=== PATIENT | male | born 1965 | race Two or more races ===

== ENCOUNTER 2018-02-01 17:25 | Inpatient (IN) | payer OTHER ==
[2018-02-01 17:43] VITALS: BMI 25.4
--- NOTE | 2018-02-01 21:31 | HP ---
CIWA Score - CIWA Score Nausea/Vomitin (voiting x 1) Muscle Tremors: 4-Moderate,w/Arms Extend Anxiety: 4-Mod. Anxious/Guarded Agitation: 1-Slight > Activity Paroxysmal Sweats: 1-Minimal Palms Moist Orientation: 1-Uncertain about Date Tacttile Disturbances: 0-None Auditory Disturbances: 0-None Visual Disturbances: 0-None Headache: 3-Moderate CIWA-Ar Total Score: 16 Admission ROS S - HPI Chief Complaint: Alcohol withdrawal symptoms Allergies/Adverse Reactions: Allergies Allergy/AdvReac Type Severity Reaction Status Date / Time fish derived [Fish derived] Allergy Intermediate Swelling Verified 02/01/18 18: 50 iodine [Iodine] Allergy Intermediate Verified 02/01/18 18:50 UNCODED ALLERGY SELECTION Allergy Intermediate SWELLING--D Verified 02/01/18 18: 48 YE History of Present Illness: 52 years old with a 15 years history of alcohol dependence is seeking admission to detox. Patient has been in previous detox and reports 18 months of sobriety. He reports medical history of depression. He reports suicide attempt in 1993 and denies suicidal and homicidal ideation at this time. Patient is on methadone 30mg with [facility]. LDM was today, 02/01/2018. Dose is yet to be confirmed by the nurse. Exam Limitations: No Limitations - Ebola screening Have you traveled outside of the country in the last 21 days: No Have you had contact with anyone from an Ebola affected area: No Have you been sick,other than usual withdrawal symptoms: No Do you have a fever: No - Review of Systems Constitutional: Chills, Loss of Appetite, Malaise, Night Sweats, Changes in sleep EENT: reports: Nose Congestion Respiratory: reports: No Symptoms reported Cardiac: reports: No Symptoms Reported GI: reports: Diarrhea, Nausea, Poor Appetite, Poor Fluid Intake, Vomiting, Abdominal cramping : reports: No Symptoms Reported Musculoskeletal: reports: No Symptoms Reported Integumentary: reports: Flushing Neuro: reports: Headache, Tingling, Tremors Endocrine: reports: Flushing Hematology: reports: No Symptoms Reported Psychiatric: reports: Agitated, Anxious Other Systems: Reviewed and Negative Patient History - Patient Medical History Hx Anemia: No Hx Asthma: No Hx Chronic Obstructive Pulmonary Disease (COPD): No Hx Cancer: No Hx Cardiac Disorders: No Hx Congestive Heart Failure: No Hx Hypertension: No Hx Hypercholesterolemia: No Hx Pacemaker: No HX Cerebrovascular Accident: No Hx Seizures: No Hx Dementia: No Hx Diabetes: No Hx Gastrointestinal Disorders: No Hx Liver Disease: No Hx Genitourinary Disorders: No Hx Sexually Transmitted Disorders: No Hx Renal Disease (ESRD): No Hx Thyroid Disease: No Hx Human Immunodeficiency Virus (HIV): No (NEGATIVE 2017) Hx Hepatitis C: No Hx Depression: Yes (ON MEDS) Hx Suicide Attempt: No (Suicide attempt in 1993. Denies suicidal ideation at this time) Hx Bipolar Disorder: Yes Hx Schizophrenia: No - Patient Surgical History Past Surgical History: No Hx Neurologic Surgery: No Hx Cataract Extraction: No Hx Cardiac Surgery: No Hx Lung Surgery: No Hx Abdominal Surgery: No Hx Appendectomy: No Hx Cholecystectomy: No Hx Genitourinary Surgery: No Hx Orthopedic Surgery: No Anesthesia Reaction: No - PPD History Previous Implant?: No Documented Results: Negative w/o proof Implanted On Prior [facility] Admission?: Yes Date: 05/12/12 Results: TBD PPD to be Administered?: Yes - Reproductive History Patient is a Female of Child Bearing Age (11 -55 yrs old): No (MALE) - Smoking Cessation Smoking history: Current every day smoker Have you smoked in the past 12 months: Yes Aproximately how many cigarettes per day: 5 Hx Chewing Tobacco Use: No Initiated information on smoking cessation: Yes 'Breaking Loose' booklet given: 02/01/18 - Substance & Tx. History Hx Alcohol Use: Yes Hx Substance Use: No Substance Use Type: Alcohol Hx Substance Use Treatment: Yes - Substances Abused Alcohol Route: Oral Frequency: Daily Amount used: VODKA - 2 pints Age of first use: 10 Date of Last Use: 02/01/18 Family Disease History - Family Disease History Family Disease History: Diabetes: Grandparent (GF-), CA: Father (COLON- ), Other: Mother (AIDS-) Admission Physical Exam BHS - Vital Signs Vital Signs: Vital Signs - 24 hr 02/01/18 17:40 Temperature 98.3 F Pulse Rate 114 H Respiratory 18 Rate Blood Pressure 129/79 - Physical General Appearance: Yes: Moderate Distress HEENTM: Yes: EOMI, Normal ENT Inspection, Normal Voice, SIERRA, Other (missing upper and lower teeth) Respiratory: Yes: Lungs Clear, Normal Breath Sounds, No Respiratory Distress Neck: Yes: Supple Breast: Yes: Breast Exam Deferred Cardiology: Yes: Regular Rhythm, Regular Rate, Tachycardia Abdominal: Yes: Normal Bowel Sounds Genitourinary: Yes: Within Normal Limits Back: Yes: Normal Inspection Musculoskeletal: Yes: Back pain Extremities: Yes: Normal Inspection Neurological: Yes: Alert, Normal Mood/Affect Integumentary: Yes: Dry Lymphatic: Yes: Within Normal Limits - Diagnostic (1) Depression Current Visit: Yes Status: Chronic Qualifiers: Major depression episode severity: unspecified (2) Nicotine dependence Current Visit: Yes Status: Chronic Qualifiers: Nicotine product type: cigarettes Substance use status: uncomplicated Qualified Code(s): F17.210 - Nicotine dependence, cigarettes, uncomplicated (3) Alcohol dependence with uncomplicated withdrawal Current Visit: Yes Status: Chronic (4) Methadone maintenance therapy patient Current Visit: Yes Status: Chronic BHS Breath Alcohol Content Breath Alcohol Content: 0.177 Urine Drug Screen - Results Drug Screen Negative: No Urine Drug Screen Results: MTD-Methadone
[2018-02-01] MEDS ORDERED: P-EPHED 60MG/TRIPROLIDI 2.5MG TABLET PO PRN (21:44)
[2018-02-01] MEDS ORDERED: ACETAMINOPHEN 325 MG TABLET (FP) PO PRN (21:44)
[2018-02-01] MEDS ORDERED: MENTHOL/PHENOL 1 EACH UD MM PRN (21:44)
[2018-02-01] MEDS ORDERED: IBUPROFEN 400 MG TABLET (FP) PO PRN (21:44)
[2018-02-01] MEDS ORDERED: MAG HYDROX/AL HYDROX/SIMETH 30 ML UNIT-DOSE CUP PO PRN (21:44)
[2018-02-01] MEDS ORDERED: MAGNESIUM CITRATE 300 ML BOTTLE PO PRN (21:44)
[2018-02-01] MEDS ORDERED: chlordiazePOXIDE HCL 25 MG CAPSULE PO PRN (21:44)
[2018-02-01] MEDS ORDERED: MAGNESIUM HYDROX 2400MG/30ML ORAL SUSPENSION 30 ML CUP PO PRN (21:44)
[2018-02-01] MEDS ORDERED: LOPERAMIDE HCL 2 MG CAPSULE PO PRN (21:44)
[2018-02-01] MEDS ORDERED: guaiFENesin/D-METHORPHAN HB 10 ML UNIT-DOSE CUPS PO PRN (21:44)
[2018-02-01] MEDS ORDERED: NICOTINE POLACRILEX 2 MG GUM BC PRN (21:44)
[2018-02-01] MEDS ORDERED: MELATONIN 5 MG TABLETS PO PRN (22:00)
[2018-02-01] MEDS: chlordiazePOXIDE HCL 25 MG CAPSULE PO SCH (23:08)
[2018-02-01] MEDS: THIAMINE HCL 100 MG TABLET (FP) PO SCH (23:08)
[2018-02-02 02:09] LABS: URINE APPEARANCE CLEAR; URINE BILIRUBIN NEGATIVE (<2.0 mg/dL); URINE BLOOD NEGATIVE (NEGATIVE); URINE COLOR AMBER; URINE GLUCOSE (UA) NEGATIVE (NEGATIVE); URINE KETONE NEGATIVE (NEGATIVE); URINE LEUK ESTERASE TRACE (NEGATIVE); URINE NITRITE NEGATIVE (NEGATIVE); URINE UROBILINOGEN 4.0 E.U/dl mg/dL (0.2-1.0)
[2018-02-02 02:12] LABS: URINE PROTEIN 2+ (NEGATIVE)
[2018-02-02 03:20] LABS: URINE MUCUS MODERATE
[2018-02-02] MEDS: chlordiazePOXIDE HCL 25 MG CAPSULE PO SCH ×4 (05:26→22:41)
[2018-02-02] MEDS ORDERED: METHADONE HCL 10 MG TABLET PO ONE (09:08)
[2018-02-02 09:59] LABS: HEMATOCRIT 38.9 % (35.4-49); HEMOGLOBIN 12.7 GM/dL (11.7-16.9); MCH 30.1 pg (25.7-33.7); MCHC 32.8 g/dl (32.0-35.9); MEAN CELL VOLUME 91.9 fl (80-96); MEAN PLT VOLUME 8.9 fl (7.5-11.1); PLATELET COUNT 263 K/MM3 (134-434); RBC 4.23 M/mm3 (4.00-5.60); RDW 15.7 % (11.9-15.9); WHITE BLOOD COUNT 4.2 K/mm3 (4.0-10.0)
[2018-02-02] MEDS: PRENATAL VITAMINS W/ FOLIC ACID TABLET (FP) PO SCH (10:12)
[2018-02-02] MEDS: NICOTINE 14 MG/24 HOURS TOPICAL PATCH TD SCH (10:13)
[2018-02-02 10:24] LABS: CHLORIDE 102 mmol/L (98-107); POTASSIUM 4.5 mmol/L (3.5-5.1); SODIUM 139 mmol/L (136-145)
[2018-02-02 10:43] LABS: ALBUMIN 3.8 g/dl (3.4-5.0); ALK PHOS 101 U/L (45-117); ANION GAP 6 (8-16); BILIRUBIN,TOTAL 0.4 mg/dL (0.2-1.0); BLOOD UREA NITROGEN 17 mg/dL (7-18); CALCIUM 9.4 mg/dL (8.5-10.1); CO2 31 mmol/L (21-32); CREATININE 0.7 mg/dL (0.7-1.3); GLUCOSE,RANDOM 72 mg/dL (74-106); SGOT/AST 100 U/L (15-37); SGPT/ALT 128 U/L (12-78); TOT PROT 7.3 g/dl (6.4-8.2)
--- NOTE | 2018-02-02 10:43 | PN ---
S CIWA - CIWA Score Nausea/Vomitin-No Nausea/No Vomiting Muscle Tremors: 3 Anxiety: 5 Agitation: 4-Moderately Restless Paroxysmal Sweats: 1-Minimal Palms Moist Orientation: 0-Oriented Tacttile Disturbances: 0-None Auditory Disturbances: 0-None Visual Disturbances: 0-None Headache: 0-None Present CIWA-Ar Total Score: 13 S Progress Note (SOAP) Subjective: ANXIETY,SWEATS,FATIGUE,INTERMITTENT SLEEP. Objective: 02/02/18 10:42 Vital Signs Temperature 97.5 F L 02/02/18 09:22 Pulse Rate 76 02/02/18 09:22 Respiratory Rate 18 02/02/18 09:22 Blood Pressure 101/63 02/02/18 09:22 O2 Sat by Pulse Oximetry (%) Laboratory Last Values WBC 4.2 K/mm3 (4.0-10.0) D 02/02/18 07:00 RBC 4.23 M/mm3 (4.00-5.60) 02/02/18 07:00 Hgb 12.7 GM/dL (11.7-16.9) 02/02/18 07:00 Hct 38.9 % (35.4-49) 02/02/18 07:00 MCV 91.9 fl (80-96) 02/02/18 07:00 MCH 30.1 pg (25.7-33.7) D 02/02/18 07:00 MCHC 32.8 g/dl (32.0-35.9) 02/02/18 07:00 RDW 15.7 % (11.9-15.9) 02/02/18 07:00 Plt Count 263 K/MM3 (134-434) 02/02/18 07:00 MPV 8.9 fl (7.5-11.1) 02/02/18 07:00 Urine Color [place] 02/01/18 22:00 Urine Appearance Clear 02/01/18 22:00 Urine pH 6.0 (5.0-8.0) 02/01/18 22:00 Ur Specific [place] 1.030 (1.001-1.035) 02/01/18 22:00 Urine Protein 2+ (NEGATIVE) H 02/01/18 22:00 Urine Glucose (UA) Negative (NEGATIVE) 02/01/18 22:00 Urine Ketones Negative (NEGATIVE) 02/01/18 22:00 Urine Blood Negative (NEGATIVE) 02/01/18 22:00 Urine Nitrite Negative (NEGATIVE) 02/01/18 22:00 Urine Bilirubin Negative (<2.0 mg/dL) 02/01/18 22:00 Urine Urobilinogen 4.0 e.u/dl mg/dL (0.2-1.0) 02/01/18 22:00 Ur Leukocyte Esterase Trace (NEGATIVE) 02/01/18 22:00 Urine WBC (Auto) 6-10 /hpf (3-5) 02/01/18 22:00 Urine RBC (Auto) None /hpf (0-3) 02/01/18 22:00 Urine Mucus Moderate 02/01/18 22:00 Assessment: 02/02/18 10:43 WITHDRAWAL SX Plan: CONTINUE DETOX INCREASE PO FLUIDS REPEAT UA;UC TODAY
--- NOTE | 2018-02-02 14:01 | CONSULT ---
[facility] Psychiatric Consult - Data Date of interview: 02/02/18 Admission source: [facility] Identifying data: Readmission to [facility] for this 52 y/o male seeking detox treatment on for alcohol dependence.Patient is ,a father of six,homeless,unemployed and supported on SSI benefits. Substance Abuse History: Discussed with the patient.Mr Conde endorses a 40+ year history of alcohol abuse (consumes 1-2 pints of vodka daily).More details in current [facility] report : Smoking history: Current every day smoker. Have you smoked in the past 12 months: Yes. Aproximately how many cigarettes per day: 5. Hx Chewing Tobacco Use: No. Initiated information on smoking cessation: Yes. 'Breaking Loose' booklet given: 02/01/18. - Substance & Tx. History. Hx Alcohol Use: Yes. Hx Substance Use: No. Substance Use Type: Alcohol. Hx Substance Use Treatment: Yes. - Substances Abused. Alcohol. Route: Oral. Frequency: Daily. Amount used: VODKA - 2 pints. Age of first use: 10. Date of Last Use: 02/01/18 Medical History: Patient reports good general health. Psychiatric History: Patient admits to a history of 3-5 psychiatric hospitalizations.Onset of mental illness : early 20's. Known to [facility],[place] and other facilities in [facility].Diagnosed with Schizophrenia.Mr Conde indicates maintenance on thorazine 100 mg po bid.Patient reports OPD care at [facility] mental health clinic.Currently on methadone maintenance (30 mg/day) at [facility] .Denies history of suicide attempts. Physical/Sexual Abuse/Trauma History: Patient denies. Additional Comment: Urine Drug Screen Results: MTD-Methadone.Noted. Mental Status Exam - Mental Status Exam Alert and Oriented to: Time, Place, Person Cognitive Function: Good Patient Appearance: Well Groomed Mood: Nervous, Withdrawn Affect: Mood Congruent Patient Behavior: Fatigued, Cooperative Speech Pattern: Clear, Appropriate Voice Loudness: Normal Thought Process: Intact, Goal Oriented Thought Disorder: Not Present Hallucinations: Denies Suicidal Ideation: Denies Homicidal Ideation: Denies Insight/Judgement: Poor Sleep: Poorly, Difficulty falling asleep Appetite: Good Muscle strength/Tone: Normal Gait/Station: Normal Psychiatric Findings - Problem List ([place] 1, 2,3) (1) Alcohol dependence with uncomplicated withdrawal Current Visit: Yes Status: Chronic (2) Opioid dependence on agonist therapy Current Visit: Yes Status: Acute (3) Nicotine dependence Current Visit: Yes Status: Chronic Qualifiers: Nicotine product type: cigarettes Substance use status: uncomplicated Qualified Code(s): F17.210 - Nicotine dependence, cigarettes, uncomplicated (4) Schizophrenia Current Visit: Yes Status: Chronic Qualifiers: Schizophrenia type: unspecified Qualified Code(s): F20.9 - Schizophrenia, unspecified Comment: As per self-report and existing records. (5) Insomnia Current Visit: Yes Status: Acute - Initial Treatment Plan Initial Treatment Plan: Psychoeducation.Sleep hygiene.Detoxification in progress.Medication : thorazine 50 mg po bid.Side effects/benefits discussed with patient.Mr Conde agrees with this plan of care.Observation.
--- NOTE | 2018-02-02 16:45 | EKG ---
Test Reason : Blood Pressure : / mmHG Vent. Rate : 072 BPM Atrial Rate : 072 BPM P-R Int : 132 ms QRS Dur : 090 ms QT Int : 382 ms P-R-T Axes : 049 040 008 degrees QTc Int : 418 ms NORMAL SINUS RHYTHM NORMAL ECG NO PREVIOUS ECGS AVAILABLE Confirmed by MD Mathew, Fred ([id number]) on 02/02/2018 4:45:09 PM Referred By: Confirmed By:Fred Carmona MD
[2018-02-02 19:11] LABS: URINE APPEARANCE CLEAR; URINE BILIRUBIN NEGATIVE (<2.0 mg/dL); URINE BLOOD NEGATIVE (NEGATIVE); URINE COLOR YELLOW; URINE GLUCOSE (UA) NEGATIVE (NEGATIVE); URINE KETONE NEGATIVE (NEGATIVE); URINE LEUK ESTERASE NEGATIVE (NEGATIVE); URINE NITRITE NEGATIVE (NEGATIVE); URINE PROTEIN NEGATIVE (NEGATIVE)
[2018-02-02] MEDS: THIAMINE HCL 100 MG TABLET (FP) PO SCH (22:41)
[2018-02-02] MEDS: chlorproMAZINE HCL 25 MG TABLET PO SCH (22:43)
[2018-02-03] MEDS: chlordiazePOXIDE HCL 25 MG CAPSULE PO SCH ×3 (05:39→16:58)
[2018-02-03] MEDS: METHADONE HCL 10 MG TABLET PO SCH (05:40)
[2018-02-03] MEDS: PRENATAL VITAMINS W/ FOLIC ACID TABLET (FP) PO SCH (10:13)
[2018-02-03] MEDS: chlorproMAZINE HCL 25 MG TABLET PO SCH ×2 (10:14→22:22)
[2018-02-03] MEDS: NICOTINE 14 MG/24 HOURS TOPICAL PATCH TD SCH (10:16)
--- NOTE | 2018-02-03 10:56 | PN ---
[facility] CIWA - CIWA Score Nausea/Vomitin-No Nausea/No Vomiting Muscle Tremors: 5 Anxiety: 4-Mod. Anxious/Guarded Agitation: 2 Paroxysmal Sweats: No Perspiration Orientation: 0-Oriented Tacttile Disturbances: 3-Moderate Itch/Numb/Burn Auditory Disturbances: 0-None Visual Disturbances: 0-None Headache: 0-None Present CIWA-Ar Total Score: 14 S Progress Note (SOAP) Subjective: ANXIETY,IRRITABILITY,TREMORS,RESTLESSNESS,INTERMITTENT SLEEP. Objective: 02/03/18 10:57 Vital Signs Temperature 96.8 F L 02/03/18 09:15 Pulse Rate 68 02/03/18 09:15 Respiratory Rate 18 02/03/18 09:15 Blood Pressure 117/82 02/03/18 09:15 O2 Sat by Pulse Oximetry (%) Laboratory Last Values WBC 4.2 K/mm3 (4.0-10.0) D 02/02/18 07:00 RBC 4.23 M/mm3 (4.00-5.60) 02/02/18 07:00 Hgb 12.7 GM/dL (11.7-16.9) 02/02/18 07:00 Hct 38.9 % (35.4-49) 02/02/18 07:00 MCV 91.9 fl (80-96) 02/02/18 07:00 MCH 30.1 pg (25.7-33.7) D 02/02/18 07:00 MCHC 32.8 g/dl (32.0-35.9) 02/02/18 07:00 RDW 15.7 % (11.9-15.9) 02/02/18 07:00 Plt Count 263 K/MM3 (134-434) 02/02/18 07:00 MPV 8.9 fl (7.5-11.1) 02/02/18 07:00 Sodium 139 mmol/L (136-145) 02/02/18 07:00 Potassium 4.5 mmol/L (3.5-5.1) 02/02/18 07:00 Chloride 102 mmol/L (98-107) 02/02/18 07:00 Carbon Dioxide 31 mmol/L (21-32) 02/02/18 07:00 Anion Gap 6 (8-16) L 02/02/18 07:00 BUN 17 mg/dL (7-18) 02/02/18 07:00 Creatinine 0.7 mg/dL (0.7-1.3) D 02/02/18 07:00 Creat Clearance w eGFR > 60 (>60) 02/02/18 07:00 Random Glucose 72 mg/dL (74-106) L D 02/02/18 07:00 Calcium 9.4 mg/dL (8.5-10.1) 02/02/18 07:00 Total Bilirubin 0.4 mg/dL (0.2-1.0) 02/02/18 07:00 AST 100 U/L (15-37) H D 02/02/18 07:00 ALT 128 U/L (12-78) H D 02/02/18 07:00 Alkaline Phosphatase 101 U/L (45-117) D 02/02/18 07:00 Total Protein 7.3 g/dl (6.4-8.2) 02/02/18 07:00 Albumin 3.8 g/dl (3.4-5.0) 02/02/18 07:00 Urine Color Yellow 02/02/18 14:00 Urine Appearance Clear 02/02/18 14:00 Urine pH 7.0 (5.0-8.0) 02/02/18 14:00 Ur Specific [place] 1.027 (1.001-1.035) 02/02/18 14:00 Urine Protein Negative (NEGATIVE) 02/02/18 14:00 Urine Glucose (UA) Negative (NEGATIVE) 02/02/18 14:00 Urine Ketones Negative (NEGATIVE) 02/02/18 14:00 Urine Blood Negative (NEGATIVE) 02/02/18 14:00 Urine Nitrite Negative (NEGATIVE) 02/02/18 14:00 Urine Bilirubin Negative (<2.0 mg/dL) 02/02/18 14:00 Urine Urobilinogen 2.0 mg/dL (0.2-1.0) 02/02/18 14:00 Ur Leukocyte Esterase Negative (NEGATIVE) 02/02/18 14:00 Urine WBC (Auto) 6-10 /hpf (3-5) 02/01/18 22:00 Urine RBC (Auto) None /hpf (0-3) 02/01/18 22:00 Urine Mucus Moderate 02/01/18 22:00 Assessment: 02/03/18 10:57 WITHDRAWAL SX Plan: CONTINUE DETOX INCREASE PO FLUIDS
[2018-02-03] MEDS: chlordiazePOXIDE 5 MG CAPSULE PO SCH (22:22)
[2018-02-03] MEDS: THIAMINE HCL 100 MG TABLET (FP) PO SCH (22:22)
[2018-02-04] MEDS: METHADONE HCL 10 MG TABLET PO SCH (05:32)
[2018-02-04] MEDS: chlordiazePOXIDE 5 MG CAPSULE PO SCH ×3 (05:32→17:41)
[2018-02-04] MEDS: NICOTINE 14 MG/24 HOURS TOPICAL PATCH TD SCH (10:00)
[2018-02-04] MEDS: PRENATAL VITAMINS W/ FOLIC ACID TABLET (FP) PO SCH (10:00)
[2018-02-04] MEDS: chlorproMAZINE HCL 25 MG TABLET PO SCH ×2 (10:01→23:08)
--- NOTE | 2018-02-04 10:48 | PN ---
BHS Progress Note (SOAP) Subjective: SLIGHT ANXIETY,SWEATS. OOB AMBULATING WITH STEADY GAIT. Objective: 02/04/18 10:46 Vital Signs Temperature 96.4 F L 02/04/18 09:26 Pulse Rate 86 02/04/18 09:26 Respiratory Rate 18 02/04/18 09:26 Blood Pressure 121/77 02/04/18 09:26 O2 Sat by Pulse Oximetry (%) Laboratory Last Values WBC 4.2 K/mm3 (4.0-10.0) D 02/02/18 07:00 RBC 4.23 M/mm3 (4.00-5.60) 02/02/18 07:00 Hgb 12.7 GM/dL (11.7-16.9) 02/02/18 07:00 Hct 38.9 % (35.4-49) 02/02/18 07:00 MCV 91.9 fl (80-96) 02/02/18 07:00 MCH 30.1 pg (25.7-33.7) D 02/02/18 07:00 MCHC 32.8 g/dl (32.0-35.9) 02/02/18 07:00 RDW 15.7 % (11.9-15.9) 02/02/18 07:00 Plt Count 263 K/MM3 (134-434) 02/02/18 07:00 MPV 8.9 fl (7.5-11.1) 02/02/18 07:00 Sodium 139 mmol/L (136-145) 02/02/18 07:00 Potassium 4.5 mmol/L (3.5-5.1) 02/02/18 07:00 Chloride 102 mmol/L (98-107) 02/02/18 07:00 Carbon Dioxide 31 mmol/L (21-32) 02/02/18 07:00 Anion Gap 6 (8-16) L 02/02/18 07:00 BUN 17 mg/dL (7-18) 02/02/18 07:00 Creatinine 0.7 mg/dL (0.7-1.3) D 02/02/18 07:00 Creat Clearance w eGFR > 60 (>60) 02/02/18 07:00 Random Glucose 72 mg/dL (74-106) L D 02/02/18 07:00 Calcium 9.4 mg/dL (8.5-10.1) 02/02/18 07:00 Total Bilirubin 0.4 mg/dL (0.2-1.0) 02/02/18 07:00 AST 100 U/L (15-37) H D 02/02/18 07:00 ALT 128 U/L (12-78) H D 02/02/18 07:00 Alkaline Phosphatase 101 U/L (45-117) D 02/02/18 07:00 Total Protein 7.3 g/dl (6.4-8.2) 02/02/18 07:00 Albumin 3.8 g/dl (3.4-5.0) 02/02/18 07:00 Urine Color Yellow 02/02/18 14:00 Urine Appearance Clear 02/02/18 14:00 Urine pH 7.0 (5.0-8.0) 02/02/18 14:00 Ur Specific [place] 1.027 (1.001-1.035) 02/02/18 14:00 Urine Protein Negative (NEGATIVE) 02/02/18 14:00 Urine Glucose (UA) Negative (NEGATIVE) 02/02/18 14:00 Urine Ketones Negative (NEGATIVE) 02/02/18 14:00 Urine Blood Negative (NEGATIVE) 02/02/18 14:00 Urine Nitrite Negative (NEGATIVE) 02/02/18 14:00 Urine Bilirubin Negative (<2.0 mg/dL) 02/02/18 14:00 Urine Urobilinogen 2.0 mg/dL (0.2-1.0) 02/02/18 14:00 Ur Leukocyte Esterase Negative (NEGATIVE) 02/02/18 14:00 Urine WBC (Auto) 6-10 /hpf (3-5) 02/01/18 22:00 Urine RBC (Auto) None /hpf (0-3) 02/01/18 22:00 Urine Mucus Moderate 02/01/18 22:00 RPR Titer Nonreactive (NONREACTIVE) 02/02/18 07:00 02/04/18 10:47 Laboratory Tests 02/01/18 02/02/18 02/02/18 22:00 07:00 07:00 WBC 4.2 D RBC 4.23 Hgb 12.7 Hct 38.9 MCV 91.9 MCH 30.1 D MCHC 32.8 RDW 15.7 Plt Count 263 MPV 8.9 Sodium 139 Potassium 4.5 Chloride 102 Carbon Dioxide 31 Anion Gap 6 L BUN 17 Creatinine 0.7 D Creat Clearance w eGFR > 60 Random Glucose 72 L D Calcium 9.4 Total Bilirubin 0.4 AST 100 H D ALT 128 H D Alkaline Phosphatase 101 D Total Protein 7.3 Albumin 3.8 Urine Color Emili Urine Appearance Clear Urine pH 6.0 Ur Specific [place] 1.030 Urine Protein 2+ H Urine Glucose (UA) Negative Urine Ketones Negative Urine Blood Negative Urine Nitrite Negative Urine Bilirubin Negative Urine Urobilinogen 4.0 e.u/dl Ur Leukocyte Esterase Trace Urine WBC (Auto) 6-10 Urine RBC (Auto) None Urine Mucus Moderate RPR Titer 02/02/18 02/02/18 07:00 14:00 WBC RBC Hgb Hct MCV MCH MCHC RDW Plt Count MPV Sodium Potassium Chloride Carbon Dioxide Anion Gap BUN Creatinine Creat Clearance w eGFR Random Glucose Calcium Total Bilirubin AST ALT Alkaline Phosphatase Total Protein Albumin Urine Color Yellow Urine Appearance Clear Urine pH 7.0 Ur Specific [place] 1.027 Urine Protein Negative Urine Glucose (UA) Negative Urine Ketones Negative Urine Blood Negative Urine Nitrite Negative Urine Bilirubin Negative Urine Urobilinogen 2.0 Ur Leukocyte Esterase Negative Urine WBC (Auto) Urine RBC (Auto) Urine Mucus RPR Titer Nonreactive REPEAT UA WNL UC RESULT PENDING Assessment: 02/04/18 10:47 WITHDRAWAL SX Plan: CONTINUE DETOX/INCREASED PO FLUIDS
[2018-02-04] MEDS: chlordiazePOXIDE HCL 10 MG CAPSULE PO SCH (23:08)
[2018-02-04] MEDS: THIAMINE HCL 100 MG TABLET (FP) PO SCH (23:08)
[2018-02-05] MEDS: METHADONE HCL 10 MG TABLET PO SCH (05:45)
[2018-02-05 06:24] VITALS: BP 91/67; PULSE 72; TEMP 96.9
[2018-02-05] MEDS: chlordiazePOXIDE HCL 10 MG CAPSULE PO SCH (06:30)
--- NOTE | 2018-02-05 09:02 | DS ---
[facility] Detox Discharge Summary Admission Date: 02/01/18 Discharge Date: 02/05/18 - History Present History: Alcohol Dependence, MMTP Additional Comments: DETOX COMPLETED. Pertinent Past History: PLEASE SEE DX BELOW - Physical Exam Results Vital Signs: Vital Signs Temperature 96.9 F L 02/05/18 06:24 Pulse Rate 72 02/05/18 06:24 Respiratory Rate 18 02/05/18 06:24 Blood Pressure 91/67 02/05/18 06:24 O2 Sat by Pulse Oximetry (%) Pertinent Admission Physical Exam Findings: WITHDRAWAL SX Laboratory Last Values WBC 4.2 K/mm3 (4.0-10.0) D 02/02/18 07:00 RBC 4.23 M/mm3 (4.00-5.60) 02/02/18 07:00 Hgb 12.7 GM/dL (11.7-16.9) 02/02/18 07:00 Hct 38.9 % (35.4-49) 02/02/18 07:00 MCV 91.9 fl (80-96) 02/02/18 07:00 MCH 30.1 pg (25.7-33.7) D 02/02/18 07:00 MCHC 32.8 g/dl (32.0-35.9) 02/02/18 07:00 RDW 15.7 % (11.9-15.9) 02/02/18 07:00 Plt Count 263 K/MM3 (134-434) 02/02/18 07:00 MPV 8.9 fl (7.5-11.1) 02/02/18 07:00 Sodium 139 mmol/L (136-145) 02/02/18 07:00 Potassium 4.5 mmol/L (3.5-5.1) 02/02/18 07:00 Chloride 102 mmol/L (98-107) 02/02/18 07:00 Carbon Dioxide 31 mmol/L (21-32) 02/02/18 07:00 Anion Gap 6 (8-16) L 02/02/18 07:00 BUN 17 mg/dL (7-18) 02/02/18 07:00 Creatinine 0.7 mg/dL (0.7-1.3) D 02/02/18 07:00 Creat Clearance w eGFR > 60 (>60) 02/02/18 07:00 Random Glucose 72 mg/dL (74-106) L D 02/02/18 07:00 Calcium 9.4 mg/dL (8.5-10.1) 02/02/18 07:00 Total Bilirubin 0.4 mg/dL (0.2-1.0) 02/02/18 07:00 AST 100 U/L (15-37) H D 02/02/18 07:00 ALT 128 U/L (12-78) H D 02/02/18 07:00 Alkaline Phosphatase 101 U/L (45-117) D 02/02/18 07:00 Total Protein 7.3 g/dl (6.4-8.2) 02/02/18 07:00 Albumin 3.8 g/dl (3.4-5.0) 02/02/18 07:00 Urine Color Yellow 02/02/18 14:00 Urine Appearance Clear 02/02/18 14:00 Urine pH 7.0 (5.0-8.0) 02/02/18 14:00 Ur Specific [place] 1.027 (1.001-1.035) 02/02/18 14:00 Urine Protein Negative (NEGATIVE) 02/02/18 14:00 Urine Glucose (UA) Negative (NEGATIVE) 02/02/18 14:00 Urine Ketones Negative (NEGATIVE) 02/02/18 14:00 Urine Blood Negative (NEGATIVE) 02/02/18 14:00 Urine Nitrite Negative (NEGATIVE) 02/02/18 14:00 Urine Bilirubin Negative (<2.0 mg/dL) 02/02/18 14:00 Urine Urobilinogen 2.0 mg/dL (0.2-1.0) 02/02/18 14:00 Ur Leukocyte Esterase Negative (NEGATIVE) 02/02/18 14:00 Urine WBC (Auto) 6-10 /hpf (3-5) 02/01/18 22:00 Urine RBC (Auto) None /hpf (0-3) 02/01/18 22:00 Urine Mucus Moderate 02/01/18 22:00 RPR Titer Nonreactive (NONREACTIVE) 02/02/18 07:00 Laboratory Tests 02/01/18 02/02/18 02/02/18 22:00 07:00 07:00 WBC 4.2 D RBC 4.23 Hgb 12.7 Hct 38.9 MCV 91.9 MCH 30.1 D MCHC 32.8 RDW 15.7 Plt Count 263 MPV 8.9 Sodium 139 Potassium 4.5 Chloride 102 Carbon Dioxide 31 Anion Gap 6 L BUN 17 Creatinine 0.7 D Creat Clearance w eGFR > 60 Random Glucose 72 L D Calcium 9.4 Total Bilirubin 0.4 AST 100 H D ALT 128 H D Alkaline Phosphatase 101 D Total Protein 7.3 Albumin 3.8 Urine Color Emili Urine Appearance Clear Urine pH 6.0 Ur Specific [place] 1.030 Urine Protein 2+ H Urine Glucose (UA) Negative Urine Ketones Negative Urine Blood Negative Urine Nitrite Negative Urine Bilirubin Negative Urine Urobilinogen 4.0 e.u/dl Ur Leukocyte Esterase Trace Urine WBC (Auto) 6-10 Urine RBC (Auto) None Urine Mucus Moderate RPR Titer 02/02/18 02/02/18 07:00 14:00 WBC RBC Hgb Hct MCV MCH MCHC RDW Plt Count MPV Sodium Potassium Chloride Carbon Dioxide Anion Gap BUN Creatinine Creat Clearance w eGFR Random Glucose Calcium Total Bilirubin AST ALT Alkaline Phosphatase Total Protein Albumin Urine Color Yellow Urine Appearance Clear Urine pH 7.0 Ur Specific [place] 1.027 Urine Protein Negative Urine Glucose (UA) Negative Urine Ketones Negative Urine Blood Negative Urine Nitrite Negative Urine Bilirubin Negative Urine Urobilinogen 2.0 Ur Leukocyte Esterase Negative Urine WBC (Auto) Urine RBC (Auto) Urine Mucus RPR Titer Nonreactive - Treatment Hospital Course: Detox Protocol Followed, Detoxed Safely, Responded well, Discharged Condition Good - Medication Discharge Medications: Ambulatory Orders Chlorpromazine [Thorazine -] 100 mg PO BID #30 tablet 06/30/16 Chlorpromazine [Thorazine -] 50 mg PO BID #60 tablet 02/05/18 - Diagnosis (1) Alcohol dependence with uncomplicated withdrawal Status: Acute (2) Methadone maintenance therapy patient Status: Chronic (3) Nicotine dependence Status: Acute Qualifiers: Nicotine product type: cigarettes Substance use status: in withdrawal Qualified Code(s): F17.213 - Nicotine dependence, cigarettes, with withdrawal (4) Insomnia Status: Acute (5) Schizophrenia Status: Chronic Qualifiers: Schizophrenia type: unspecified Qualified Code(s): F20.9 - Schizophrenia, unspecified - AMA Did Patient Leave Against Medical Advice: No
== END 2018-02-05 07:16 | disposition home or self-care (01) | DRG 773 ==
LOC: YASAS 17:25 → Y3N 18:56
PROVIDERS: ADMIT Internal Medicine; ATTEND Internal Medicine
PROC: HZ2ZZZZ Detoxification Services for Substance Abuse Treatment (ICD-10-PCS; principal; 2018-02-01)
DX: F11.20 Opioid dependence, uncomplicated (principal); F10.230 Alcohol dependence with withdrawal, uncomplicated; F17.210 Nicotine dependence, cigarettes, uncomplicated; F20.9 Schizophrenia, unspecified; F31.9 Bipolar disorder, unspecified; G47.00 Insomnia, unspecified
CPT/HCPCS: 36415; 80053; 81003; 81015; 85027; 86593; 87086; 93005; 93010

== ENCOUNTER 2018-08-24 17:12 | Inpatient (IN) | payer OTHER ==
[2018-08-24 19:39] VITALS: BMI 25.8
--- NOTE | 2018-08-24 20:34 | HP ---
CIWA Score - CIWA Score Nausea/Vomitin Muscle Tremors: 2 Anxiety: 2 Agitation: 2 Paroxysmal Sweats: 2 Orientation: 1-Uncertain about Date Tacttile Disturbances: 0-None Auditory Disturbances: 0-None Visual Disturbances: 0-None Headache: 0-None Present CIWA-Ar Total Score: 12 Admission ROS BHS - HPI Chief Complaint: alcohol withdrawal symptoms Allergies/Adverse Reactions: Allergies Allergy/AdvReac Type Severity Reaction Status Date / Time fish derived [Fish derived] Allergy Intermediate Swelling Verified 06/28/18 18: 41 iodine [Iodine] Allergy Intermediate Verified 06/28/18 18:41 UNCODED ALLERGY SELECTION Allergy Intermediate SWELLING--D Verified 06/28/18 18: 41 YE History of Present Illness: 53 yo male with hx nicotine, alcohol, opioid and alcohol dependence is here seeking alcohol detox. Last detox [facility] 06/28/18 - 07/01/18. MMTP: [facility] on methadone maintenance 30 mg, last medicated today. Dose pending verification. PMHX: Hep C, depression. Denies suicidal / homicidal ideation. Denies hx seizures. Reports hx blackouts with last episode yesterday. Denies any significant period of sobriety. Exam Limitations: No Limitations - Ebola screening Have you traveled outside of the country in the last 21 days: No (N) Have you had contact with anyone from an Ebola affected area: No Have you been sick,other than usual withdrawal symptoms: No Do you have a fever: No - Review of Systems Constitutional: Loss of Appetite, Changes in sleep EENT: reports: No Symptoms Reported Respiratory: reports: No Symptoms reported Cardiac: reports: No Symptoms Reported GI: reports: Nausea, Poor Fluid Intake, Vomiting : reports: No Symptoms Reported Musculoskeletal: reports: No Symptoms Reported Integumentary: reports: No Symptoms Reported Neuro: reports: See HPI Endocrine: reports: Increased Thirst Hematology: reports: No Symptoms Reported Psychiatric: reports: Orientated x3, Depressed Other Systems: Reviewed and Negative Patient History - Patient Medical History Hx Anemia: No Hx Asthma: No Hx Chronic Obstructive Pulmonary Disease (COPD): No Hx Cancer: No Hx Cardiac Disorders: No Hx Congestive Heart Failure: No Hx Hypertension: No Hx Hypercholesterolemia: No Hx Pacemaker: No HX Cerebrovascular Accident: No Hx Seizures: No Hx Dementia: No Hx Diabetes: No Hx Gastrointestinal Disorders: No Hx Liver Disease: No Hx Genitourinary Disorders: No Hx Sexually Transmitted Disorders: No Hx Renal Disease (ESRD): No Hx Thyroid Disease: No Hx Human Immunodeficiency Virus (HIV): No Hx Hepatitis C: Yes (TXMENT IN PROGRESS) Hx Depression: Yes (ON MEDS) Hx Suicide Attempt: Yes (Suicide attempt in 1993. Denies suicidal ideation at this time) Hx Bipolar Disorder: Yes Hx Schizophrenia: No - Patient Surgical History Past Surgical History: No Hx Neurologic Surgery: No Hx Cataract Extraction: No Hx Cardiac Surgery: No Hx Lung Surgery: No Hx Breast Surgery: No Hx Breast Biopsy: No Hx Abdominal Surgery: No Hx Appendectomy: No Hx Cholecystectomy: No Hx Genitourinary Surgery: No Hx Section: No Hx Orthopedic Surgery: No Anesthesia Reaction: No - PPD History Previous Implant?: Yes Documented Results: Negative w/proof Date: 02/03/18 Results: 0MM PPD to be Administered?: No - Smoking Cessation Smoking history: Current every day smoker Have you smoked in the past 12 months: Yes Aproximately how many cigarettes per day: 5 Hx Chewing Tobacco Use: No Initiated information on smoking cessation: Yes 'Breaking Loose' booklet given: 08/24/18 - Substance & Tx. History Hx Alcohol Use: Yes Substance Use Type: Alcohol Hx Substance Use Treatment: Yes (Last detox [facility] 06/28/18 - 07/01/18) - Substances Abused Alcohol Route: Oral Frequency: Daily Amount used: 2 pints Age of first use: 7 Date of Last Use: 08/24/18 Family Disease History - Family Disease History Family Disease History: Diabetes: Grandparent (GF-), CA: Father (COLON- ), Other: Mother (AIDS-) Admission Physical Exam [facility] - Vital Signs Vital Signs: Vital Signs - 24 hr 08/24/18 19:37 Temperature 97.9 F Pulse Rate 82 Respiratory 18 Rate Blood Pressure 112/70 - Physical General Appearance: Yes: Disheveled, Mild Distress, Alcohol on Breath, Sweating , Anxious HEENTM: Yes: EOMI, Hearing grossly Normal, Normal ENT Inspection, Normocephalic , Normal Voice, SIERRA, Pharynx Normal, Tm's normal Respiratory: Yes: Chest Non-Tender, Lungs Clear, Normal Breath Sounds, No Respiratory Distress, No Accessory Muscle Use Neck: Yes: Within Normal Limits Breast: Yes: Breast Exam Deferred Cardiology: Yes: Regular Rhythm, Regular Rate Abdominal: Yes: Normal Bowel Sounds, Non Tender, Flat, Soft Genitourinary: Yes: Within Normal Limits Back: Yes: Normal Inspection Musculoskeletal: Yes: full range of Motion, Gait Steady, Pelvis Stable Extremities: Yes: Normal Capillary Refill, Normal Inspection, Normal Range of Motion, Non-Tender Neurological: Yes: gun fitter II-XII NML intact, Fully Oriented, Alert, Motor Strength 5/5, Depressed Affect Integumentary: Yes: Normal Color, Dry, Warm Lymphatic: Yes: Within Normal Limits - Diagnostic (1) Alcohol dependence with uncomplicated withdrawal Current Visit: Yes Status: Acute (2) Cannabis dependence Current Visit: Yes Status: Acute (3) Opioid dependence on agonist therapy Current Visit: Yes Status: Chronic Comment: MMTP: [facility] on methadone maintenance 30 mg, last medicated today. Dose pending verification. (4) Depression Current Visit: Yes Status: Suspected Qualifiers: Depression Type: unspecified Qualified Code(s): F32.9 - Major depressive disorder, single episode, unspecified (5) Nicotine dependence Current Visit: Yes Status: Chronic Qualifiers: Nicotine product type: cigarettes Substance use status: in withdrawal Qualified Code(s): F17.213 - Nicotine dependence, cigarettes, with withdrawal Cleared for Admission [facility] - Detox or Rehab [facility] Level of Care: Medically Managed Detox Regimen/Protocol: Librium [facility] Breath Alcohol Content Breath Alcohol Content: 0.169 Urine Drug Screen - Results Drug Screen Negative: No Urine Drug Screen Results: THC-Marijuana, OPI-Opiates, BZO-Benzodiazepines, MTD- Methadone, FEN-Fentanyl
[2018-08-24] MEDS ORDERED: MENTHOL/PHENOL 1 EACH UD MM PRN (20:43)
[2018-08-24] MEDS ORDERED: LOPERAMIDE HCL 2 MG CAPSULE PO PRN (20:43)
[2018-08-24] MEDS ORDERED: IBUPROFEN 400 MG TABLET (FP) PO PRN (20:43)
[2018-08-24] MEDS ORDERED: chlordiazePOXIDE HCL 25 MG CAPSULE PO PRN (20:43)
[2018-08-24] MEDS ORDERED: ACETAMINOPHEN 325 MG TABLET (FP) PO PRN (20:43)
[2018-08-24] MEDS ORDERED: MAG HYDROX/AL HYDROX/SIMETH 30 ML UNIT-DOSE CUP PO PRN (20:43)
[2018-08-24] MEDS ORDERED: P-EPHED 60MG/TRIPROLIDI 2.5MG TABLET PO PRN (20:43)
[2018-08-24] MEDS ORDERED: MAGNESIUM CITRATE 300 ML BOTTLE PO PRN (20:43)
[2018-08-24] MEDS ORDERED: MAGNESIUM HYDROX 2400MG/30ML ORAL SUSPENSION 30 ML CUP PO PRN (20:43)
[2018-08-24] MEDS ORDERED: guaiFENesin/D-METHORPHAN HB 10 ML UNIT-DOSE CUPS PO PRN (20:43)
[2018-08-24] MEDS ORDERED: NICOTINE POLACRILEX 2 MG GUM BUC PRN (20:43)
[2018-08-24] MEDS ORDERED: hydrOXYzine PAMOATE 50 MG CAPSULE (FP) PO PRN (20:43)
[2018-08-24] MEDS ORDERED: MELATONIN 5 MG TABLETS PO PRN (22:00)
[2018-08-24] MEDS: THIAMINE HCL 100 MG TABLET (FP) PO SCH (23:58)
[2018-08-24] MEDS: chlordiazePOXIDE HCL 25 MG CAPSULE PO SCH (23:59)
[2018-08-25] MEDS: chlordiazePOXIDE HCL 25 MG CAPSULE PO SCH ×4 (06:14→22:10)
[2018-08-25] MEDS: METHADONE HCL 10 MG TABLET PO SCH (09:56)
[2018-08-25] MEDS: PRENATAL VITAMINS W/ FOLIC ACID TABLET (FP) PO SCH (09:57)
[2018-08-25] MEDS ORDERED: PATIENT'S OWN MEDICATION (NON-FORMULARY) (Glecaprevir/Pibrentasvir [Mavyret 100-40 Mg Tabl PO SCH ×2 (10:00→17:00)
[2018-08-25 10:35] LABS: HEMATOCRIT 39.8 % (35.4-49); HEMOGLOBIN 12.6 GM/dL (11.7-16.9); MCH 29.4 pg (25.7-33.7); MCHC 31.6 g/dl (32.0-35.9); MEAN PLT VOLUME 9.3 fl (7.5-11.1); PLATELET COUNT 161 K/MM3 (134-434); RBC 4.29 M/mm3 (4.00-5.60); RDW 14.9 % (11.9-15.9); WHITE BLOOD COUNT 4.4 K/mm3 (4.0-10.0)
--- NOTE | 2018-08-25 10:39 | PN ---
S CIWA - CIWA Score Nausea/Vomitin Muscle Tremors: 2 Anxiety: 3 Agitation: 3 Paroxysmal Sweats: 1-Minimal Palms Moist Orientation: 0-Oriented Tacttile Disturbances: 0-None Auditory Disturbances: 0-None Visual Disturbances: 0-None Headache: 0-None Present CIWA-Ar Total Score: 11 BHS Progress Note (SOAP) Subjective: PATIENT C/O ANXIOUS/RESTLESS, NAUSEA/DIARRHEA AND SHAKES. Objective: 08/25/18 10:37 Vital Signs Temperature 96.7 F L 08/25/18 09:05 Pulse Rate 72 08/25/18 09:05 Respiratory Rate 18 08/25/18 09:05 Blood Pressure 129/89 08/25/18 09:05 O2 Sat by Pulse Oximetry (%) Laboratory Tests 08/25/18 07:00 WBC 4.4 RBC 4.29 Hgb 12.6 Hct 39.8 MCV 93.0 MCH 29.4 MCHC 31.6 L RDW 14.9 Plt Count 161 D MPV 9.3 PE: SKIN : +FLUSHING, WARM AND DRY CAR S1S2 RESP CTA BL EXT +TREMORS ALERT AND ORIENTED +ANXIOUS/RESTLESS Assessment: 08/25/18 10:39 WITHDRAWAL SYNDROME Plan: CONTINUE DETOX ENCOURAGE ORAL FLUIDS CONTINUE TO MONITOR CLINICALLY
--- NOTE | 2018-08-25 10:48 | EKG ---
Test Reason : Blood Pressure : / mmHG Vent. Rate : 075 BPM Atrial Rate : 075 BPM P-R Int : 146 ms QRS Dur : 088 ms QT Int : 376 ms P-R-T Axes : 057 036 023 degrees QTc Int : 419 ms NORMAL SINUS RHYTHM NORMAL ECG WHEN COMPARED WITH ECG OF 28-JUN-2018 22:34, NO SIGNIFICANT CHANGE WAS FOUND Confirmed by ANA CHACON MD ([id number]) on 08/25/2018 10:48:03 AM Referred By: Confirmed By:ANA CHACON MD
[2018-08-25 11:01] LABS: ALBUMIN 3.4 g/dl (3.4-5.0); ALK PHOS 99 U/L (45-117); ANION GAP 6 MMOL/L (8-16); BILIRUBIN,TOTAL 0.6 mg/dL (0.2-1); BLOOD UREA NITROGEN 14 mg/dL (7-18); CHLORIDE 103 mmol/L (98-107); CO2 31 mmol/L (21-32); CREATININE 0.6 mg/dL (0.55-1.3); GLUCOSE,RANDOM 87 mg/dL (74-106); POTASSIUM 4.2 mmol/L (3.5-5.1); SGOT/AST 86 U/L (15-37); SGPT/ALT 113 U/L (13-61); SODIUM 140 mmol/L (136-145); TOT PROT 6.8 g/dl (6.4-8.2)
[2018-08-25] MEDS: NICOTINE 14 MG/24 HOURS TOPICAL PATCH TD SCH (11:20)
--- NOTE | 2018-08-25 15:56 | PN ---
[facility] Progress Note Note: PATIENT CALLED HEPATITIS C PROVIDER DR. ADRIANA FRASER AT [facility] [phone]. HEPATITIS C RECORDS REQUESTED BY PATIENT TO BE FAXED TO [facility] REGARDING TREATMENT. PATIENT HAS OWN MEDICATION AND SENT TO PHARMACY FOR CONFIRMATION. MEDICATION TIMING CHANGED TO 5PM AND TO BE GIVEN 1 PACKAGE (3 TABLETS) DAILY AND ORDERED.
[2018-08-25] MEDS: PATIENT'S OWN MEDICATION (NON-FORMULARY) (Glecaprevir/Pibrentasvir [Mavyret 100-40 Mg Tabl PO SCH (17:04)
--- NOTE | 2018-08-25 19:08 | CONSULT ---
[facility] Psychiatric Consult - Data Date of interview: 08/25/18 Admission source: [facility] Identifying data: Re-admission to [facility] for this 53 y/o male seeking detoxification treatment on for opioid,cannabis and alcohol dependence.Patient is ,a father of three (claimed six dependents at a previous interview),homeless,unemployed and supported on SSI benefits. Substance Abuse History: Confirmed by the patient in this interview : Smoking history: Current every day smoker. Have you smoked in the past 12 months: Yes. Aproximately how many cigarettes per day: 5. Hx Chewing Tobacco Use: No. Initiated information on smoking cessation: Yes. 'Breaking Loose' booklet given : 08/24/18. - Substance & Tx. History. Hx Alcohol Use: Yes. Substance Use Type: Alcohol. Hx Substance Use Treatment: Yes (Last detox [facility] 06/28/18 - ). - Substances Abused. Alcohol. Route: Oral. Frequency: Daily. Amount used: 2 pints. Age of first use: 7. Date of Last Use: 08/24/18 Medical History: Hepatitis C. Psychiatric History: History of multiple psychiatric hospitalizations.Onset of mental illness : early s. Known history of past admissions to [facility], [facility] and other facilities in [facility].Patient is diagnosed with Paranoid Schizophrenia.Mr Conde states that he received trials of various antipsychotic medications. Responds only to thorazine. Prescribed thorazine 100 mg po bid by his OPD psychiatrist whom he sees at the [facility] mental health clinic. He is also on methadone maintenance (30 mg/day) at [facility] in [facility] ([facility] In this interview, the patient reveals a history of one suicide attempt, eight years ago, via overdose with pills. Physical/Sexual Abuse/Trauma History: Patient denies. Additional Comment: Urine Drug Screen Results: THC-Marijuana, OPI-Opiates, BZO- Benzodiazepines, MTD-Methadone, FEN-Fentanyl.Noted. Mental Status Exam - Mental Status Exam Alert and Oriented to: Time, Place, Person Cognitive Function: Good Patient Appearance: Well Groomed Mood: Nervous, Withdrawn Affect: Mood Congruent Patient Behavior: Fatigued, Cooperative Speech Pattern: Clear, Appropriate Voice Loudness: Normal Thought Process: Goal Oriented Thought Disorder: Not Present Hallucinations: Denies Suicidal Ideation: Denies Homicidal Ideation: Denies Insight/Judgement: Poor Sleep: Poorly, Difficulty falling asleep Appetite: Good Muscle strength/Tone: Normal Gait/Station: Normal Psychiatric Findings - Problem List ([place] 1, 2,3) (1) Opioid dependence on agonist therapy Current Visit: Yes Status: Acute Comment: MMTP: HELP on methadone maintenance 30 mg, last medicated today. Dose pending verification. (2) Alcohol dependence with uncomplicated withdrawal Current Visit: Yes Status: Acute (3) Cannabis dependence Current Visit: Yes Status: Acute (4) Nicotine dependence Current Visit: Yes Status: Acute Qualifiers: Nicotine product type: cigarettes Substance use status: in withdrawal Qualified Code(s): F17.213 - Nicotine dependence, cigarettes, with withdrawal (5) Schizophrenia Current Visit: No Status: Chronic Qualifiers: Schizophrenia type: unspecified Qualified Code(s): F20.9 - Schizophrenia, unspecified Comment: As per self-report and existing records. (6) Substance induced mood disorder Current Visit: Yes Status: Acute (7) Insomnia Current Visit: Yes Status: Acute Qualifiers: Insomnia type: drug-induced Qualified Code(s): F19.982 - Other psychoactive substance use, unspecified with psychoactive substance-induced sleep disorder - Initial Treatment Plan Initial Treatment Plan: Psychoeducation. Sleep hygiene. Detoxification in progress. Thorazine is held in view of bradycardia. Will follow.
[2018-08-25 20:43] LABS: URINE APPEARANCE CLEAR; URINE BILIRUBIN NEGATIVE (<2.0 mg/dL); URINE COLOR DKYELLOW; URINE GLUCOSE (UA) NEGATIVE (NEGATIVE); URINE KETONE NEGATIVE (NEGATIVE); URINE LEUK ESTERASE TRACE (NEGATIVE); URINE NITRITE NEGATIVE (NEGATIVE); URINE PROTEIN 1+ (NEGATIVE); URINE UROBILINOGEN 4.0 E.U/dl mg/dL (0.2-1.0)
[2018-08-25 20:49] LABS: CALCIUM OXALATE CRYSTALS FEW /hpf (NONE SEEN); EPI CELLS RARE /HPF (FEW); URINE HYALINE CAST 4 /lpf; URINE MUCUS RARE
[2018-08-25] MEDS ORDERED: cloNIDine HCL 0.1 MG TABLET PO ONE (21:24)
--- NOTE | 2018-08-25 21:24 | PN ---
S Progress Note Note: reports BP by Amelia BRISCOE 145/95 and 159/101 asymptomatic one time dose clonidine 0.1 mg increase PO fluids continue detox continue to monitor
[2018-08-25] MEDS: THIAMINE HCL 100 MG TABLET (FP) PO SCH (22:10)
[2018-08-26] MEDS: METHADONE HCL 10 MG TABLET PO SCH (05:16)
[2018-08-26] MEDS: chlordiazePOXIDE HCL 25 MG CAPSULE PO SCH ×3 (05:16→16:53)
[2018-08-26] MEDS: PRENATAL VITAMINS W/ FOLIC ACID TABLET (FP) PO SCH (10:10)
[2018-08-26] MEDS: NICOTINE 14 MG/24 HOURS TOPICAL PATCH TD SCH (10:10)
--- NOTE | 2018-08-26 11:05 | PN ---
[facility] CIWA - CIWA Score Nausea/Vomitin-No Nausea/No Vomiting Muscle Tremors: 1-None Visible, but [place] Anxiety: 2 Agitation: 2 Paroxysmal Sweats: No Perspiration Orientation: 0-Oriented Tacttile Disturbances: 0-None Auditory Disturbances: 0-None Visual Disturbances: 0-None Headache: 0-None Present CIWA-Ar Total Score: 5 BHS Progress Note (SOAP) Subjective: PATIENT C/O FEELING ANXIOUS, RESTLESS AT TIMES. Objective: 08/26/18 11:03 Laboratory Tests 08/24/18 08/25/18 08/25/18 15:15 07:00 07:00 WBC 4.4 RBC 4.29 Hgb 12.6 Hct 39.8 MCV 93.0 MCH 29.4 MCHC 31.6 L RDW 14.9 Plt Count 161 D MPV 9.3 Sodium 140 Potassium 4.2 Chloride 103 Carbon Dioxide 31 Anion Gap 6 L BUN 14 Creatinine 0.6 Creat Clearance w eGFR > 60 Random Glucose 87 Calcium 9.0 Total Bilirubin 0.6 AST 86 H ALT 113 H Alkaline Phosphatase 99 Total Protein 6.8 Albumin 3.4 Urine Color Dkyellow Urine Appearance Clear Urine pH 6.0 Ur Specific [place] 1.014 Urine Protein 1+ H Urine Glucose (UA) Negative Urine Ketones Negative Urine Blood Negative Urine Nitrite Negative Urine Bilirubin Negative Urine Urobilinogen 4.0 e.u/dl Ur Leukocyte Esterase Trace Urine WBC (Auto) 1 Urine RBC (Auto) 1 Ur Epithelial Cells Rare Calcium Oxalate Crystal Few Hyaline Casts 4 Urine Mucus Rare RPR Titer 08/25/18 07:00 WBC RBC Hgb Hct MCV MCH MCHC RDW Plt Count MPV Sodium Potassium Chloride Carbon Dioxide Anion Gap BUN Creatinine Creat Clearance w eGFR Random Glucose Calcium Total Bilirubin AST ALT Alkaline Phosphatase Total Protein Albumin Urine Color Urine Appearance Urine pH Ur Specific [place] Urine Protein Urine Glucose (UA) Urine Ketones Urine Blood Urine Nitrite Urine Bilirubin Urine Urobilinogen Ur Leukocyte Esterase Urine WBC (Auto) Urine RBC (Auto) Ur Epithelial Cells Calcium Oxalate Crystal Hyaline Casts Urine Mucus RPR Titer Nonreactive Vital Signs Temperature 98.5 F 08/26/18 09:30 Pulse Rate 83 08/26/18 09:30 Respiratory Rate 16 08/26/18 09:30 Blood Pressure 127/87 08/26/18 09:30 O2 Sat by Pulse Oximetry (%) ALERT AND ORIENTED X 3 SKIN WARM AND DRY AMB AD REJI PACING IN [place] EXT FULL ROM Assessment: 08/26/18 11:04 WITHDRAWAL SYNDROME Plan: CONTINUE DETOX ORDERED ENCOURAGE ORAL FLUIDS CONTINUE TO MONITOR CLINICALLY
[2018-08-26] MEDS: PATIENT'S OWN MEDICATION (NON-FORMULARY) (Glecaprevir/Pibrentasvir [Mavyret 100-40 Mg Tabl PO SCH (16:53)
[2018-08-26] MEDS: THIAMINE HCL 100 MG TABLET (FP) PO SCH (22:46)
[2018-08-26] MEDS: chlordiazePOXIDE 5 MG CAPSULE PO SCH (22:46)
[2018-08-27] MEDS: chlordiazePOXIDE 5 MG CAPSULE PO SCH ×3 (06:39→17:25)
[2018-08-27] MEDS: METHADONE HCL 10 MG TABLET PO SCH (06:56)
[2018-08-27] MEDS: PRENATAL VITAMINS W/ FOLIC ACID TABLET (FP) PO SCH (10:22)
[2018-08-27] MEDS: NICOTINE 14 MG/24 HOURS TOPICAL PATCH TD SCH (10:23)
--- NOTE | 2018-08-27 11:29 | PN ---
[facility] Progress Note Note: PATIENT CONTINUES WITH DETOX REGIMEN. STATES HE FEELS WELL. C/O MILD ANXIETY. Laboratory Tests 08/24/18 08/25/18 08/25/18 15:15 07:00 07:00 WBC 4.4 RBC 4.29 Hgb 12.6 Hct 39.8 MCV 93.0 MCH 29.4 MCHC 31.6 L RDW 14.9 Plt Count 161 D MPV 9.3 Sodium 140 Potassium 4.2 Chloride 103 Carbon Dioxide 31 Anion Gap 6 L BUN 14 Creatinine 0.6 Creat Clearance w eGFR > 60 Random Glucose 87 Calcium 9.0 Total Bilirubin 0.6 AST 86 H ALT 113 H Alkaline Phosphatase 99 Total Protein 6.8 Albumin 3.4 Urine Color Dkyellow Urine Appearance Clear Urine pH 6.0 Ur Specific [place] 1.014 Urine Protein 1+ H Urine Glucose (UA) Negative Urine Ketones Negative Urine Blood Negative Urine Nitrite Negative Urine Bilirubin Negative Urine Urobilinogen 4.0 e.u/dl Ur Leukocyte Esterase Trace Urine WBC (Auto) 1 Urine RBC (Auto) 1 Ur Epithelial Cells Rare Calcium Oxalate Crystal Few Hyaline Casts 4 Urine Mucus Rare RPR Titer 08/25/18 07:00 WBC RBC Hgb Hct MCV MCH MCHC RDW Plt Count MPV Sodium Potassium Chloride Carbon Dioxide Anion Gap BUN Creatinine Creat Clearance w eGFR Random Glucose Calcium Total Bilirubin AST ALT Alkaline Phosphatase Total Protein Albumin Urine Color Urine Appearance Urine pH Ur Specific [place] Urine Protein Urine Glucose (UA) Urine Ketones Urine Blood Urine Nitrite Urine Bilirubin Urine Urobilinogen Ur Leukocyte Esterase Urine WBC (Auto) Urine RBC (Auto) Ur Epithelial Cells Calcium Oxalate Crystal Hyaline Casts Urine Mucus RPR Titer Nonreactive PE SKIN WARM AND DRY ALERT AND ORIENTED X 3 AMB AD REJI EXT FULL ROM A/P WITHDRAWAL SYNDROME CONTINUE DETOX ORDERED FOR D/C IN AM TO FOLLOW UP WITH [facility] AFTER DISCHARGE PATIENT ENCOURAGE TO FOLLOW UP WITH PCP AND HEP C CLINIC WITHIN ONE WEEK POST D/ C FOR ONGOING TREATMENT AND FOLLOW UP CONTINUE TO MONITOR
[2018-08-27] MEDS: PATIENT'S OWN MEDICATION (NON-FORMULARY) (Glecaprevir/Pibrentasvir [Mavyret 100-40 Mg Tabl PO SCH (17:26)
[2018-08-27] MEDS: chlordiazePOXIDE HCL 10 MG CAPSULE PO SCH (22:27)
[2018-08-27] MEDS: THIAMINE HCL 100 MG TABLET (FP) PO SCH (22:27)
[2018-08-28] MEDS: chlordiazePOXIDE HCL 10 MG CAPSULE PO SCH (05:46)
[2018-08-28] MEDS: METHADONE HCL 10 MG TABLET PO SCH (05:46)
[2018-08-28 06:27] VITALS: BP 130/88; PULSE 64; TEMP 97.1
--- NOTE | 2018-08-28 11:17 | DS ---
[facility] Detox Discharge Summary Admission Date: 08/24/18 Discharge Date: 08/28/18 - History Present History: Alcohol Dependence - Physical Exam Results Vital Signs: Vital Signs Temperature 97.1 F L 08/28/18 06:26 Pulse Rate 64 08/28/18 06:26 Respiratory Rate 18 08/28/18 06:26 Blood Pressure 130/88 08/28/18 06:26 O2 Sat by Pulse Oximetry (%) Pertinent Admission Physical Exam Findings: PATIENT TOLERATED DETOX WITHOUT ADVERSE EVENT. PATIENT MEDICALLY STABLE AND DENIES SI/HI. PATIENT TO FOLLOW UP WITH METH[facility]ONE [facility] TODAY. ENCOURAGED TO FOLLOW UP WITH [facility] WITHIN3 DAYS OF DISCHARGE AND TO ATTEND GROUP MEETINGS TO PREVENT RELAPSE. PATIENT EDUCATED TO SEEK MEDICAL ATTENTION IF WITHDRAWAL SYMPTOMS OCCUR. - Treatment Hospital Course: Detox Protocol Followed, Detoxed Safely, Responded well, Discharged Condition Good, Rehab Referral Accepted Patient has Accepted a Rehab Referral to: [facility] - Medication Discharge Medications: Ambulatory Orders Glecaprevir/Pibrentasvir [Mavyret 100-40 mg Tablet] 1 each PO DAILY 08/24/18 - Diagnosis (1) Alcohol dependence with uncomplicated withdrawal Status: Resolved - AMA Did Patient Leave Against Medical Advice: No
== END 2018-08-28 06:50 | disposition home or self-care (01) | DRG 773 ==
LOC: YASAS 17:12 → Y3N 21:21
PROC: HZ2ZZZZ Detoxification Services for Substance Abuse Treatment (ICD-10-PCS; principal; 2018-08-24)
DX: F10.230 Alcohol dependence with withdrawal, uncomplicated (principal); F12.20 Cannabis dependence, uncomplicated; F11.20 Opioid dependence, uncomplicated; F17.210 Nicotine dependence, cigarettes, uncomplicated; F20.9 Schizophrenia, unspecified; F19.24 Other psychoactive substance dependence with psychoactive substance-induced mood disorder; F19.282 Other psychoactive substance dependence with psychoactive substance-induced sleep disorder; F32.9 Major depressive disorder, single episode, unspecified; B18.2 Chronic viral hepatitis C; Z91.5 Personal history of self-harm
CPT/HCPCS: 36415; 80053; 81003; 81015; 85027; 86593; 93005; 93010

== ENCOUNTER 2019-06-15 11:15 | Inpatient (IN) | payer OTHER ==
[2019-06-15 13:19] VITALS: BMI 25.2
--- NOTE | 2019-06-15 14:47 | HP ---
CIWA Score Nausea/Vomitin Muscle Tremors: 3 Anxiety: 3 Agitation: 3 Paroxysmal Sweats: 1-Minimal Palms Moist Orientation: 0-Oriented Tacttile Disturbances: 1-Very Mild Itch/Numbness Auditory Disturbances: 0-None Visual Disturbances: 0-None Headache: 2-Mild CIWA-Ar Total Score: 15 - Admission Criteria OASAS Guidelines: Admission for Medically Managed Detox: Requires at least one of the followin. CIWA greater than 12 2. Seizures within the past 24 hours 3. Delirium tremens within the past 24 hours 4. Hallucinations within the past 24 hours 5. Acute intervention needed for co occurring medical disorder 6. Acute intervention needed for co occurring psychiatric disorder 7. Severe withdrawal that cannot be handled at a lower level of care (continued vomiting, continued diarrhea, abnormal vital signs) requiring intravenous medication and/or fluids 8. Admission ROS S - HPI Chief Complaint: i need help to stop drinking alcohol Allergies/Adverse Reactions: Allergies Allergy/AdvReac Type Severity Reaction Status Date / Time fish derived [Fish derived] Allergy Intermediate Swelling Verified 06/15/19 13: 13 iodine [Iodine] Allergy Intermediate Verified 06/15/19 13:13 UNCODED ALLERGY SELECTION Allergy Intermediate SWELLING--D Verified 06/15/19 13: 13 YE History of Present Illness: this 54 years old male with alcohol dependence,seeking detox,withdrawal symptom, last detox 08/24/18 to 08/28/18 multiple admissions but keep relapsing syncope denied seizure hepatitis c treated nicotine dependence 5 cigarettes,does not want nicotine replacement longest sobriety 7 years anxiety,depression,insomnia heroin abused Exam Limitations: No Limitations - Ebola screening Have you traveled outside of the country in the last 21 days: No Have you had contact with anyone from an Ebola affected area: No Do you have a fever: No - Review of Systems Constitutional: Loss of Appetite, Malaise, Night Sweats, Changes in sleep, Weakness, Unintentional Wgt. Loss EENT: reports: Tearing, Nose Congestion Respiratory: reports: No Symptoms reported Cardiac: reports: No Symptoms Reported GI: reports: Nausea, Poor Appetite, Vomiting, Abdominal cramping : reports: No Symptoms Reported Musculoskeletal: reports: Back Pain, Joint Pain, Muscle Pain Integumentary: reports: Dryness Neuro: reports: Headache, Tremors Endocrine: reports: No Symptoms Reported Hematology: reports: No Symptoms Reported Psychiatric: reports: No Sypmtoms Reported, Judgement Intact, Mood/Affect Appropiate, Orientated x3, Anxious, Depressed, other (insomnia) Other Systems: Reviewed and Negative Patient History - Patient Medical History Hx Anemia: No Hx Asthma: No Hx Chronic Obstructive Pulmonary Disease (COPD): No Hx Cancer: No Hx Cardiac Disorders: No Hx Congestive Heart Failure: No Hx Hypertension: No Hx Hypercholesterolemia: No Hx Pacemaker: No HX Cerebrovascular Accident: No Hx Seizures: No Hx Dementia: No Hx Diabetes: No Hx Gastrointestinal Disorders: No Hx Liver Disease: No Hx Genitourinary Disorders: No Hx Sexually Transmitted Disorders: No Hx Renal Disease (ESRD): No Hx Thyroid Disease: No Hx Human Immunodeficiency Virus (HIV): No (last 05/27 negative) Hx Hepatitis C: Yes (treatment) Hx Depression: Yes (ON MEDS) Hx Suicide Attempt: Yes (Suicide attempt in 1993. Denies suicidal ideation at this time) Hx Bipolar Disorder: Yes Hx Schizophrenia: No Other Medical History: no suicidal,no homicidal - Patient Surgical History Past Surgical History: No Hx Neurologic Surgery: No Hx Cataract Extraction: No Hx Cardiac Surgery: No Hx Lung Surgery: No Hx Breast Surgery: No Hx Breast Biopsy: No Hx Abdominal Surgery: No Hx Appendectomy: No Hx Cholecystectomy: No Hx Genitourinary Surgery: No Hx Section: No Hx Orthopedic Surgery: No Anesthesia Reaction: No - PPD History Previous Implant?: Yes Documented Results: Negative w/proof Implanted On Prior [facility] Admission?: Yes Date: 02/03/18 Results: 0MM PPD to be Administered?: No - Smoking Cessation Smoking history: Current every day smoker Have you smoked in the past 12 months: Yes Aproximately how many cigarettes per day: 5 Hx Chewing Tobacco Use: No Initiated information on smoking cessation: Yes 'Breaking Loose' booklet given: 06/15/19 - Substance & Tx. History Hx Alcohol Use: Yes Hx Substance Use: No Substance Use Type: Alcohol Hx Substance Use Treatment: Yes ([facility] to 08/28/18) - Substances abused Alcohol Substance route: Oral Frequency: Daily Amount used: 2pints of vodka/day Age of first use: 10 Date of last use: 06/15/19 Heroin Substance route: Inhalation Frequency: 1-3 times last 30 days Amount used: 1 bag Age of first use: 16 Date of last use: 06/13/19 Marijuana/Hashish Substance route: Smoking Frequency: 1-3 times last 30 days Amount used: 10$ Age of first use: 13 Date of last use: 06/09/19 Family Disease History - Family Disease History Family Disease History: Diabetes: Grandparent (GF-), [place]: Father (COLON- ), Other: Mother (AIDS-) Admission Physical Exam [facility] - Vital Signs Vital Signs: Vital Signs - 24 hr 06/15/19 12:58 Temperature 97.5 F L Pulse Rate 69 Respiratory 18 Rate Blood Pressure 131/90 - Physical General Appearance: Yes: Moderate Distress, Tremorous, Irritable, Sweating, Anxious HEENTM: Yes: Normal ENT Inspection, [place], Pharynx Normal Respiratory: Yes: Lungs Clear, Normal Breath Sounds, No Respiratory Distress Neck: Yes: Within Normal Limits, Supple, Trachea in good position Breast: Yes: Within Normal Limits Cardiology: Yes: Within Normal Limits, Regular Rhythm, Regular Rate, S1, S2 Abdominal: Yes: Within Normal Limits, Normal Bowel Sounds, Non Tender, Flat, Soft Genitourinary: Yes: Within Normal Limits Back: Yes: Muscle Spasm Musculoskeletal: Yes: Back pain, Muscle Pain Extremities: Yes: Tremors Neurological: Yes: Within Normal Limits, Alert, Motor Strength 5/5 Integumentary: Yes: Dry Lymphatic: Yes: Within Normal Limits - Diagnostic (1) Alcohol dependence with uncomplicated withdrawal Current Visit: No Status: Resolved (2) Nicotine dependence Current Visit: No Status: Acute Qualifiers: Nicotine product type: cigarettes Substance use status: in withdrawal Qualified Code(s): F17.213 - Nicotine dependence, cigarettes, with withdrawal (3) Methadone maintenance therapy patient Current Visit: No Status: Chronic Comment: HELP (4) Bipolar disorder Current Visit: Yes Status: Acute Cleared for Admission [facility] - Detox or Rehab [facility] Level of Care: Medically Managed Detox Regimen/Protocol: Librium Breathalyzer - Breathalyzer Breathalyzer: 0.085 Urine Drug Screen - Test Device Lot number: [id number] Expiration date: 03/08/21 - Control Is test valid?: Yes - Results Drug screen NEGATIVE: No Urine drug screen results: THC-Marijuana, FEN-Fentanyl, MOP-Opiates, MTD- Methadone Inpatient Rehab Admission - Rehab Decision to Admit Inpatient rehab admission?: No
[2019-06-15] MEDS ORDERED: BISMUTH SUBSALICYLATE 262 MG/15 ML BTL PO PRN (14:57)
[2019-06-15] MEDS ORDERED: MAGNESIUM CITRATE 300 ML BOTTLE PO PRN (14:57)
[2019-06-15] MEDS ORDERED: METHOCARBAMOL 500 MG TABLET PO PRN (14:57)
[2019-06-15] MEDS ORDERED: IBUPROFEN 400 MG TABLET (FP) PO PRN (14:57)
[2019-06-15] MEDS ORDERED: MENTHOL/PHENOL 1 EACH UD MM PRN (14:57)
[2019-06-15] MEDS ORDERED: MAG HYDROX/AL HYDROX/SIMETH 30 ML UNIT-DOSE CUP PO PRN (14:57)
[2019-06-15] MEDS ORDERED: MAGNESIUM HYDROX 2400MG/30ML ORAL SUSPENSION 30 ML CUP PO PRN (14:57)
[2019-06-15] MEDS ORDERED: ACETAMINOPHEN 325 MG TABLET (FP) PO PRN ×2 (14:57)
[2019-06-15] MEDS ORDERED: hydrOXYzine HCL 25 MG TABLET (FP) PO PRN (14:57)
[2019-06-15] MEDS ORDERED: chlordiazePOXIDE HCL 25 MG CAPSULE PO PRN (14:57)
[2019-06-15 16:41] LABS: HEMATOCRIT 39.2 % (35.4-49); HEMOGLOBIN 12.9 GM/dL (11.7-16.9); MCH 30.7 pg (25.7-33.7); MCHC 32.8 g/dl (32.0-35.9); MEAN CELL VOLUME 93.6 fl (80-96); MEAN PLT VOLUME 9.1 fl (7.5-11.1); PLATELET COUNT 181 K/MM3 (134-434); RBC 4.19 M/mm3 (4.00-5.60); RDW 14.4 % (11.9-15.9); WHITE BLOOD COUNT 5.8 K/mm3 (4.0-10.0)
[2019-06-15 16:54] LABS: BILIRUBIN,TOTAL 0.5 mg/dL (0.2-1); BLOOD UREA NITROGEN 10.1 mg/dL (7-18); CALCIUM 9.2 mg/dL (8.5-10.1); CREATININE 0.7 mg/dL (0.55-1.3); POTASSIUM 4.1 mmol/L (3.5-5.1); TOT PROT 7.7 g/dl (6.4-8.2)
[2019-06-15] MEDS: chlordiazePOXIDE HCL 25 MG CAPSULE PO SCH ×2 (17:09→22:22)
[2019-06-15] MEDS: THIAMINE HCL 100 MG TABLET (FP) PO SCH (22:22)
[2019-06-15] MEDS: MELATONIN 5 MG TABLETS PO PRN (22:22)
[2019-06-16] MEDS: chlordiazePOXIDE HCL 25 MG CAPSULE PO SCH ×4 (06:07→22:42)
--- NOTE | 2019-06-16 08:59 | CONSULT ---
[facility] Psychiatric Consult - Data Date of interview: 06/16/19 Admission source: [facility] Identifying data: Patient is a 54 year old single male, father of two, unemployed, homeless, and is supported by SSI Benefits. This is one of multiple admissions for patient. Patient admitted to for alcohol dependence. Substance Abuse History: Smoking Cessation. Smoking history: Current every day smoker. Have you smoked in the past 12 months: Yes. Aproximately how many cigarettes per day: 5. Hx Chewing Tobacco Use: No. Initiated information on smoking cessation: Yes. 'Breaking Loose' booklet given: 06/15/19. - Substance & Tx. History. Hx Alcohol Use: Yes. Hx Substance Use: No. Substance Use Type : Alcohol. Hx Substance Use Treatment: Yes ([facility] to 08/28/18). - Substances abused. Alcohol. Substance route: Oral. Frequency: Daily. Amount used: 2pints of vodka/day. Age of first use: 10. Date of last use: 05/27. Heroin. Substance route: Inhalation. Frequency: 1-3 times last 30 days. Amount used: 1 bag. Age of first use: 16. Date of last use: 06/13/19. Marijuana/Hashish. Substance route: Smoking. Frequency: 1-3 times last 30 days. Amount used: 10$. Age of first use: 13. Date of last use: 06/09/19 Medical History: Hep C (treated) Psychiatric History: Patient's first psychiatric contact was approximately twenty years ago at an inpatient psychiatric unit in [place] after a suicide attempt. Patient reports h/o multiple psychiatric hospitalizations, most recently three months ago [facility], [place], operated by [facility] after attempting to jump off a bridge. Diagnosis of schizophrenia and bipolar disorder. He is also known to [facility] in [place] and [place]. Mr. Conde is currently provided with outpatient psychiatric care at [facility] and is prescribed thorazine 100mg BID + Klonopin 1mg PRN +Ambien 10mg. Reports history of auditory /visual hallucinations (last heard voices 4 months ago.) Patient denies thoughts or urges to hurt self others. Physical/Sexual Abuse/Trauma History: denies. Mental Status Exam - Mental Status Exam Alert and Oriented to: Time, Place, Person Cognitive Function: Good Patient Appearance: Well Groomed Mood: Euthymic Affect: Mood Congruent Patient Behavior: Cooperative Speech Pattern: Appropriate Voice Loudness: Normal Thought Process: Goal Oriented Thought Disorder: Not Present Hallucinations: Denies Suicidal Ideation: Denies Homicidal Ideation: Denies Insight/Judgement: Poor Sleep: Fair Appetite: Fair Muscle strength/Tone: Normal Gait/Station: Normal Psychiatric Findings - Problem List ([place] 1, 2,3) (1) Methadone maintenance therapy patient Current Visit: Yes Status: Chronic Comment: HELP (2) Alcohol dependence with uncomplicated withdrawal Current Visit: Yes Status: Acute (3) Schizophrenia Current Visit: Yes Status: Chronic Qualifiers: Schizophrenia type: unspecified Qualified Code(s): F20.9 - Schizophrenia, unspecified Comment: As per self-report and existing records. (4) Nicotine dependence Current Visit: Yes Status: Chronic Qualifiers: Nicotine product type: cigarettes Substance use status: in withdrawal Qualified Code(s): F17.213 - Nicotine dependence, cigarettes, with withdrawal - Initial Treatment Plan Initial Treatment Plan: Psychoeducation provided. Detoxification in progress. Will order Thorazine 50mg BID. Benefits and side effects discussed. Verbal consent given.
[2019-06-16] MEDS ORDERED: METHADONE HCL 40 MG DISPERSABLE TABLET PO ONE (09:15)
[2019-06-16] MEDS: PRENATAL VITAMINS W/ FOLIC ACID TABLET (FP) PO SCH (10:26)
[2019-06-16] MEDS: chlorproMAZINE HCL 25 MG TABLET PO SCH ×2 (11:00→22:43)
--- NOTE | 2019-06-16 16:06 | PN ---
[facility] CIWA - CIWA Score Nausea/Vomitin-No Nausea/No Vomiting Muscle Tremors: 3 Anxiety: 3 Agitation: 2 Paroxysmal Sweats: No Perspiration Orientation: 2-Disoriented Date<2 days Tacttile Disturbances: 1-Very Mild Itch/Numbness Auditory Disturbances: 0-None Visual Disturbances: 2-Mild Sensitivity Headache: 0-None Present CIWA-Ar Total Score: 13 S Progress Note (SOAP) Subjective: Anxious, Tremors, Fatigue. Objective: PATIENT A & O X 2 (UNCERTAIN ABOUT CURRENT DAY / DATE). IN NO ACUTE DISTRESS. PATIENT DENIES KNOWN HISTORY OF HTN. 06/16/19 16:06 Vital Signs Temperature 97.3 F L 06/16/19 13:32 Pulse Rate 73 06/16/19 13:32 Respiratory Rate 18 06/16/19 13:32 Blood Pressure 146/91 06/16/19 13:32 O2 Sat by Pulse Oximetry (%) Laboratory Tests 06/15/19 06/15/19 06/15/19 15:00 15:00 15:00 WBC 5.8 RBC 4.19 Hgb 12.9 Hct 39.2 MCV 93.6 MCH 30.7 MCHC 32.8 RDW 14.4 Plt Count 181 MPV 9.1 Sodium 143 Potassium 4.1 Chloride 105 Carbon Dioxide 29 Anion Gap 9 BUN 10.1 Creatinine 0.7 Est GFR (CKD-EPI)AfAm 122.27 Est GFR (CKD-EPI)NonAf 105.50 Random Glucose 78 Calcium 9.2 Total Bilirubin 0.5 AST 79 H ALT 101 H Alkaline Phosphatase 89 Total Protein 7.7 Albumin 4.0 RPR Titer Nonreactive LABS NOTED. PATIENT HAS HAD ELEVATED ALT AND AST LEVELS ON PREVIOUS ADMISSIONS. 06/16/19 16:07 Assessment: 06/16/19 16:07 WITHDRAWAL SYMPTOMS. ELEVATED BLOOD PRESSURE WITHOUT DIAGNOSIS OF HYPERTENSION. 06/16/19 16:09 Plan: CONTINUE DETOX. CONTINUE TO MONITOR BP.
[2019-06-16] MEDS: THIAMINE HCL 100 MG TABLET (FP) PO SCH (22:42)
[2019-06-17] MEDS: METHADONE HCL 40 MG DISPERSABLE TABLET PO SCH (06:44)
[2019-06-17] MEDS: chlordiazePOXIDE HCL 25 MG CAPSULE PO SCH ×4 (06:44→23:02)
[2019-06-17] MEDS: chlorproMAZINE HCL 25 MG TABLET PO SCH ×2 (10:07→23:01)
[2019-06-17] MEDS: PRENATAL VITAMINS W/ FOLIC ACID TABLET (FP) PO SCH (10:07)
--- NOTE | 2019-06-17 11:05 | PN ---
S CIWA - CIWA Score Nausea/Vomitin-No Nausea/No Vomiting Muscle Tremors: 1-None Visible, but [place] Anxiety: 2 Agitation: 3 Paroxysmal Sweats: No Perspiration Orientation: 0-Oriented Tacttile Disturbances: 0-None Auditory Disturbances: 0-None Visual Disturbances: 0-None Headache: 0-None Present CIWA-Ar Total Score: 6 S Progress Note (SOAP) Subjective: Patient seen ambulating with no apparent distress. Patient is restless and has no complaints at this time other than he wants dietary supplementation with ensure. However, he was taken off of supplement because he was being offensive to staff. Objective: 06/17/19 11:04 Vitals: BP: 149/79 P: 79/min R: 16/min T:98.1F Laboratory 06/15/19 06/15/19 06/15/19 15:00 15:00 15:00 WBC 5.8 K/mm3 K/mm3 (4.0-10.0) RBC 4.19 M/mm3 M/mm3 (4.00-5.60) Hgb 12.9 GM/dL GM/dL (11.7-16.9) Hct 39.2 % % (35.4-49) MCV 93.6 fl fl (80-96) MCH 30.7 pg pg (25.7-33.7) MCHC 32.8 g/dl g/dl (32.0-35.9) RDW 14.4 % % (11.9-15.9) Plt Count 181 K/MM3 K/MM3 (134-434) MPV 9.1 fl fl (7.5-11.1) Sodium 143 mmol/L mmol/L (136-145) Potassium 4.1 mmol/L mmol/L (3.5-5.1) Chloride 105 mmol/L mmol/L (98-107) Carbon Dioxide 29 mmol/L mmol/L (21-32) Anion Gap 9 MMOL/L MMOL/L (8-16) BUN 10.1 mg/dL mg/dL (7-18) Creatinine 0.7 mg/dL mg/dL (0.55-1.3) Est GFR (CKD-EPI)AfAm 122.27 Est GFR (CKD-EPI)NonAf 105.50 Random Glucose 78 mg/dL mg/dL (74-106) Calcium 9.2 mg/dL mg/dL (8.5-10.1) Total Bilirubin 0.5 mg/dL mg/dL (0.2-1) AST 79 U/L H U/L (15-37) ALT 101 U/L H U/L (13-61) Alkaline Phosphatase 89 U/L U/L (45-117) Total Protein 7.7 g/dl g/dl (6.4-8.2) Albumin 4.0 g/dl g/dl (3.4-5.0) RPR Titer Nonreactive (NONREACTIVE) Assessment: 06/17/19 11:05 1. Alcohol Withdrawal Bloodwork reviewed and no abnormalities noted. 06/17/19 11:06 Plan: Alcohol Withdrawals uncomplicated: Continue Detox. Dr. Evans
[2019-06-17] MEDS: THIAMINE HCL 100 MG TABLET (FP) PO SCH (23:02)
[2019-06-18] MEDS ORDERED: chlordiazePOXIDE HCL 10 MG CAPSULE PO PRN
[2019-06-18] MEDS: chlordiazePOXIDE HCL 10 MG CAPSULE PO SCH ×4 (06:26→23:17)
[2019-06-18] MEDS: METHADONE HCL 40 MG DISPERSABLE TABLET PO SCH (06:26)
[2019-06-18] MEDS: PRENATAL VITAMINS W/ FOLIC ACID TABLET (FP) PO SCH (10:51)
[2019-06-18] MEDS: chlorproMAZINE HCL 25 MG TABLET PO SCH ×2 (10:51→23:16)
--- NOTE | 2019-06-18 12:07 | PN ---
S CIWA - CIWA Score Nausea/Vomitin-No Nausea/No Vomiting Muscle Tremors: 3 Anxiety: 2 Agitation: 2 Paroxysmal Sweats: 1-Minimal Palms Moist Orientation: 0-Oriented Tacttile Disturbances: 0-None Auditory Disturbances: 0-None Visual Disturbances: 0-None Headache: 0-None Present CIWA-Ar Total Score: 8 BHS Progress Note (SOAP) Subjective: anxiety irritable Objective: 06/18/19 12:07 Vital Signs Temperature 98.1 F 06/18/19 09:25 Pulse Rate 93 H 06/18/19 09:25 Respiratory Rate 18 06/18/19 09:25 Blood Pressure 144/89 06/18/19 09:25 O2 Sat by Pulse Oximetry (%) aaox3 ambulating no acute distress Assessment: 06/18/19 12:07 withdrawal sx Plan: continue detox increase fluids
[2019-06-18 13:02] LABS: EPI CELLS 2.1 /HPF (0-5/HPF); HYALINE CASTS 11 /lpf (0-8); PH,URINE 5.5 (5.0-8.0); URINE APPEARANCE CLEAR; URINE BACTERIA 2.7 /hpf (NEGATIVE); URINE BILIRUBIN NEGATIVE (NEGATIVE); URINE COLOR YELLOW; URINE GLUCOSE (UA) NEGATIVE (NEGATIVE); URINE KETONE TRACE (NEGATIVE); URINE LEUK ESTERASE 1+ (NEGATIVE); URINE NITRITE NEGATIVE (NEGATIVE); URINE PROTEIN NEGATIVE (NEGATIVE); URINE RBC 2 /hpf (0-4); URINE WBC 5 /hpf (0-5)
[2019-06-18 13:40] LABS: URINE CRYSTALS CALCIUM OXALATE=1+ /hpf
[2019-06-18] MEDS: THIAMINE HCL 100 MG TABLET (FP) PO SCH (23:17)
[2019-06-19] MEDS: METHADONE HCL 40 MG DISPERSABLE TABLET PO SCH (06:08)
[2019-06-19] MEDS: chlordiazePOXIDE HCL 10 MG CAPSULE PO SCH ×2 (06:08→18:49)
[2019-06-19] MEDS: PRENATAL VITAMINS W/ FOLIC ACID TABLET (FP) PO SCH (11:03)
[2019-06-19] MEDS: chlorproMAZINE HCL 25 MG TABLET PO SCH ×2 (11:03→23:04)
--- NOTE | 2019-06-19 14:22 | PN ---
S CIWA - CIWA Score Nausea/Vomitin-No Nausea/No Vomiting Muscle Tremors: None Anxiety: 3 Agitation: 3 Paroxysmal Sweats: No Perspiration Orientation: 0-Oriented Tacttile Disturbances: 0-None Auditory Disturbances: 0-None Visual Disturbances: 0-None Headache: 0-None Present CIWA-Ar Total Score: 6 BHS Progress Note (SOAP) Subjective: Feels ok, medication working well Objective: 06/19/19 14:20 Last Vital Signs Temp Pulse Resp BP Pulse Ox 97.7 F 97 H 18 120/84 06/19/19 13:31 06/19/19 13:31 06/19/19 13:31 06/19/19 13:31 Laboratory Tests 06/15/19 06/15/19 06/15/19 15:00 15:00 15:00 WBC 5.8 RBC 4.19 Hgb 12.9 Hct 39.2 MCV 93.6 MCH 30.7 MCHC 32.8 RDW 14.4 Plt Count 181 MPV 9.1 Sodium 143 Potassium 4.1 Chloride 105 Carbon Dioxide 29 Anion Gap 9 BUN 10.1 Creatinine 0.7 Est GFR (CKD-EPI)AfAm 122.27 Est GFR (CKD-EPI)NonAf 105.50 Random Glucose 78 Calcium 9.2 Total Bilirubin 0.5 AST 79 H ALT 101 H Alkaline Phosphatase 89 Total Protein 7.7 Albumin 4.0 Urine Color Urine Appearance Urine pH Ur Specific [place] Urine Protein Urine Glucose (UA) Urine Ketones Urine Blood Urine Nitrite Urine Bilirubin Urine Urobilinogen Ur Leukocyte Esterase Urine WBC (Auto) Urine RBC (Auto) Urine Casts (Auto) U Epithel Cells (Auto) Urine Crystals (Auto) Urine Bacteria (Auto) RPR Titer Nonreactive 06/18/19 10:24 WBC RBC Hgb Hct MCV MCH MCHC RDW Plt Count MPV Sodium Potassium Chloride Carbon Dioxide Anion Gap BUN Creatinine Est GFR (CKD-EPI)AfAm Est GFR (CKD-EPI)NonAf Random Glucose Calcium Total Bilirubin AST ALT Alkaline Phosphatase Total Protein Albumin Urine Color Yellow Urine Appearance Clear Urine pH 5.5 Ur Specific [place] 1.024 Urine Protein Negative Urine Glucose (UA) Negative Urine Ketones Trace H Urine Blood Negative Urine Nitrite Negative Urine Bilirubin Negative Urine Urobilinogen 1.0 Ur Leukocyte Esterase 1+ H Urine WBC (Auto) 5 Urine RBC (Auto) 2 Urine Casts (Auto) 11 U Epithel Cells (Auto) 2.1 Urine Crystals (Auto) Calcium oxalate=1+ Urine Bacteria (Auto) 2.7 RPR Titer Labs reviewed: elevated LFTs most likely due to alcoholism; abnormal UA: encourage to drink more water Assessment: 06/19/19 14:21 Withdrawal sxs Plan: Continue detox Scheduled for discharge tomorrow Elevated LFTs: most likely r/t alcoholism, encouraged abstinence Abnormal UA: encouraged PO water hydration
[2019-06-19] MEDS ORDERED: COLLOIDAL OATMEAL 1 BAR EACH TP PRN (21:09)
[2019-06-19] MEDS: MELATONIN 5 MG TABLETS PO PRN (23:04)
[2019-06-19] MEDS: THIAMINE HCL 100 MG TABLET (FP) PO SCH (23:04)
[2019-06-20] MEDS ORDERED: chlordiazePOXIDE HCL 10 MG CAPSULE PO ONE (05:00)
[2019-06-20] MEDS: METHADONE HCL 40 MG DISPERSABLE TABLET PO SCH (06:05)
[2019-06-20 06:21] VITALS: BP 137/86; PULSE 57; TEMP 97.2
--- NOTE | 2019-06-20 16:41 | DS ---
[facility] Detox Discharge Summary Admission Date: 06/15/19 Discharge Date: 06/20/19 - History Present History: Alcohol Dependence Additional Comments: PATIENT GOING TO REACH OUTPATIENT PROGRAM ([facility], [place]) FOR AFTERCARE. PATIENT WILL ALSO ATTEND LOCAL 12-STEP/AA SUPPORT GROUP MEETINGS FOR AFTERCARE. PATIENT WILL ALSO RETURN TO [facility] ([facility], [place]), WHERE HE HAS PREVIOUSLY BEEN A CLIENT, FOR AFTERCARE. PATIENT WAS DISCHARGED FROM DETOX UNIT IN STABLE MEDICAL CONDITION. Pertinent Past History: Hep C (Treated), Depression, Bipolar Disorder, Insomnia, Anxiety, Elevated AST Level, Elevated ALT Level, Nicotine Dependence, M.M.T.P. - Physical Exam Results Vital Signs: Vital Signs Temperature 97.2 F L 06/20/19 06:00 Pulse Rate 57 L 06/20/19 06:00 Respiratory Rate 18 06/20/19 06:00 Blood Pressure 137/86 06/20/19 06:00 O2 Sat by Pulse Oximetry (%) Pertinent Admission Physical Exam Findings: WITHDRAWAL SYMPTOMS. Laboratory Tests 06/15/19 06/15/19 06/15/19 15:00 15:00 15:00 WBC 5.8 RBC 4.19 Hgb 12.9 Hct 39.2 MCV 93.6 MCH 30.7 MCHC 32.8 RDW 14.4 Plt Count 181 MPV 9.1 Sodium 143 Potassium 4.1 Chloride 105 Carbon Dioxide 29 Anion Gap 9 BUN 10.1 Creatinine 0.7 Est GFR (CKD-EPI)AfAm 122.27 Est GFR (CKD-EPI)NonAf 105.50 Random Glucose 78 Calcium 9.2 Total Bilirubin 0.5 AST 79 H ALT 101 H Alkaline Phosphatase 89 Total Protein 7.7 Albumin 4.0 Urine Color Urine Appearance Urine pH Ur Specific [place] Urine Protein Urine Glucose (UA) Urine Ketones Urine Blood Urine Nitrite Urine Bilirubin Urine Urobilinogen Ur Leukocyte Esterase Urine WBC (Auto) Urine RBC (Auto) Urine Casts (Auto) U Epithel Cells (Auto) Urine Crystals (Auto) Urine Bacteria (Auto) RPR Titer Nonreactive 06/18/19 10:24 WBC RBC Hgb Hct MCV MCH MCHC RDW Plt Count MPV Sodium Potassium Chloride Carbon Dioxide Anion Gap BUN Creatinine Est GFR (CKD-EPI)AfAm Est GFR (CKD-EPI)NonAf Random Glucose Calcium Total Bilirubin AST ALT Alkaline Phosphatase Total Protein Albumin Urine Color Yellow Urine Appearance Clear Urine pH 5.5 Ur Specific [place] 1.024 Urine Protein Negative Urine Glucose (UA) Negative Urine Ketones Trace H Urine Blood Negative Urine Nitrite Negative Urine Bilirubin Negative Urine Urobilinogen 1.0 Ur Leukocyte Esterase 1+ H Urine WBC (Auto) 5 Urine RBC (Auto) 2 Urine Casts (Auto) 11 U Epithel Cells (Auto) 2.1 Urine Crystals (Auto) Calcium oxalate=1+ Urine Bacteria (Auto) 2.7 RPR Titer LABS NOTED. - Treatment Patient has Accepted a Rehab Referral to: PAT[facility] ALSO RETURN TO HELP [facility] - Diagnosis (1) Alcohol dependence with uncomplicated withdrawal Status: Acute (2) Bipolar disorder Status: Acute (3) Methadone maintenance therapy patient Status: Chronic (4) Nicotine dependence Status: Chronic Qualifiers: Nicotine product type: cigarettes Substance use status: in withdrawal Qualified Code(s): F17.213 - Nicotine dependence, cigarettes, with withdrawal (5) Schizophrenia Status: Chronic Qualifiers: Schizophrenia type: unspecified Qualified Code(s): F20.9 - Schizophrenia, unspecified - AMA Did Patient Leave Against Medical Advice: No
== END 2019-06-20 09:23 | disposition home or self-care (01) | DRG 773 ==
LOC: YASAS 11:15 → Y6N 15:39
PROVIDERS: ADMIT Surgery; ATTEND Surgery
PROC: HZ2ZZZZ Detoxification Services for Substance Abuse Treatment (ICD-10-PCS; principal; 2019-06-15)
DX: F10.230 Alcohol dependence with withdrawal, uncomplicated (principal); F11.20 Opioid dependence, uncomplicated; F17.213 Nicotine dependence, cigarettes, with withdrawal; F31.9 Bipolar disorder, unspecified; F20.9 Schizophrenia, unspecified; R74.0 Nonspecific elevation of levels of transaminase and lactic acid dehydrogenase [LDH]; R82.90 Unspecified abnormal findings in urine; R03.0 Elevated blood-pressure reading, without diagnosis of hypertension; Z91.013 Allergy to seafood; Z91.5 Personal history of self-harm
CPT/HCPCS: 36415; 80053; 81003; 85027; 86593

== ENCOUNTER 2019-08-16 10:39 | Inpatient (IN) | payer OTHER ==
[2019-08-16 11:21] VITALS: BMI 25.9
--- NOTE | 2019-08-16 12:12 | HP ---
CIWA Score Nausea/Vomitin-Int. Nausea w/Dry Heave Muscle Tremors: 3 Anxiety: 2 Agitation: 2 Paroxysmal Sweats: 2 Orientation: 1-Uncertain about Date Tacttile Disturbances: 0-None Auditory Disturbances: 0-None Visual Disturbances: 0-None Headache: 1-Very Mild CIWA-Ar Total Score: 15 - Admission Criteria OASAS Guidelines: Admission for Medically Managed Detox: Requires at least one of the followin. CIWA greater than 12 2. Seizures within the past 24 hours 3. Delirium tremens within the past 24 hours 4. Hallucinations within the past 24 hours 5. Acute intervention needed for co occurring medical disorder 6. Acute intervention needed for co occurring psychiatric disorder 7. Severe withdrawal that cannot be handled at a lower level of care (continued vomiting, continued diarrhea, abnormal vital signs) requiring intravenous medication and/or fluids 8. Patient presents the following: CIWA greater than 12 Admission Criteria Met: Admission criteria met Admitting History and Physical - Smoking History Smoking history: Current every day smoker Have you smoked in the past 12 months: Yes Aproximately how many cigarettes per day: 5 - Alcohol/Substance Use Hx Alcohol Use: Yes Admission ROS [facility] Chief Complaint: Dave Conde is a 54 year old male presenting for alcohol detox. Allergies/Adverse Reactions: Allergies Allergy/AdvReac Type Severity Reaction Status Date / Time fish derived [Fish derived] Allergy Intermediate Swelling Verified 08/16/19 11: 21 iodine [Iodine] Allergy Intermediate Verified 08/16/19 11:21 History of Present Illness: Dave Conde is a 54 year old male presenting for alcohol detox. Alcohol: 2-3 pints a day, hard alcohol. Daily drinker. Last drink was this morning. Denies history of seizures. States has had blackout, falls. Stated longest period of sobriety was 4 years. Stated that he knows that being around others who drink is a big trigger form him. Heroin: last was this morning. Uses twice a month. Inhalation. Denies IVDU. Currently on methadone program through [facility], dose 40mg. Last dose today. THC: 1 joint/per month Has been to detox and rehab in the past. Stated that he wants to go into an inpatient rehab program after he completes detox. Stated that he is interested in continuing NA meetings and starting to go to AA meetings as well. Medical History: Hep C (treated) Surgical History: denies Psychiatric History: depression Smokin cigarettes a day, 25 years Social: lives with sister. Unemployed. Is in contact with family. Has 2 kids. Utox: THC, FEN, OPI, MTD RINA 0.013 - Ebola screening Have you traveled outside of the country in the last 21 days: No (N) Have you had contact with anyone from an Ebola affected area: No Do you have a fever: No - Review of Systems Constitutional: No Symptoms Reported EENT: reports: No Symptoms Reported Respiratory: reports: No Symptoms reported Cardiac: reports: No Symptoms Reported GI: reports: Nausea, Vomiting : reports: No Symptoms Reported Musculoskeletal: reports: No Symptoms Reported Integumentary: reports: No Symptoms Reported Neuro: reports: Tremors Endocrine: reports: No Symptoms Reported Hematology: reports: No Symptoms Reported Psychiatric: reports: Anxious Patient History - Patient Medical History Hx Anemia: No Hx Asthma: No Hx Chronic Obstructive Pulmonary Disease (COPD): No Hx Cancer: No Hx Cardiac Disorders: No Hx Congestive Heart Failure: No Hx Hypertension: No Hx Hypercholesterolemia: No Hx Pacemaker: No HX Cerebrovascular Accident: No Hx Seizures: No Hx Dementia: No Hx Diabetes: No Hx Gastrointestinal Disorders: No Hx Liver Disease: No Hx Genitourinary Disorders: No Hx Sexually Transmitted Disorders: No Hx Renal Disease (ESRD): No Hx Thyroid Disease: No Hx Human Immunodeficiency Virus (HIV): No (last 05/27 negative) Hx Hepatitis C: Yes (treatment) Hx Depression: Yes (ON MEDS) Hx Suicide Attempt: Yes (Suicide attempt in 1993. Denies suicidal ideation at this time) Hx Bipolar Disorder: Yes Hx Schizophrenia: No - Patient Surgical History Past Surgical History: No Hx Neurologic Surgery: No Hx Cataract Extraction: No Hx Cardiac Surgery: No Hx Lung Surgery: No Hx Breast Surgery: No Hx Breast Biopsy: No Hx Abdominal Surgery: No Hx Appendectomy: No Hx Cholecystectomy: No Hx Genitourinary Surgery: No Hx Section: No Hx Orthopedic Surgery: No Anesthesia Reaction: No - PPD History Previous Implant?: Yes Documented Results: Negative w/o proof Implanted On Prior [facility] Admission?: Yes Date: 02/03/18 Results: 0MM PPD to be Administered?: Yes - Smoking Cessation Smoking history: Current every day smoker Have you smoked in the past 12 months: Yes Aproximately how many cigarettes per day: 5 Hx Chewing Tobacco Use: No Initiated information on smoking cessation: Yes 'Breaking Loose' booklet given: 08/16/19 - Substance & Tx. History Hx Alcohol Use: Yes Hx Substance Use: Yes Substance Use Type: Alcohol, Heroin, Marijuana - Substances abused Alcohol Substance route: Oral Frequency: Daily Amount used: 2pints of vodka/day Age of first use: 10 Date of last use: 08/16/19 Heroin Substance route: Inhalation Frequency: 1-2 times per week Amount used: 1 bag Age of first use: 16 Date of last use: 08/16/19 Marijuana/Hashish Substance route: Smoking Frequency: 1-3 times last 30 days Amount used: 10$ Age of first use: 13 Date of last use: 08/16/19 Admission Physical Exam [facility] - Vital Signs Vital Signs: Vital Signs - 24 hr 08/16/19 08/16/19 11:18 11:53 Temperature 98.6 F 98.6 F Pulse Rate 70 70 Respiratory 20 20 Rate Blood Pressure 166/97 166/97 - Physical General Appearance: Yes: Disheveled, Mild Distress HEENTM: Yes: EOMI, Normal Voice, SIERRA, Pharynx Normal Respiratory: Yes: Chest Non-Tender, Lungs Clear, Normal Breath Sounds, No Respiratory Distress, No Accessory Muscle Use Neck: Yes: No masses,lesions,Nodules, Trachea in good position Breast: Yes: Breast Exam Deferred Cardiology: Yes: Regular Rhythm, Regular Rate, S1, S2 Abdominal: Yes: Normal Bowel Sounds, Non Tender, Flat, Soft Genitourinary: Yes: Within Normal Limits Back: Yes: Normal Inspection Musculoskeletal: Yes: full range of Motion Extremities: Yes: Normal Capillary Refill, Normal Inspection, Normal Range of Motion, Non-Tender Neurological: Yes: ssas developer II-XII NML intact, Fully Oriented, Alert, Motor Strength 5/5 Integumentary: Yes: Normal Color, Dry, Warm - Diagnostic (1) Alcohol dependence with uncomplicated withdrawal Current Visit: No Status: Acute (2) Cannabis dependence Current Visit: No Status: Acute (3) Substance induced mood disorder Current Visit: No Status: Acute (4) Methadone maintenance therapy patient Current Visit: No Status: Chronic Comment: [facility] (5) Nicotine dependence Current Visit: No Status: Chronic Qualifiers: Nicotine product type: cigarettes Substance use status: in withdrawal Qualified Code(s): F17.213 - Nicotine dependence, cigarettes, with withdrawal (6) Depression Current Visit: No Status: Suspected Qualifiers: Depression Type: unspecified Qualified Code(s): F32.9 - Major depressive disorder, single episode, unspecified Cleared for Admission S - Detox or Rehab [facility] Level of Care: Medically Managed Detox Regimen/Protocol: Librium Breathalyzer - Breathalyzer Breathalyzer: 0.013 Urine Drug Screen - Test Device Lot number: [id number] Expiration date: 03/29/21 - Control Is test valid?: Yes - Results Drug screen NEGATIVE: No Urine drug screen results: THC-Marijuana, FEN-Fentanyl, MOP-Opiates, MTD- Methadone Inpatient Rehab Admission - Rehab Decision to Admit Inpatient rehab admission?: No
[2019-08-16] MEDS ORDERED: chlordiazePOXIDE HCL 10 MG CAPSULE PO PRN (12:26)
[2019-08-16] MEDS ORDERED: MELATONIN 5 MG TABLETS PO PRN (12:26)
[2019-08-16] MEDS ORDERED: MAGNESIUM CITRATE 300 ML BOTTLE PO PRN (12:26)
[2019-08-16] MEDS ORDERED: MAGNESIUM HYDROX 2400MG/30ML ORAL SUSPENSION 30 ML CUP PO PRN (12:26)
[2019-08-16] MEDS ORDERED: MAG HYDROX/AL HYDROX/SIMETH 30 ML UNIT-DOSE CUP PO PRN (12:26)
[2019-08-16] MEDS ORDERED: MENTHOL/PHENOL 1 EACH UD MM PRN (12:26)
[2019-08-16] MEDS ORDERED: hydrOXYzine PAMOATE 25 MG CAPSULE (FP) PO PRN (12:26)
[2019-08-16] MEDS ORDERED: ACETAMINOPHEN 325 MG TABLET (FP) PO PRN ×2 (12:26)
[2019-08-16] MEDS ORDERED: BISMUTH SUBSALICYLATE 524 MG/30 ML UD PO PRN (12:26)
[2019-08-16] MEDS ORDERED: IBUPROFEN 400 MG TABLET (FP) PO PRN (12:26)
[2019-08-16] MEDS ORDERED: metoPROLOL SUCCINATE 25 MG TAB.SR.24H (FP) PO ONE (12:27)
[2019-08-16] MEDS: chlordiazePOXIDE HCL 25 MG CAPSULE PO SCH ×2 (13:12→22:05)
--- NOTE | 2019-08-16 13:50 | PN ---
Teaching Attending Note Name of Resident: Charlie Bautista ATTENDING PHYSICIAN STATEMENT I saw and evaluated the patient. I reviewed the resident's note and discussed the case with the resident. I agree with the resident's findings and plan as documented. SUBJECTIVE: 54 year old male presenting for alcohol detox reports liquor 2-3 pints / day , latest use this morning. Denies history of seizures , reports blackouts and falls, longest period of sobriety 4 years. Heroin: claims 2 x/ month via inhalation . Denies IVDU. Currently on methadone program through [facility], dose 40mg today . THC: 1 joint/per month Medical History: Hep C (treated 2017 ) unknown RF ? ST , denies IVDU Psychiatric History: depression denies SI / HI tobacco : 10 cigarettes / day x 25 years denies current legal issues Utox: THC, FEN, OPI, MTD RINA 0.013 OBJECTIVE: wnwd Vital Signs - 24 hr 08/16/19 08/16/19 08/16/19 11:18 11:53 13:36 Temperature 98.6 F 98.6 F 97.8 F Pulse Rate 70 70 78 Respiratory 20 20 18 Rate Blood Pressure 166/97 166/97 157/99 ASSESSMENT AND PLAN: Opioid dependence on agonist therapy Alcohol dependence - Librium detox Nicotine dependence - smoking cessation counseling
[2019-08-16 16:30] LABS: HEMATOCRIT 42.7 % (35.4-49); MCH 30.1 pg (25.7-33.7); MCHC 32.9 g/dl (32.0-35.9); MEAN CELL VOLUME 91.8 fl (80-96); MEAN PLT VOLUME 8.9 fl (7.5-11.1); PLATELET COUNT 233 K/MM3 (134-434); RBC 4.65 M/mm3 (4.00-5.60); RDW 14.3 % (11.9-15.9); WHITE BLOOD COUNT 6.9 K/mm3 (4.0-10.0)
[2019-08-16 16:47] LABS: ALBUMIN 4.7 g/dl (3.4-5.0); BILIRUBIN,TOTAL 0.8 mg/dL (0.2-1); BLOOD UREA NITROGEN 9.4 mg/dL (7-18); CALCIUM 9.7 mg/dL (8.5-10.1); CREATININE 0.8 mg/dL (0.55-1.3); POTASSIUM 4.4 mmol/L (3.5-5.1); TOT PROT 8.7 g/dl (6.4-8.2)
[2019-08-16] MEDS: THIAMINE HCL 100 MG TABLET (FP) PO SCH (22:05)
[2019-08-17] MEDS: METHADONE HCL 40 MG DISPERSABLE TABLET PO SCH (05:40)
[2019-08-17] MEDS: chlordiazePOXIDE HCL 25 MG CAPSULE PO SCH ×3 (05:41→21:43)
[2019-08-17] MEDS: PRENATAL VITAMINS W/ FOLIC ACID TABLET (FP) PO SCH (10:33)
--- NOTE | 2019-08-17 12:31 | PN ---
S CIWA - CIWA Score Nausea/Vomitin-Mild Nausea/No Vomiting Muscle Tremors: 2 Anxiety: 3 Agitation: 2 Paroxysmal Sweats: 2 Orientation: 0-Oriented Tacttile Disturbances: 1-Very Mild Itch/Numbness Auditory Disturbances: 0-None Visual Disturbances: 1-Very Mild Sensitivity Headache: 1-Very Mild CIWA-Ar Total Score: 13 S Progress Note (SOAP) Subjective: c/o of interrupted sleep, anxiety chills, sweats Objective: 08/17/19 12:30 Vital Signs Temperature 97.5 F L 08/17/19 09:12 Pulse Rate 98 H 08/17/19 09:12 Respiratory Rate 20 08/17/19 09:12 Blood Pressure 133/92 08/17/19 09:12 O2 Sat by Pulse Oximetry (%) Laboratory Last Values WBC 6.9 K/mm3 (4.0-10.0) 08/16/19 13:40 RBC 4.65 M/mm3 (4.00-5.60) 08/16/19 13:40 Hgb 14.0 GM/dL (11.7-16.9) 08/16/19 13:40 Hct 42.7 % (35.4-49) 08/16/19 13:40 MCV 91.8 fl (80-96) 08/16/19 13:40 MCH 30.1 pg (25.7-33.7) 08/16/19 13:40 MCHC 32.9 g/dl (32.0-35.9) 08/16/19 13:40 RDW 14.3 % (11.9-15.9) 08/16/19 13:40 Plt Count 233 K/MM3 (134-434) D 08/16/19 13:40 MPV 8.9 fl (7.5-11.1) 08/16/19 13:40 Sodium 136 mmol/L (136-145) 08/16/19 13:20 Potassium 4.4 mmol/L (3.5-5.1) 08/16/19 13:20 Chloride 100 mmol/L (98-107) 08/16/19 13:20 Carbon Dioxide 31 mmol/L (21-32) 08/16/19 13:20 Anion Gap 5 MMOL/L (8-16) L 08/16/19 13:20 BUN 9.4 mg/dL (7-18) 08/16/19 13:20 Creatinine 0.8 mg/dL (0.55-1.3) 08/16/19 13:20 Est GFR (CKD-EPI)AfAm 115.74 08/16/19 13:20 Est GFR (CKD-EPI)NonAf 99.86 08/16/19 13:20 Random Glucose 88 mg/dL (74-106) 08/16/19 13:20 Calcium 9.7 mg/dL (8.5-10.1) 08/16/19 13:20 Total Bilirubin 0.8 mg/dL (0.2-1) 08/16/19 13:20 AST 194 U/L (15-37) H 08/16/19 13:20 ALT 165 U/L (13-61) H 08/16/19 13:20 Alkaline Phosphatase 110 U/L (45-117) 08/16/19 13:20 Total Protein 8.7 g/dl (6.4-8.2) H 08/16/19 13:20 Albumin 4.7 g/dl (3.4-5.0) 08/16/19 13:20 repeat CM P Assessment: 08/17/19 22:10 Aox3 no acute distress full ROM ambulating in the unit withdrawal sx Plan: increase fluids continue detox continue to monitor Is stable can d/c Thursday08/19/19
[2019-08-17] MEDS: THIAMINE HCL 100 MG TABLET (FP) PO SCH (21:43)
[2019-08-18] MEDS: chlordiazePOXIDE 5 MG CAPSULE PO SCH ×3 (05:17→22:15)
[2019-08-18] MEDS: METHADONE HCL 40 MG DISPERSABLE TABLET PO SCH (05:17)
[2019-08-18] MEDS: PRENATAL VITAMINS W/ FOLIC ACID TABLET (FP) PO SCH (10:46)
[2019-08-18] MEDS ORDERED: COLLOIDAL OATMEAL 1 BAR EACH TP PRN (14:11)
[2019-08-18] MEDS: AMMONIUM LACTATE 12% LOTION 225 GM BOTTLE TP SCH ×2 (15:34→22:16)
--- NOTE | 2019-08-18 17:04 | PN ---
S CIWA - CIWA Score Nausea/Vomitin-No Nausea/No Vomiting Muscle Tremors: None Anxiety: 0-No Anxiety, at Ease Agitation: 2 Paroxysmal Sweats: No Perspiration Orientation: 0-Oriented Tacttile Disturbances: 0-None Auditory Disturbances: 0-None Visual Disturbances: 0-None Headache: 0-None Present CIWA-Ar Total Score: 2 BHS Progress Note (SOAP) Subjective: Patient denies current Withdrawal / Detox symptoms and reports that he feels well overall at this time. Objective: PATIENT A & O X 3, OBSERVED AMBULATING ON DETOX UNIT UNASSISTED. IN NO ACUTE DISTRESS. 08/18/19 17:01 Vital Signs Temperature 97.5 F L 08/18/19 09:17 Pulse Rate 86 08/18/19 09:17 Respiratory Rate 16 08/18/19 09:17 Blood Pressure 140/99 08/18/19 09:17 O2 Sat by Pulse Oximetry (%) Laboratory Tests 08/16/19 08/16/19 13:20 13:40 WBC 6.9 RBC 4.65 Hgb 14.0 Hct 42.7 MCV 91.8 MCH 30.1 MCHC 32.9 RDW 14.3 Plt Count 233 D MPV 8.9 Sodium 136 Potassium 4.4 Chloride 100 Carbon Dioxide 31 Anion Gap 5 L BUN 9.4 Creatinine 0.8 Est GFR (CKD-EPI)AfAm 115.74 Est GFR (CKD-EPI)NonAf 99.86 Random Glucose 88 Calcium 9.7 Total Bilirubin 0.8 AST 194 H ALT 165 H Alkaline Phosphatase 110 Total Protein 8.7 H Albumin 4.7 LABS NOTED. Assessment: 08/18/19 17:02 WITHDRAWAL SYMPTOMS. ELEVATED ALT LEVEL. ELEVATED AST LEVEL. Plan: CONTINUE DETOX. SINCE PATIENT DENIES CURRENT WITHDRAWAL / DETOX SYMPTOMS AND REPORTS THAT HE FEELS WELL OVERALL, AT PATIENT'S REQUEST, HE WILL LIKELY BE DISCHARGED FROM DETOX UNIT TOMORROW FOR REHAB PENDING BED AVAILABILITY.
[2019-08-18] MEDS: THIAMINE HCL 100 MG TABLET (FP) PO SCH (22:15)
[2019-08-19] MEDS ORDERED: chlordiazePOXIDE HCL 10 MG CAPSULE PO PRN
[2019-08-19] MEDS ORDERED: chlordiazePOXIDE HCL 10 MG CAPSULE PO SCH (05:00)
[2019-08-19] MEDS: METHADONE HCL 40 MG DISPERSABLE TABLET PO SCH (05:06)
[2019-08-19] MEDS: PRENATAL VITAMINS W/ FOLIC ACID TABLET (FP) PO SCH (09:24)
[2019-08-19] MEDS: AMMONIUM LACTATE 12% LOTION 225 GM BOTTLE TP SCH ×2 (09:25→22:16)
--- NOTE | 2019-08-19 09:58 | DS ---
[facility] Summary Admission Date: 08/16/19 - History Present History: Alcohol Dependence, Cannabis Dependence, MMTP - Physical Exam Results Vital Signs: Vital Signs Temperature 99.2 F 08/19/19 09:12 Pulse Rate 82 08/19/19 09:12 Respiratory Rate 18 08/19/19 09:12 Blood Pressure 129/93 08/19/19 09:12 O2 Sat by Pulse Oximetry (%) - Treatment Hospital Course: Detox Protocol Followed, Detoxed Safely, Responded well, Discharged Condition Good - Medication Discharge Medications: Ambulatory Orders NK [No Known Home Medication] 08/16/19 - Diagnosis (1) Elevated alanine aminotransferase (ALT) level Current Visit: Yes Status: Acute (2) Elevated aspartate aminotransferase level Current Visit: Yes Status: Acute (3) Alcohol dependence with uncomplicated withdrawal Current Visit: Yes Status: Chronic (4) Cannabis dependence Current Visit: No Status: Chronic (5) Methadone maintenance therapy patient Current Visit: Yes Status: Chronic (6) Nicotine dependence Current Visit: Yes Status: Chronic Qualifiers: Nicotine product type: cigarettes Substance use status: in withdrawal Qualified Code(s): F17.213 - Nicotine dependence, cigarettes, with withdrawal (7) Depression Current Visit: No Status: Suspected Qualifiers: Depression Type: unspecified Qualified Code(s): F32.9 - Major depressive disorder, single episode, unspecified - AMA Did Patient Leave Against Medical Advice: No
[2019-08-19] MEDS: chlordiazePOXIDE 5 MG CAPSULE PO SCH ×3 (13:14→23:00)
--- NOTE | 2019-08-19 16:59 | PN ---
[facility] CIWA - CIWA Score Nausea/Vomitin-No Nausea/No Vomiting Muscle Tremors: None Anxiety: 0-No Anxiety, at Ease Agitation: 2 Paroxysmal Sweats: No Perspiration Orientation: 0-Oriented Tacttile Disturbances: 0-None Auditory Disturbances: 0-None Visual Disturbances: 0-None Headache: 0-None Present CIWA-Ar Total Score: 2 S Progress Note (SOAP) Subjective: Fatigue (Mild). Objective: PATIENT A & O X 3, OBSERVED AMBULATING ON DETOX UNIT UNASSISTED. IN NO ACUTE DISTRESS. 08/19/19 16:58 Vital Signs Temperature 97.9 F 08/19/19 13:36 Pulse Rate 73 08/19/19 13:36 Respiratory Rate 18 08/19/19 13:36 Blood Pressure 139/93 08/19/19 13:36 O2 Sat by Pulse Oximetry (%) Laboratory Tests 08/16/19 08/16/19 13:20 13:40 WBC 6.9 RBC 4.65 Hgb 14.0 Hct 42.7 MCV 91.8 MCH 30.1 MCHC 32.9 RDW 14.3 Plt Count 233 D MPV 8.9 Sodium 136 Potassium 4.4 Chloride 100 Carbon Dioxide 31 Anion Gap 5 L BUN 9.4 Creatinine 0.8 Est GFR (CKD-EPI)AfAm 115.74 Est GFR (CKD-EPI)NonAf 99.86 Random Glucose 88 Calcium 9.7 Total Bilirubin 0.8 AST 194 H ALT 165 H Alkaline Phosphatase 110 Total Protein 8.7 H Albumin 4.7 LABS NOTED. PATIENT HAS HAD ELEVATED AST LEVELS ON PREVIOUS ADMISSIONS. 08/19/19 17:02 Assessment: 08/19/19 16:59 WITHDRAWAL SYMPTOMS. ELEVATED ALT LEVEL. ELEVATED AST LEVEL. Plan: CONTINUE DETOX. PATIENT WAS ORIGINALLY SCHEDULED TO BE DISCHARGED FROM DETOX UNIT TOMORROW, 10/2019. HOWEVER, PATIENT THEN WISHED TO LEAVE TODAY TO GO TO REHAB OTHER THAN [facility]. HOWEVER, PATIENT LATER DECIDED THAT HE WANTED TO GO TO [facility] REHAB INSTEAD. PATIENT WILL BE DISCHARGED TOMORROW ( ORIGINALLY SCHEDULED PER DETOX ADMISSION ORDERS) AND THEN WILL RETURN ON MNODAY, 08/22/2019 TO APPLY FOR ADMISSION TO [facility] ([place], [place]).
[2019-08-19 22:06] VITALS: TEMP 98.1
[2019-08-19] MEDS: THIAMINE HCL 100 MG TABLET (FP) PO SCH (22:16)
[2019-08-20] MEDS ORDERED: chlordiazePOXIDE HCL 10 MG CAPSULE PO ONE (05:00)
[2019-08-20] MEDS: METHADONE HCL 40 MG DISPERSABLE TABLET PO SCH (05:52)
[2019-08-20] MEDS: chlordiazePOXIDE 5 MG CAPSULE PO SCH (05:52)
[2019-08-20 06:44] VITALS: BP 113/77; PULSE 62
--- NOTE | 2019-08-20 13:37 | DS ---
[facility] Detox Discharge Summary Admission Date: 08/16/19 Discharge Date: 08/20/19 - History Present History: Alcohol Dependence, Cannabis Dependence Additional Comments: Pt is medically cleared and is discharge today. Pt completed his detox protocol. Pt is encouraged to follow-up with [facility] oupatient program and also to follow-up with his pmd. Pt verbalized understanding. Pt is alert and oriented x3 and in no respiratory distress. Pertinent Past History: H/O heroin, cannabis, and alcohol use disorder. - Physical Exam Results Vital Signs: Vital Signs Temperature 98.1 F 08/20/19 06:43 Pulse Rate 62 08/20/19 06:43 Respiratory Rate 16 08/20/19 06:43 Blood Pressure 113/77 08/20/19 06:43 O2 Sat by Pulse Oximetry (%) Vital Signs 08/20/19 06:43 Temperature 98.1 F Pulse Rate 62 Respiratory 16 Rate Blood Pressure 113/77 Lab Results WBC 6.9 K/mm3 (4.0-10.0) 08/16/19 13:40 RBC 4.65 M/mm3 (4.00-5.60) 08/16/19 13:40 Hgb 14.0 GM/dL (11.7-16.9) 08/16/19 13:40 Hct 42.7 % (35.4-49) 08/16/19 13:40 MCV 91.8 fl (80-96) 08/16/19 13:40 MCHC 32.9 g/dl (32.0-35.9) 08/16/19 13:40 RDW 14.3 % (11.9-15.9) 08/16/19 13:40 Plt Count 233 K/MM3 (134-434) D 08/16/19 13:40 Sodium 136 mmol/L (136-145) 08/16/19 13:20 Potassium 4.4 mmol/L (3.5-5.1) 08/16/19 13:20 Chloride 100 mmol/L (98-107) 08/16/19 13:20 Carbon Dioxide 31 mmol/L (21-32) 08/16/19 13:20 Anion Gap 5 MMOL/L (8-16) L 08/16/19 13:20 BUN 9.4 mg/dL (7-18) 08/16/19 13:20 Creatinine 0.8 mg/dL (0.55-1.3) 08/16/19 13:20 Random Glucose 88 mg/dL (74-106) 08/16/19 13:20 Calcium 9.7 mg/dL (8.5-10.1) 08/16/19 13:20 Labs noted. Pertinent Admission Physical Exam Findings: withdrawal symptoms. - Treatment Hospital Course: Detox Protocol Followed, Detoxed Safely, Responded well, Discharged Condition Good - Medication Discharge Medications: Ambulatory Orders NK [No Known Home Medication] 08/16/19 - Diagnosis (1) Elevated alanine aminotransferase (ALT) level Status: Acute (2) Elevated aspartate aminotransferase level Status: Acute (3) Opioid dependence on agonist therapy Status: Acute (4) Alcohol dependence with uncomplicated withdrawal Status: Chronic (5) Cannabis dependence Status: Chronic (6) Nicotine dependence Status: Chronic Qualifiers: Nicotine product type: cigarettes Substance use status: in withdrawal Qualified Code(s): F17.213 - Nicotine dependence, cigarettes, with withdrawal - AMA Did Patient Leave Against Medical Advice: No
== END 2019-08-20 09:15 | disposition home or self-care (01) | DRG 773 ==
LOC: YASAS 10:39 → Y3N 12:33
PROVIDERS: ADMIT Allergy & Immunology; ATTEND Allergy & Immunology
PROC: HZ2ZZZZ Detoxification Services for Substance Abuse Treatment (ICD-10-PCS; principal; 2019-08-16)
DX: F10.230 Alcohol dependence with withdrawal, uncomplicated (principal); F11.20 Opioid dependence, uncomplicated; F12.20 Cannabis dependence, uncomplicated; F17.213 Nicotine dependence, cigarettes, with withdrawal; F19.24 Other psychoactive substance dependence with psychoactive substance-induced mood disorder; F31.9 Bipolar disorder, unspecified; B18.2 Chronic viral hepatitis C; R94.5 Abnormal results of liver function studies; Z91.5 Personal history of self-harm; Z91.013 Allergy to seafood; Z88.9 Allergy status to unspecified drugs, medicaments and biological substances
CPT/HCPCS: 36415; 80053; 85027

== ENCOUNTER 2019-08-31 12:59 | Inpatient (IN) | payer OTHER ==
[2019-08-31 15:16] VITALS: BMI 26.1
--- NOTE | 2019-08-31 16:58 | HP ---
CIWA Score Nausea/Vomitin-No Nausea/No Vomiting Muscle Tremors: 3 Anxiety: 3 Agitation: 4-Moderately Restless Paroxysmal Sweats: 3 Orientation: 0-Oriented Tacttile Disturbances: 0-None Auditory Disturbances: 0-None Visual Disturbances: 0-None Headache: 0-None Present CIWA-Ar Total Score: 13 - Admission Criteria OASAS Guidelines: Admission for Medically Managed Detox: Requires at least one of the followin. CIWA greater than 12 2. Seizures within the past 24 hours 3. Delirium tremens within the past 24 hours 4. Hallucinations within the past 24 hours 5. Acute intervention needed for co occurring medical disorder 6. Acute intervention needed for co occurring psychiatric disorder 7. Severe withdrawal that cannot be handled at a lower level of care (continued vomiting, continued diarrhea, abnormal vital signs) requiring intravenous medication and/or fluids 8. Admitting History and Physical - Primary Care Physician PCP: [facility] - Admission History Source: Patient Limitations to Obtaining History: No Limitations - Past Medical History Hepatobiliary: Yes: Hepatitis C (completed treatment at [facility]) Psych: Yes: Anxiety, Bipolar, Depression - Past Surgical History Past Surgical History: Yes: None - Smoking History Smoking history: Current every day smoker Have you smoked in the past 12 months: Yes Aproximately how many cigarettes per day: 5 - Alcohol/Substance Use Hx Alcohol Use: Yes - Social History Usual Living Arrangement: Yes: Alone Do you think of yourself as: Straight/Heterosexual ADL: Independent History of Recent Travel: No Admission ROS S - HPI Chief Complaint: I am here for detox from my alcohol problems Allergies/Adverse Reactions: Allergies Allergy/AdvReac Type Severity Reaction Status Date / Time fish derived [Fish derived] Allergy Intermediate Swelling Verified 08/31/19 15: 04 iodine [Iodine] Allergy Intermediate Verified 08/31/19 15:04 History of Present Illness: pt is a 54yrold male with a long history of alcohol dependence seeking detox for treatment. Exam Limitations: No Limitations - Ebola screening Have you traveled outside of the country in the last 21 days: No Have you had contact with anyone from an Ebola affected area: No Have you been sick,other than usual withdrawal symptoms: No Do you have a fever: No - Review of Systems Constitutional: Chills, Diaphoresis, Loss of Appetite, Night Sweats, Unintentional Wgt. Loss EENT: reports: Tearing, Nose Congestion Respiratory: reports: No Symptoms reported Cardiac: reports: No Symptoms Reported GI: reports: Constipated, Poor Appetite, Poor Fluid Intake : reports: No Symptoms Reported Musculoskeletal: reports: Back Pain, Joint Pain Integumentary: reports: Flushing, Sweating Neuro: reports: Headache, Tingling, Tremors Endocrine: reports: Excessive Sweating, Flushing Hematology: reports: No Symptoms Reported Psychiatric: reports: No Sypmtoms Reported, Judgement Intact, Mood/Affect Appropiate, Orientated x3, Agitated Other Systems: Reviewed and Negative Patient History - Patient Medical History Hx Anemia: No Hx Asthma: No Hx Chronic Obstructive Pulmonary Disease (COPD): No Hx Cancer: No Hx Cardiac Disorders: No Hx Congestive Heart Failure: No Hx Hypertension: No Hx Hypercholesterolemia: No Hx Pacemaker: No HX Cerebrovascular Accident: No Hx Seizures: No Hx Dementia: No Hx Diabetes: No Hx Gastrointestinal Disorders: No Hx Liver Disease: No Hx Genitourinary Disorders: No Hx Sexually Transmitted Disorders: No Hx Renal Disease (ESRD): No Hx Thyroid Disease: No Hx Human Immunodeficiency Virus (HIV): No (last 05/27 negative) Hx Hepatitis C: Yes (treatment) Hx Depression: Yes Hx Suicide Attempt: No (pt denies) Hx Bipolar Disorder: Yes Hx Schizophrenia: No - Patient Surgical History Past Surgical History: No Hx Neurologic Surgery: No Hx Cataract Extraction: No Hx Cardiac Surgery: No Hx Lung Surgery: No Hx Breast Surgery: No Hx Breast Biopsy: No Hx Abdominal Surgery: No Hx Appendectomy: No Hx Cholecystectomy: No Hx Genitourinary Surgery: No Hx Section: No Hx Orthopedic Surgery: No Anesthesia Reaction: No - PPD History Previous Implant?: Yes Date: 08/18/19 Results: 0MM PPD to be Administered?: No - Reproductive History Patient is a Female of Child Bearing Age (11 -55 yrs old): No - Smoking Cessation Smoking history: Current every day smoker Have you smoked in the past 12 months: Yes Aproximately how many cigarettes per day: 5 Hx Chewing Tobacco Use: No Initiated information on smoking cessation: Yes 'Breaking Loose' booklet given: 08/31/19 - Substance & Tx. History Hx Alcohol Use: Yes Hx Substance Use: No Substance Use Type: Alcohol Hx Substance Use Treatment: Yes (last detox 06/2019) - Substances abused Alcohol Substance route: Oral Frequency: Daily Amount used: 1 pint of vodka Age of first use: 10 Date of last use: 08/31/19 Heroin Substance route: Inhalation Frequency: 1-3 times last 30 days Amount used: 1 bag Age of first use: 16 Date of last use: 08/31/19 Marijuana/Hashish Substance route: Smoking Frequency: 1-3 times last 30 days Amount used: 10$ Age of first use: 13 Date of last use: 08/24/19 Admission Physical Exam S - Vital Signs Vital Signs: Vital Signs - 24 hr 08/31/19 15:09 Temperature 97.9 F Pulse Rate 83 Respiratory 18 Rate Blood Pressure 129/89 - Physical General Appearance: Yes: Within Normal Limits, Moderate Distress, Tremorous, Irritable, Sweating, Anxious HEENTM: Yes: Hearing grossly Normal, Normal Voice, Nasal Congestion, Rhinorrhea Respiratory: Yes: Lungs Clear, Normal Breath Sounds, No Respiratory Distress Neck: Yes: No masses,lesions,Nodules Breast: Yes: Within Normal Limits Cardiology: Yes: Regular Rhythm, Regular Rate, S1, S2 Abdominal: Yes: Normal Bowel Sounds, Non Tender, Soft Genitourinary: Yes: Within Normal Limits Back: Yes: Normal Inspection Musculoskeletal: Yes: full range of Motion, Back pain Extremities: Yes: Normal Capillary Refill, Normal Inspection, Non-Tender, Tremors Neurological: Yes: Fully Oriented, Alert, Normal Response Integumentary: Yes: Normal Color, Diaphoresis Lymphatic: Yes: Within Normal Limits - Diagnostic (1) Bipolar disorder Current Visit: No Status: Acute (2) Elevated aspartate aminotransferase level Current Visit: No Status: Acute (3) Insomnia Current Visit: Yes Status: Chronic Qualifiers: Insomnia type: primary Qualified Code(s): F51.01 - Primary insomnia (4) Substance induced mood disorder Current Visit: No Status: Acute (5) Alcohol dependence with uncomplicated withdrawal Current Visit: Yes Status: Chronic (6) Cannabis dependence Current Visit: Yes Status: Chronic (7) Methadone maintenance therapy patient Current Visit: Yes Status: Chronic Comment: HELP (8) Nicotine dependence Current Visit: Yes Status: Chronic Qualifiers: Nicotine product type: cigarettes Substance use status: uncomplicated Qualified Code(s): F17.210 - Nicotine dependence, cigarettes, uncomplicated (9) Schizophrenia Current Visit: No Status: Chronic Qualifiers: Schizophrenia type: unspecified Qualified Code(s): F20.9 - Schizophrenia, unspecified Comment: As per self-report and existing records. (10) Depression Current Visit: No Status: Suspected Qualifiers: Depression Type: unspecified Qualified Code(s): F32.9 - Major depressive disorder, single episode, unspecified Cleared for Admission [facility] - Detox or Rehab [facility] Level of Care: Medically Managed Detox Regimen/Protocol: Librium Breathalyzer - Breathalyzer Breathalyzer: 0.102 Urine Drug Screen - Test Device Lot number: [id number] Expiration date: 04/08/21 - Control Is test valid?: Yes - Results Drug screen NEGATIVE: No Urine drug screen results: MOP-Opiates, OXY-Oxycodone, MTD-Methadone, BZO- Benzodiazepines Inpatient Rehab Admission - Rehab Decision to Admit Inpatient rehab admission?: No
[2019-08-31] MEDS ORDERED: MELATONIN 5 MG TABLETS PO PRN (17:13)
[2019-08-31] MEDS ORDERED: METHOCARBAMOL 500 MG TABLET PO PRN (17:13)
[2019-08-31] MEDS ORDERED: IBUPROFEN 400 MG TABLET (FP) PO PRN (17:13)
[2019-08-31] MEDS ORDERED: MAGNESIUM CITRATE 300 ML BOTTLE PO PRN (17:13)
[2019-08-31] MEDS ORDERED: MENTHOL/PHENOL 1 EACH UD MM PRN (17:13)
[2019-08-31] MEDS ORDERED: hydrOXYzine PAMOATE 25 MG CAPSULE (FP) PO PRN (17:13)
[2019-08-31] MEDS ORDERED: ACETAMINOPHEN 325 MG TABLET (FP) PO PRN ×2 (17:13)
[2019-08-31] MEDS ORDERED: MAGNESIUM HYDROX 2400MG/30ML ORAL SUSPENSION 30 ML CUP PO PRN (17:13)
[2019-08-31] MEDS ORDERED: NICOTINE POLACRILEX 4 MG GUM BUC PRN (17:13)
[2019-08-31] MEDS ORDERED: MAG HYDROX/AL HYDROX/SIMETH 30 ML UNIT-DOSE CUP PO PRN (17:13)
[2019-08-31] MEDS ORDERED: P-EPHED 60MG/TRIPROLIDI 2.5MG TABLET PO PRN (17:13)
[2019-08-31] MEDS ORDERED: BISMUTH SUBSALICYLATE 524 MG/30 ML UD PO PRN (17:13)
[2019-08-31] MEDS ORDERED: chlordiazePOXIDE HCL 25 MG CAPSULE PO PRN (17:13)
[2019-08-31] MEDS ORDERED: ONDANSETRON *ODT* 4 MG TABLET SL PRN (17:13)
[2019-08-31] MEDS: chlordiazePOXIDE HCL 25 MG CAPSULE PO SCH ×2 (18:49→22:01)
[2019-08-31] MEDS: THIAMINE HCL 100 MG TABLET (FP) PO SCH (22:01)
[2019-09-01] MEDS: chlordiazePOXIDE HCL 25 MG CAPSULE PO SCH ×4 (06:06→22:32)
[2019-09-01] MEDS: METHADONE HCL 40 MG DISPERSABLE TABLET PO SCH (07:37)
[2019-09-01 09:56] LABS: HEMATOCRIT 41.9 % (35.4-49); HEMOGLOBIN 13.8 GM/dL (11.7-16.9); MCH 30.4 pg (25.7-33.7); MCHC 32.9 g/dl (32.0-35.9); MEAN CELL VOLUME 92.4 fl (80-96); PLATELET COUNT 270 K/MM3 (134-434); RBC 4.54 M/mm3 (4.00-5.60); RDW 14.4 % (11.9-15.9); WHITE BLOOD COUNT 5.1 K/mm3 (4.0-10.0)
[2019-09-01] MEDS: NICOTINE 21 MG/24 HOURS TOPICAL PATCH TD SCH (10:05)
[2019-09-01] MEDS: PRENATAL VITAMINS W/ FOLIC ACID TABLET (FP) PO SCH (10:05)
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
[2019-09-01 10:15] LABS: BILIRUBIN,TOTAL 0.8 mg/dL (0.2-1); BLOOD UREA NITROGEN 11.6 mg/dL (7-18); CALCIUM 9.8 mg/dL (8.5-10.1); CREATININE 0.8 mg/dL (0.55-1.3); POTASSIUM 4.2 mmol/L (3.5-5.1); TOT PROT 7.8 g/dl (6.4-8.2)
[2019-09-01] MEDS: chlorproMAZINE HCL 100 MG TABLET PO SCH ×2 (11:04→22:32)
[2019-09-01] MEDS ORDERED: COLLOIDAL OATMEAL 1 BAR EACH TP PRN (11:59)
--- NOTE | 2019-09-01 12:04 | PN ---
[facility] CIWA - CIWA Score Nausea/Vomitin-Mild Nausea/No Vomiting Muscle Tremors: 3 Anxiety: 3 Agitation: 2 Paroxysmal Sweats: 2 Orientation: 0-Oriented Tacttile Disturbances: 0-None Auditory Disturbances: 1-Very Mild Visual Disturbances: 0-None Headache: 0-None Present CIWA-Ar Total Score: 12 [facility] Progress Note (SOAP) Subjective: doing well with librium detox regimen received methadone 40 mg po today feeling better showered ambulating on hallway social with peers in day room Objective: 09/01/19 12:03 Vital Signs Temperature 98.5 F 09/01/19 09:16 Pulse Rate 79 09/01/19 09:16 Respiratory Rate 18 09/01/19 09:16 Blood Pressure 140/96 09/01/19 09:16 O2 Sat by Pulse Oximetry (%) Laboratory Last Values WBC 5.1 K/mm3 (4.0-10.0) 09/01/19 08:15 RBC 4.54 M/mm3 (4.00-5.60) 09/01/19 08:15 Hgb 13.8 GM/dL (11.7-16.9) 09/01/19 08:15 Hct 41.9 % (35.4-49) 09/01/19 08:15 MCV 92.4 fl (80-96) 09/01/19 08:15 MCH 30.4 pg (25.7-33.7) 09/01/19 08:15 MCHC 32.9 g/dl (32.0-35.9) 09/01/19 08:15 RDW 14.4 % (11.9-15.9) 09/01/19 08:15 Plt Count 270 K/MM3 (134-434) 09/01/19 08:15 MPV 9.0 fl (7.5-11.1) 09/01/19 08:15 Sodium 139 mmol/L (136-145) 09/01/19 08:15 Potassium 4.2 mmol/L (3.5-5.1) 09/01/19 08:15 Chloride 100 mmol/L (98-107) 09/01/19 08:15 Carbon Dioxide 30 mmol/L (21-32) 09/01/19 08:15 Anion Gap 8 MMOL/L (8-16) 09/01/19 08:15 BUN 11.6 mg/dL (7-18) 09/01/19 08:15 Creatinine 0.8 mg/dL (0.55-1.3) 09/01/19 08:15 Est GFR (CKD-EPI)AfAm 115.74 09/01/19 08:15 Est GFR (CKD-EPI)NonAf 99.86 09/01/19 08:15 Random Glucose 148 mg/dL (74-106) H 09/01/19 08:15 Calcium 9.8 mg/dL (8.5-10.1) 09/01/19 08:15 Total Bilirubin 0.8 mg/dL (0.2-1) 09/01/19 08:15 AST 52 U/L (15-37) H 09/01/19 08:15 ALT 85 U/L (13-61) H 09/01/19 08:15 Alkaline Phosphatase 113 U/L (45-117) 09/01/19 08:15 Total Protein 7.8 g/dl (6.4-8.2) 09/01/19 08:15 Albumin 4.0 g/dl (3.4-5.0) 09/01/19 08:15 lab noted Assessment: 09/01/19 12:04 alcohol withdrawal sx Plan: continue librium detox regimen
[2019-09-01] MEDS: MINERAL OIL/PETROLAT/WATER TOPICAL CREAM 113 GM JAR TP SCH ×2 (12:15→22:32)
[2019-09-01] MEDS ORDERED: SUVOREXANT 10 MG TABLET PO PRN (22:00)
[2019-09-01] MEDS: THIAMINE HCL 100 MG TABLET (FP) PO SCH (22:33)
[2019-09-02] MEDS: chlordiazePOXIDE HCL 25 MG CAPSULE PO SCH ×3 (05:29→17:56)
[2019-09-02] MEDS: METHADONE HCL 40 MG DISPERSABLE TABLET PO SCH (05:30)
[2019-09-02] MEDS: chlorproMAZINE HCL 100 MG TABLET PO SCH (10:16)
[2019-09-02] MEDS: PRENATAL VITAMINS W/ FOLIC ACID TABLET (FP) PO SCH (10:16)
[2019-09-02] MEDS: MINERAL OIL/PETROLAT/WATER TOPICAL CREAM 113 GM JAR TP SCH (10:17)
[2019-09-02] MEDS: NICOTINE 21 MG/24 HOURS TOPICAL PATCH TD SCH (10:17)
--- NOTE | 2019-09-02 14:42 | PN ---
[facility] CIWA - CIWA Score Nausea/Vomitin-No Nausea/No Vomiting Muscle Tremors: 3 Anxiety: 3 Agitation: 2 Paroxysmal Sweats: 2 Orientation: 0-Oriented Tacttile Disturbances: 0-None Auditory Disturbances: 0-None Visual Disturbances: 0-None Headache: 0-None Present CIWA-Ar Total Score: 10 [facility] Progress Note (SOAP) Subjective: Anxious, Tremors, Sweating. Patient reports That Current withdrawal Detox Symptoms in General Are Subsiding in Severity. Objective: PATIENT A & O X 3, OBSERVED AMBULATING ON DETOX UNIT UNASSISTED. IN NO ACUTE DISTRESS. 09/02/19 14:43 Vital Signs Temperature 97.6 F 09/02/19 09:02 Pulse Rate 94 H 09/02/19 09:02 Respiratory Rate 20 09/02/19 09:02 Blood Pressure 124/89 09/02/19 09:02 O2 Sat by Pulse Oximetry (%) Laboratory Tests 09/01/19 09/01/19 09/01/19 08:15 08:15 08:15 WBC 5.1 RBC 4.54 Hgb 13.8 Hct 41.9 MCV 92.4 MCH 30.4 MCHC 32.9 RDW 14.4 Plt Count 270 MPV 9.0 Sodium 139 Potassium 4.2 Chloride 100 Carbon Dioxide 30 Anion Gap 8 BUN 11.6 Creatinine 0.8 Est GFR (CKD-EPI)AfAm 115.74 Est GFR (CKD-EPI)NonAf 99.86 Random Glucose 148 H Calcium 9.8 Total Bilirubin 0.8 AST 52 H ALT 85 H Alkaline Phosphatase 113 Total Protein 7.8 Albumin 4.0 RPR Titer Nonreactive LABS NOTED. PATIENT HAS HAD ELEVATED AST AND ALT LEVELS ON PREVIOUS ADMISSIONS. 09/02/19 14:45 Assessment: 09/02/19 14:44 WITHDRAWAL SYMPTOMS. HYPERGLYCEMIA. ELEVATED AST LEVEL. ELEVATED ALT LEVEL. 09/02/19 14:45 Plan: CONTINUE DETOX. INCREASE DAILY PO WATER INTAKE. FASTING GLUCOSE LEVEL ORDERED FOR TOMORROW AM FOR ELEVATED RANDOM GLUCOSE LEVEL NOTED ON DETOX ADMISSION LABORATORY ASSESSMENT.
[2019-09-02 15:25] VITALS: BP 164/98; PULSE 117; TEMP 97.7
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
[2019-09-03] MEDS ORDERED: chlordiazePOXIDE HCL 10 MG CAPSULE PO PRN
[2019-09-03] MEDS ORDERED: chlordiazePOXIDE HCL 10 MG CAPSULE PO SCH (05:00)
[2019-09-04] MEDS ORDERED: chlordiazePOXIDE HCL 10 MG CAPSULE PO SCH (05:00)
[2019-09-05] MEDS ORDERED: chlordiazePOXIDE HCL 10 MG CAPSULE PO ONE (05:00)
== END 2019-09-02 16:02 | disposition home or self-care (01) | DRG 773 ==
LOC: YASAS 12:59 → Y3N 17:36
PROVIDERS: ADMIT Allergy & Immunology; ATTEND Allergy & Immunology
PROC: HZ2ZZZZ Detoxification Services for Substance Abuse Treatment (ICD-10-PCS; principal; 2019-08-31)
DX: F10.230 Alcohol dependence with withdrawal, uncomplicated (principal); F11.20 Opioid dependence, uncomplicated; F12.20 Cannabis dependence, uncomplicated; F17.210 Nicotine dependence, cigarettes, uncomplicated; F51.01 Primary insomnia; F91.8 Other conduct disorders; F25.9 Schizoaffective disorder, unspecified; F19.24 Other psychoactive substance dependence with psychoactive substance-induced mood disorder; F20.9 Schizophrenia, unspecified; F31.9 Bipolar disorder, unspecified; R74.0 Nonspecific elevation of levels of transaminase and lactic acid dehydrogenase [LDH]; R73.9 Hyperglycemia, unspecified; B18.2 Chronic viral hepatitis C; S09.90XA Unspecified injury of head, initial encounter; R51 Headache; Z91.013 Allergy to seafood; Z91.048 Other nonmedicinal substance allergy status; Y04.0XXA Assault by unarmed brawl or fight, initial encounter; Y93.9 Activity, unspecified; Y92.239 Unspecified place in hospital as the place of occurrence of the external cause
CPT/HCPCS: 36415; 80053; 85027; 86593

== ENCOUNTER 2019-12-18 20:07 | Inpatient (IN) | payer OTHER ==
[2019-12-18 21:15] VITALS: BMI 27.1
--- NOTE | 2019-12-18 22:25 | HP ---
CIWA Score Nausea/Vomitin-No Nausea/No Vomiting Muscle Tremors: None Anxiety: 2 Agitation: 2 Paroxysmal Sweats: 3 Orientation: 2-Disoriented Date<2 days Tacttile Disturbances: 0-None Auditory Disturbances: 0-None Visual Disturbances: 3-Moderate Sensitivity (to light) Headache: 0-None Present CIWA-Ar Total Score: 12 - Admission Criteria OASAS Guidelines: Admission for Medically Managed Detox: Requires at least one of the followin. CIWA greater than 12 2. Seizures within the past 24 hours 3. Delirium tremens within the past 24 hours 4. Hallucinations within the past 24 hours 5. Acute intervention needed for co occurring medical disorder 6. Acute intervention needed for co occurring psychiatric disorder 7. Severe withdrawal that cannot be handled at a lower level of care (continued vomiting, continued diarrhea, abnormal vital signs) requiring intravenous medication and/or fluids 8. Patient presents the following: CIWA greater than 12, Acute intervention needed for co-occurring med or psych disorder (cleared by [facility] today after presenting there with intoxication w/ si. noted on dc papers) Admission Criteria Met: Admission criteria met Admitting History and Physical - Past Medical History Hepatobiliary: Yes: Hepatitis C (completed treatment at [facility]) Psych: Yes: Anxiety, Bipolar, Depression - Past Surgical History Past Surgical History: Yes: None - Smoking History Smoking history: Current every day smoker Have you smoked in the past 12 months: Yes Aproximately how many cigarettes per day: 5 - Alcohol/Substance Use Hx Alcohol Use: Yes - Social History ADL: Independent History of Recent Travel: No Admission ROS S - HPI Chief Complaint: alcohol detox Allergies/Adverse Reactions: Allergies Allergy/AdvReac Type Severity Reaction Status Date / Time fish derived [Fish derived] Allergy Intermediate Swelling Verified 08/31/19 15: 04 iodine [Iodine] Allergy Intermediate Verified 08/31/19 15:04 History of Present Illness: HERE FOR ALCOHOL DETOX. CLIENT WAS REFERRED BY [facility] AFTER PRESENTING THERE WITH INTOXICATION AND SI EARLIER. CLIENT HAS SINCE BEEN CLEARED AND REFERRED. HE PRESENTS WITH C/O WITHDRAWAL SX'S. REPORTS HAS A DRINK ON HIS WAY HERE TO HELP WITH WITHDRAWAL SX'S. 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 REPORTS MANY BLACKOUTS, DENIES SEIZURE D/O. HE PRESENTLY DENIES SI/ HI/AVH. HE IS ALSO ON MMTP AT [facility] WITH A REPORTED DOSE OF 40 MG LDM 1 DAY AGO. DENIES HX/O OVERDOSE OF IVDU. DENIES ANY CLEAN TIME IN THE PAST 1 YEAR. HOMELESS , UNEMPLOYED, DENIES LEGals Exam Limitations: No Limitations - Ebola screening Have you traveled outside of the country in the last 21 days: No Have you had contact with anyone from an Ebola affected area: No Have you been sick,other than usual withdrawal symptoms: No Do you have a fever: No - Review of Systems Constitutional: Chills, Loss of Appetite, Night Sweats, Changes in sleep EENT: reports: No Symptoms Reported Respiratory: reports: No Symptoms reported Cardiac: reports: No Symptoms Reported GI: reports: Poor Fluid Intake : reports: No Symptoms Reported Musculoskeletal: reports: No Symptoms Reported Integumentary: reports: No Symptoms Reported Neuro: reports: No Symptoms reported Endocrine: reports: No Symptoms Reported Hematology: reports: No Symptoms Reported Psychiatric: reports: Anxious, Depressed, other (BIPOLAR/SCHIZOPHRENIA) Other Systems: Reviewed and Negative Patient History - Patient Medical History Hx Anemia: No Hx Asthma: No Hx Chronic Obstructive Pulmonary Disease (COPD): No Hx Cancer: No Hx Cardiac Disorders: No Hx Congestive Heart Failure: No Hx Hypertension: No Hx Hypercholesterolemia: No Hx Pacemaker: No HX Cerebrovascular Accident: No Hx Seizures: No Hx Dementia: No Hx Diabetes: No Hx Gastrointestinal Disorders: No Hx Liver Disease: No Hx Genitourinary Disorders: No Hx Sexually Transmitted Disorders: No Hx Renal Disease (ESRD): No Hx Thyroid Disease: No Hx Human Immunodeficiency Virus (HIV): No Hx Hepatitis C: Yes (treatment) Hx Depression: Yes Hx Suicide Attempt: No (pt denies) Hx Bipolar Disorder: Yes Hx Schizophrenia: No Other Medical History: DENIES - Patient Surgical History Past Surgical History: No Hx Neurologic Surgery: No Hx Cataract Extraction: No Hx Cardiac Surgery: No Hx Lung Surgery: No Hx Breast Surgery: No Hx Breast Biopsy: No Hx Abdominal Surgery: No Hx Appendectomy: No Hx Cholecystectomy: No Hx Genitourinary Surgery: No Hx Section: No Hx Orthopedic Surgery: No Anesthesia Reaction: No - PPD History Previous Implant?: Yes Documented Results: Negative w/proof Implanted On Prior [facility] Admission?: Yes Date: 08/18/19 Results: 0MM PPD to be Administered?: No - Smoking Cessation Smoking history: Current every day smoker Have you smoked in the past 12 months: Yes Aproximately how many cigarettes per day: 10 Cigars Per Day: 0 Hx Chewing Tobacco Use: No Initiated information on smoking cessation: Yes 'Breaking Loose' booklet given: 12/18/19 - Substance & Tx. History Hx Alcohol Use: Yes Hx Substance Use: Yes Substance Use Type: Heroin, Prescribed (MTD 40 MG) Hx Substance Use Treatment: Yes ([facility]) - Substances abused Alcohol Substance route: Oral Frequency: Daily Amount used: Vodka 3 pints Age of first use: 10 Date of last use: 12/18/19 (2 PINTS) Admission Physical Exam [facility] - Vital Signs Vital Signs: Vital Signs - 24 hr 12/18/19 12/18/19 20:58 21:41 Temperature 97.4 F L 97.4 F L Pulse Rate 81 81 Respiratory 18 18 Rate Blood Pressure 124/78 124/78 - Physical General Appearance: Yes: Mild Distress, Irritable, Anxious HEENTM: Yes: EOMI, Normocephalic, Normal Voice, SIERRA, Pharynx Normal, Other ( POOR DENTITION MISSING TEETH) Respiratory: Yes: Chest Non-Tender, Lungs Clear, Normal Breath Sounds, No Respiratory Distress Neck: Yes: No masses,lesions,Nodules, Supple, Trachea in good position Breast: Yes: Breasts Symetrical Cardiology: Yes: Regular Rhythm, S1, S2, Tachycardia Abdominal: Yes: Normal Bowel Sounds, Non Tender, Soft Genitourinary: Yes: Within Normal Limits Back: Yes: Normal Inspection Musculoskeletal: Yes: full range of Motion, Gait Steady Extremities: Yes: Normal Capillary Refill, Normal Range of Motion, Non-Tender Neurological: Yes: Fully Oriented, Alert, Motor Strength 5/5, Normal Mood/Affect Integumentary: Yes: Warm, Other (FLUSHED) Lymphatic: Yes: Within Normal Limits - Diagnostic (1) Homeless Current Visit: Yes Status: Suspected Comment: REPORTED (2) Alcohol dependence with uncomplicated withdrawal Current Visit: Yes Status: Acute (3) Substance induced mood disorder Current Visit: Yes Status: Acute (4) Methadone maintenance therapy patient Current Visit: Yes Status: Chronic Comment: HELP (5) Nicotine dependence Current Visit: Yes Status: Chronic Qualifiers: Nicotine product type: cigarettes Substance use status: uncomplicated Qualified Code(s): F17.210 - Nicotine dependence, cigarettes, uncomplicated Cleared for Admission [facility] - Detox or Rehab [facility] Level of Care: Medically Managed Detox Regimen/Protocol: Librium Claeared for Rehab Admission: No Breathalyzer - Breathalyzer Breathalyzer: 0.064 Urine Drug Screen - Test Device Lot number: [id number] Expiration date: 10/03/21 - Control Is test valid?: Yes - Results Drug screen NEGATIVE: No Urine drug screen results: FEN-Fentanyl, MOP-Opiates, MTD-Methadone Inpatient Rehab Admission - Rehab Decision to Admit Inpatient rehab admission?: No
[2019-12-18] MEDS ORDERED: chlordiazePOXIDE HCL 25 MG CAPSULE PO PRN (22:28)
[2019-12-18] MEDS ORDERED: MAGNESIUM HYDROX 2400MG/30ML ORAL SUSPENSION 30 ML CUP PO PRN (22:28)
[2019-12-18] MEDS ORDERED: ONDANSETRON *ODT* 4 MG TABLET SL PRN (22:28)
[2019-12-18] MEDS ORDERED: DICYCLOMINE HCL 10 MG CAPSULE PO PRN (22:28)
[2019-12-18] MEDS ORDERED: hydrOXYzine PAMOATE 25 MG CAPSULE (FP) PO PRN (22:28)
[2019-12-18] MEDS ORDERED: MENTHOL/PHENOL 1 EACH UD MM PRN (22:28)
[2019-12-18] MEDS ORDERED: NICOTINE POLACRILEX 2 MG GUM BUC PRN (22:28)
[2019-12-18] MEDS ORDERED: P-EPHED 60MG/TRIPROLIDI 2.5MG TABLET PO PRN (22:28)
[2019-12-18] MEDS ORDERED: MAGNESIUM CITRATE 300 ML BOTTLE PO PRN (22:28)
[2019-12-18] MEDS ORDERED: BISMUTH SUBSALICYLATE 524 MG/30 ML UD PO PRN (22:28)
[2019-12-18] MEDS ORDERED: ACETAMINOPHEN 325 MG TABLET (FP) PO PRN ×2 (22:28)
[2019-12-18] MEDS ORDERED: IBUPROFEN 400 MG TABLET (FP) PO PRN (22:28)
[2019-12-18] MEDS ORDERED: METHOCARBAMOL 500 MG TABLET PO PRN (22:28)
[2019-12-18] MEDS ORDERED: guaiFENesin 200 MG/10 ML 10 ML UNIT-DOSE CUPS PO PRN (22:28)
[2019-12-18] MEDS ORDERED: MAG HYDROX/AL HYDROX/SIMETH 30 ML UNIT-DOSE CUP PO PRN (22:28)
[2019-12-18] MEDS: chlordiazePOXIDE HCL 25 MG CAPSULE PO SCH (23:24)
[2019-12-19] MEDS: chlordiazePOXIDE HCL 25 MG CAPSULE PO SCH ×4 (05:58→22:38)
--- NOTE | 2019-12-19 09:45 | EKG ---
Test Reason : Blood Pressure : / mmHG Vent. Rate : 077 BPM Atrial Rate : 077 BPM P-R Int : 144 ms QRS Dur : 084 ms QT Int : 372 ms P-R-T Axes : 047 031 027 degrees QTc Int : 420 ms NORMAL SINUS RHYTHM NORMAL ECG WHEN COMPARED WITH ECG OF 24-AUG-2018 23:41, NO SIGNIFICANT CHANGE WAS FOUND Confirmed by Lia Shaw ([id number]) on 12/19/2019 9:45:18 AM Referred By: Naga Evans Confirmed By:Lia Shaw
[2019-12-19] MEDS: PRENATAL VITAMINS W/ FOLIC ACID TABLET (FP) PO SCH (09:57)
[2019-12-19] MEDS: METHADONE HCL 40 MG DISPERSABLE TABLET PO SCH (09:57)
[2019-12-19] MEDS: NICOTINE 14 MG/24 HOURS TOPICAL PATCH TD SCH (09:58)
[2019-12-19] MEDS: NICOTINE 21 MG/24 HOURS TOPICAL PATCH TD SCH (09:58)
[2019-12-19 10:05] LABS: ALBUMIN 3.3 g/dl (3.4-5.0); BILIRUBIN,TOTAL 0.2 mg/dL (0.2-1); BLOOD UREA NITROGEN 13.4 mg/dL (7-18); CALCIUM 8.7 mg/dL (8.5-10.1); CREATININE 0.8 mg/dL (0.55-1.3); POTASSIUM 4.2 mmol/L (3.5-5.1); TOT PROT 6.6 g/dl (6.4-8.2)
[2019-12-19 10:15] LABS: MCH 30.6 pg (25.7-33.7); MCHC 33.5 g/dl (32.0-35.9); MEAN CELL VOLUME 91.5 fl (80-96); MEAN PLT VOLUME 8.9 fl (7.5-11.1); PLATELET COUNT 238 K/MM3 (134-434); RBC 3.94 M/mm3 (4.00-5.60); RDW 15.3 % (11.9-15.9); WHITE BLOOD COUNT 5.4 K/mm3 (4.0-10.0)
--- NOTE | 2019-12-19 14:04 | CONSULT ---
[facility] Psychiatric Consult - Data Date of interview: 12/19/19 Admission source: [facility] Identifying data: Referred by [facility] for detoxification treatment. One of multiple admissions to [facility] for this 54 y/o male. ANN issues : opioid, cannabis, alcohol, nicotine. Patient is , a father of two, domiciled (lives with sistr), unemployed and supported on SSI benefits. Substance Abuse History: Discussed with patient. Details in current [facility] report as follows : Smoking history: Current every day smoker. Have you smoked in the past 12 months: Yes. Aproximately how many cigarettes per day: 10. Cigars Per Day: 0. Hx Chewing Tobacco Use: No. Initiated information on smoking cessation : Yes. 'Breaking Loose' booklet given: 12/18/19. - Substance & Tx. History. Hx Alcohol Use: Yes. Hx Substance Use: Yes. Substance Use Type: Heroin, Prescribed (MTD 40 MG). Hx Substance Use Treatment: Yes ([facility]). - Substances abused. Alcohol. Substance route: Oral. Frequency: Daily. Amount used: Vodka 3 pints. Age of first use: 10. Date of last use: 12/18/19 (2 PINTS) Medical History: Consistent with hepatitis C (treated). Psychiatric History: Extensive history of multiple psychiatric hospitalizations (onset of mental illness : early 20's). Patient reports admissions to several institutions : [facility], [facility], [facility], [facility], [place] and facilities in [facility]. Diagnosed with Paranoid Schizophrenia. Mr Elton longoadaledges previous trials of various antipsychotic medications. " Only thorazine works for me ". He is currently prescribed thorazine 100 mg po bid by his outpatient psychiatrist from [facility] clinic. Patient is also on methadone maintenance (40 mg/day) at [facility] in [facility] ([facility]). Records indicate a history of multiple suicide attempts (most recent had occurred eight years ago via overdose with pills). Physical/Sexual Abuse/Trauma History: Patient denies. Additional Comment: Urine drug screen results: FEN-Fentanyl, MOP-Opiates, MTD- Methadone. Noted. Mental Status Exam - Mental Status Exam Alert and Oriented to: Time, Place, Person Cognitive Function: Good Patient Appearance: Well Groomed Mood: Withdrawn, Anxious, Hopeful Affect: Mood Congruent, Constricted Patient Behavior: Fatigued, Appropriate, Cooperative Speech Pattern: Clear, Appropriate Voice Loudness: Normal Thought Process: Intact, Goal Oriented Thought Disorder: Not Present Hallucinations: Denies Suicidal Ideation: Denies Homicidal Ideation: Denies Insight/Judgement: Poor Sleep: Poorly, Difficulty falling asleep Appetite: Good Gait/Station: Normal Psychiatric Findings - Problem List ([place] 1, 2,3) (1) Alcohol dependence with uncomplicated withdrawal Current Visit: Yes Status: Acute (2) Opioid dependence on agonist therapy Current Visit: Yes Status: Chronic (3) Cannabis dependence Current Visit: Yes Status: Chronic (4) Nicotine dependence Current Visit: Yes Status: Chronic Qualifiers: Nicotine product type: cigarettes Substance use status: uncomplicated Qualified Code(s): F17.210 - Nicotine dependence, cigarettes, uncomplicated (5) Substance induced mood disorder Current Visit: Yes Status: Chronic (6) Schizophrenia Current Visit: Yes Status: Chronic Qualifiers: Schizophrenia type: unspecified Qualified Code(s): F20.9 - Schizophrenia, unspecified Comment: As per self-report and existing records. - Initial Treatment Plan Initial Treatment Plan: Psychoeducation. Sleep hygiene. Detoxification in progress. Resumed : thorazine 50 mg po bid (reduced). Side effects/benefits are discussed with the patient. Mr Conde is in agreement with this plan of care. Observation.
--- NOTE | 2019-12-19 16:08 | PN ---
[facility] CIWA - CIWA Score Nausea/Vomitin-Mild Nausea/No Vomiting Muscle Tremors: 3 Anxiety: 3 Agitation: 1-Slight > Activity Paroxysmal Sweats: 2 Orientation: 0-Oriented Tacttile Disturbances: 0-None Auditory Disturbances: 0-None Visual Disturbances: 1-Very Mild Sensitivity Headache: 0-None Present CIWA-Ar Total Score: 11 S Progress Note (SOAP) Subjective: 54 years old male admitted on 12/18/19 for alcohol withdrawal sx mangement treating with [facility]um detox regiment feeling ok today ate breakfast in day room social with peers patient determines to maintain sober attends behavior and psychosocial therapies groups and meetings Objective: 12/19/19 16:09 Vital Signs Temperature 98.7 F 12/19/19 12:42 Pulse Rate 70 12/19/19 12:42 Respiratory Rate 17 12/19/19 12:42 Blood Pressure 154/98 12/19/19 12:42 O2 Sat by Pulse Oximetry (%) Laboratory Last Values WBC 5.4 K/mm3 (4.0-10.0) 12/19/19 08:00 RBC 3.94 M/mm3 (4.00-5.60) L 12/19/19 08:00 Hgb 12.0 GM/dL (11.7-16.9) 12/19/19 08:00 Hct 36.0 % (35.4-49) 12/19/19 08:00 MCV 91.5 fl (80-96) 12/19/19 08:00 MCH 30.6 pg (25.7-33.7) 12/19/19 08:00 MCHC 33.5 g/dl (32.0-35.9) 12/19/19 08:00 RDW 15.3 % (11.9-15.9) 12/19/19 08:00 Plt Count 238 K/MM3 (134-434) 12/19/19 08:00 MPV 8.9 fl (7.5-11.1) 12/19/19 08:00 Sodium 139 mmol/L (136-145) 12/19/19 08:00 Potassium 4.2 mmol/L (3.5-5.1) 12/19/19 08:00 Chloride 105 mmol/L (98-107) 12/19/19 08:00 Carbon Dioxide 28 mmol/L (21-32) 12/19/19 08:00 Anion Gap 6 MMOL/L (8-16) L 12/19/19 08:00 BUN 13.4 mg/dL (7-18) 12/19/19 08:00 Creatinine 0.8 mg/dL (0.55-1.3) 12/19/19 08:00 Est GFR (CKD-EPI)AfAm 115.74 12/19/19 08:00 Est GFR (CKD-EPI)NonAf 99.86 12/19/19 08:00 Random Glucose 96 mg/dL (74-106) 12/19/19 08:00 Calcium 8.7 mg/dL (8.5-10.1) 12/19/19 08:00 Total Bilirubin 0.2 mg/dL (0.2-1) 12/19/19 08:00 AST 42 U/L (15-37) H 12/19/19 08:00 ALT 55 U/L (13-61) 12/19/19 08:00 Alkaline Phosphatase 94 U/L (45-117) 12/19/19 08:00 Total Protein 6.6 g/dl (6.4-8.2) 12/19/19 08:00 Albumin 3.3 g/dl (3.4-5.0) L 12/19/19 08:00 RPR Titer Nonreactive (NONREACTIVE) 12/19/19 08:00 lab noted bp elevation 12/19/19 16:11 begin amlodipine 10 mg po daily Assessment: 12/19/19 16:12 alcohol withdrawal Plan: librium regiment
[2019-12-19] MEDS ORDERED: cloNIDine HCL 0.1 MG TABLET PO PRN (16:10)
[2019-12-19] MEDS ORDERED: chlorproMAZINE HCL 100 MG TABLET PO SCH (22:00)
[2019-12-19] MEDS: chlorproMAZINE HCL 25 MG TABLET PO SCH (22:38)
[2019-12-19] MEDS: amLODIPine BESYLATE 10 MG TABLET (FP) PO SCH (22:38)
[2019-12-19] MEDS: THIAMINE HCL 100 MG TABLET (FP) PO SCH (22:38)
[2019-12-20] MEDS: chlordiazePOXIDE HCL 25 MG CAPSULE PO SCH ×4 (05:40→22:53)
[2019-12-20] MEDS: METHADONE HCL 40 MG DISPERSABLE TABLET PO SCH (05:40)
[2019-12-20] MEDS: chlorproMAZINE HCL 25 MG TABLET PO SCH ×2 (10:25→22:53)
[2019-12-20] MEDS: PRENATAL VITAMINS W/ FOLIC ACID TABLET (FP) PO SCH (10:26)
[2019-12-20] MEDS: NICOTINE 21 MG/24 HOURS TOPICAL PATCH TD SCH (10:27)
[2019-12-20] MEDS: NICOTINE 14 MG/24 HOURS TOPICAL PATCH TD SCH (10:27)
--- NOTE | 2019-12-20 13:33 | PN ---
S CIWA - CIWA Score Nausea/Vomitin-No Nausea/No Vomiting Muscle Tremors: 2 Anxiety: 3 Agitation: 0-Normal Activity Paroxysmal Sweats: 1-Minimal Palms Moist Orientation: 0-Oriented Tacttile Disturbances: 0-None Auditory Disturbances: 0-None Visual Disturbances: 1-Very Mild Sensitivity Headache: 1-Very Mild CIWA-Ar Total Score: 8 S Progress Note (SOAP) Subjective: 54 years old male admitted on 12/18/19 for alcohol withdrawal sx management treating with librium detox regiment feeling ok today ate breakfast and lunch in day room attends behavior and psychosocial therapies groups and meetings while in detox patient determines to maintain sober Objective: 12/20/19 13:34 Vital Signs Temperature 98.5 F 12/20/19 12:42 Pulse Rate 89 12/20/19 12:42 Respiratory Rate 18 12/20/19 12:42 Blood Pressure 148/87 12/20/19 12:42 O2 Sat by Pulse Oximetry (%) Laboratory Last Values WBC 5.4 K/mm3 (4.0-10.0) 12/19/19 08:00 RBC 3.94 M/mm3 (4.00-5.60) L 12/19/19 08:00 Hgb 12.0 GM/dL (11.7-16.9) 12/19/19 08:00 Hct 36.0 % (35.4-49) 12/19/19 08:00 MCV 91.5 fl (80-96) 12/19/19 08:00 MCH 30.6 pg (25.7-33.7) 12/19/19 08:00 MCHC 33.5 g/dl (32.0-35.9) 12/19/19 08:00 RDW 15.3 % (11.9-15.9) 12/19/19 08:00 Plt Count 238 K/MM3 (134-434) 12/19/19 08:00 MPV 8.9 fl (7.5-11.1) 12/19/19 08:00 Sodium 139 mmol/L (136-145) 12/19/19 08:00 Potassium 4.2 mmol/L (3.5-5.1) 12/19/19 08:00 Chloride 105 mmol/L (98-107) 12/19/19 08:00 Carbon Dioxide 28 mmol/L (21-32) 12/19/19 08:00 Anion Gap 6 MMOL/L (8-16) L 12/19/19 08:00 BUN 13.4 mg/dL (7-18) 12/19/19 08:00 Creatinine 0.8 mg/dL (0.55-1.3) 12/19/19 08:00 Est GFR (CKD-EPI)AfAm 115.74 12/19/19 08:00 Est GFR (CKD-EPI)NonAf 99.86 12/19/19 08:00 Random Glucose 96 mg/dL (74-106) 12/19/19 08:00 Calcium 8.7 mg/dL (8.5-10.1) 12/19/19 08:00 Total Bilirubin 0.2 mg/dL (0.2-1) 12/19/19 08:00 AST 42 U/L (15-37) H 12/19/19 08:00 ALT 55 U/L (13-61) 12/19/19 08:00 Alkaline Phosphatase 94 U/L (45-117) 12/19/19 08:00 Total Protein 6.6 g/dl (6.4-8.2) 12/19/19 08:00 Albumin 3.3 g/dl (3.4-5.0) L 12/19/19 08:00 RPR Titer Nonreactive (NONREACTIVE) 12/19/19 08:00 lab noted 12/20/19 13:35 bp elevation begin lisinopril 10 mg po daily Assessment: 12/20/19 13:36 alcohol withdrawal Plan: librium regiment
[2019-12-20] MEDS: LISINOPRIL 10 MG TABLET (FP) PO SCH (14:26)
[2019-12-20 20:32] LABS: PH,URINE 8.5 (5.0-8.0); URINE APPEARANCE CLEAR; URINE BILIRUBIN NEGATIVE (NEGATIVE); URINE COLOR YELLOW; URINE GLUCOSE (UA) NEGATIVE (NEGATIVE); URINE KETONE NEGATIVE (NEGATIVE); URINE LEUK ESTERASE NEGATIVE (NEGATIVE); URINE NITRITE NEGATIVE (NEGATIVE); URINE PROTEIN NEGATIVE (NEGATIVE); URINE UROBILINOGEN 0.2 mg/dL (0.2-1.0)
[2019-12-20] MEDS: MELATONIN 5 MG TABLETS PO PRN (22:53)
[2019-12-20] MEDS: amLODIPine BESYLATE 10 MG TABLET (FP) PO SCH (22:53)
[2019-12-20] MEDS: THIAMINE HCL 100 MG TABLET (FP) PO SCH (22:53)
[2019-12-21] MEDS ORDERED: chlordiazePOXIDE HCL 10 MG CAPSULE PO PRN
[2019-12-21] MEDS: chlordiazePOXIDE HCL 10 MG CAPSULE PO SCH ×4 (06:21→22:44)
[2019-12-21] MEDS: METHADONE HCL 40 MG DISPERSABLE TABLET PO SCH (06:21)
[2019-12-21] MEDS: PRENATAL VITAMINS W/ FOLIC ACID TABLET (FP) PO SCH (10:12)
[2019-12-21] MEDS: chlorproMAZINE HCL 25 MG TABLET PO SCH ×2 (10:12→22:44)
[2019-12-21] MEDS: LISINOPRIL 10 MG TABLET (FP) PO SCH (10:12)
[2019-12-21] MEDS: NICOTINE 21 MG/24 HOURS TOPICAL PATCH TD SCH (10:13)
[2019-12-21] MEDS: NICOTINE 14 MG/24 HOURS TOPICAL PATCH TD SCH (10:13)
--- NOTE | 2019-12-21 14:25 | PN ---
[facility] CIWA - CIWA Score Nausea/Vomitin-No Nausea/No Vomiting Muscle Tremors: 2 Anxiety: 2 Agitation: 0-Normal Activity Paroxysmal Sweats: 1-Minimal Palms Moist Orientation: 0-Oriented Tacttile Disturbances: 0-None Auditory Disturbances: 0-None Visual Disturbances: 0-None Headache: 0-None Present CIWA-Ar Total Score: 5 S Progress Note (SOAP) Subjective: 54 years old male admitted on 12/18/19 for alcohol withdrawal sx management treating with [facility]um detox regiment feeling ok today ate breakfast in day room social with peers attending groups and meetings patient determines to maintain sober Objective: 12/21/19 14:32 Vital Signs Temperature 98.4 F 12/21/19 12:47 Pulse Rate 94 H 12/21/19 12:47 Respiratory Rate 18 12/21/19 12:47 Blood Pressure 120/80 12/21/19 12:47 O2 Sat by Pulse Oximetry (%) Laboratory Last Values WBC 5.4 K/mm3 (4.0-10.0) 12/19/19 08:00 RBC 3.94 M/mm3 (4.00-5.60) L 12/19/19 08:00 Hgb 12.0 GM/dL (11.7-16.9) 12/19/19 08:00 Hct 36.0 % (35.4-49) 12/19/19 08:00 MCV 91.5 fl (80-96) 12/19/19 08:00 MCH 30.6 pg (25.7-33.7) 12/19/19 08:00 MCHC 33.5 g/dl (32.0-35.9) 12/19/19 08:00 RDW 15.3 % (11.9-15.9) 12/19/19 08:00 Plt Count 238 K/MM3 (134-434) 12/19/19 08:00 MPV 8.9 fl (7.5-11.1) 12/19/19 08:00 Sodium 139 mmol/L (136-145) 12/19/19 08:00 Potassium 4.2 mmol/L (3.5-5.1) 12/19/19 08:00 Chloride 105 mmol/L (98-107) 12/19/19 08:00 Carbon Dioxide 28 mmol/L (21-32) 12/19/19 08:00 Anion Gap 6 MMOL/L (8-16) L 12/19/19 08:00 BUN 13.4 mg/dL (7-18) 12/19/19 08:00 Creatinine 0.8 mg/dL (0.55-1.3) 12/19/19 08:00 Est GFR (CKD-EPI)AfAm 115.74 12/19/19 08:00 Est GFR (CKD-EPI)NonAf 99.86 12/19/19 08:00 Random Glucose 96 mg/dL (74-106) 12/19/19 08:00 Calcium 8.7 mg/dL (8.5-10.1) 12/19/19 08:00 Total Bilirubin 0.2 mg/dL (0.2-1) 12/19/19 08:00 AST 42 U/L (15-37) H 12/19/19 08:00 ALT 55 U/L (13-61) 12/19/19 08:00 Alkaline Phosphatase 94 U/L (45-117) 12/19/19 08:00 Total Protein 6.6 g/dl (6.4-8.2) 12/19/19 08:00 Albumin 3.3 g/dl (3.4-5.0) L 12/19/19 08:00 Urine Color Yellow 12/20/19 14:30 Urine Appearance Clear 12/20/19 14:30 Urine pH 8.5 (5.0-8.0) H D 12/20/19 14:30 Ur Specific [place] 1.018 (1.010-1.035) 12/20/19 14:30 Urine Protein Negative (NEGATIVE) 12/20/19 14:30 Urine Glucose (UA) Negative (NEGATIVE) 12/20/19 14:30 Urine Ketones Negative (NEGATIVE) 12/20/19 14:30 Urine Blood Negative (NEGATIVE) 12/20/19 14:30 Urine Nitrite Negative (NEGATIVE) 12/20/19 14:30 Urine Bilirubin Negative (NEGATIVE) 12/20/19 14:30 Urine Urobilinogen 0.2 mg/dL (0.2-1.0) 12/20/19 14:30 Ur Leukocyte Esterase Negative (NEGATIVE) 12/20/19 14:30 RPR Titer Nonreactive (NONREACTIVE) 12/19/19 08:00 lab noted Assessment: 12/21/19 14:33 alcohol withdrawal Plan: librium regiment
[2019-12-21] MEDS: THIAMINE HCL 100 MG TABLET (FP) PO SCH (22:44)
[2019-12-21] MEDS: amLODIPine BESYLATE 10 MG TABLET (FP) PO SCH (22:44)
[2019-12-22] MEDS: chlordiazePOXIDE HCL 10 MG CAPSULE PO SCH ×2 (06:11→18:37)
[2019-12-22] MEDS: METHADONE HCL 40 MG DISPERSABLE TABLET PO SCH (06:11)
[2019-12-22] MEDS: PRENATAL VITAMINS W/ FOLIC ACID TABLET (FP) PO SCH (10:05)
[2019-12-22] MEDS: chlorproMAZINE HCL 25 MG TABLET PO SCH ×2 (10:05→22:40)
[2019-12-22] MEDS: LISINOPRIL 10 MG TABLET (FP) PO SCH (10:05)
[2019-12-22] MEDS: NICOTINE 14 MG/24 HOURS TOPICAL PATCH TD SCH (10:06)
[2019-12-22] MEDS: NICOTINE 21 MG/24 HOURS TOPICAL PATCH TD SCH (10:06)
--- NOTE | 2019-12-22 14:32 | PN ---
[facility] CIWA - CIWA Score Nausea/Vomitin-No Nausea/No Vomiting Muscle Tremors: 1-None Visible, but [place] Anxiety: 1-Mildly Anxious Agitation: 1-Slight > Activity Paroxysmal Sweats: No Perspiration Orientation: 0-Oriented Tacttile Disturbances: 0-None Auditory Disturbances: 0-None Visual Disturbances: 0-None Headache: 0-None Present CIWA-Ar Total Score: 3 [facility] Progress Note (SOAP) Subjective: 54 years old male admitted on 12/18/19 for alcohol withdrawal sx management treating with librium detox regiment feeling better today less tremor discuss aftercare with staff patient prefers to got [facility] for alcohol recovery Objective: 12/22/19 14:32 Vital Signs Temperature 97.4 F L 12/22/19 12:35 Pulse Rate 82 12/22/19 12:35 Respiratory Rate 18 12/22/19 12:35 Blood Pressure 121/76 12/22/19 12:35 O2 Sat by Pulse Oximetry (%) Laboratory Last Values WBC 5.4 K/mm3 (4.0-10.0) 12/19/19 08:00 RBC 3.94 M/mm3 (4.00-5.60) L 12/19/19 08:00 Hgb 12.0 GM/dL (11.7-16.9) 12/19/19 08:00 Hct 36.0 % (35.4-49) 12/19/19 08:00 MCV 91.5 fl (80-96) 12/19/19 08:00 MCH 30.6 pg (25.7-33.7) 12/19/19 08:00 MCHC 33.5 g/dl (32.0-35.9) 12/19/19 08:00 RDW 15.3 % (11.9-15.9) 12/19/19 08:00 Plt Count 238 K/MM3 (134-434) 12/19/19 08:00 MPV 8.9 fl (7.5-11.1) 12/19/19 08:00 Sodium 139 mmol/L (136-145) 12/19/19 08:00 Potassium 4.2 mmol/L (3.5-5.1) 12/19/19 08:00 Chloride 105 mmol/L (98-107) 12/19/19 08:00 Carbon Dioxide 28 mmol/L (21-32) 12/19/19 08:00 Anion Gap 6 MMOL/L (8-16) L 12/19/19 08:00 BUN 13.4 mg/dL (7-18) 12/19/19 08:00 Creatinine 0.8 mg/dL (0.55-1.3) 12/19/19 08:00 Est GFR (CKD-EPI)AfAm 115.74 12/19/19 08:00 Est GFR (CKD-EPI)NonAf 99.86 12/19/19 08:00 Random Glucose 96 mg/dL (74-106) 12/19/19 08:00 Calcium 8.7 mg/dL (8.5-10.1) 12/19/19 08:00 Total Bilirubin 0.2 mg/dL (0.2-1) 12/19/19 08:00 AST 42 U/L (15-37) H 12/19/19 08:00 ALT 55 U/L (13-61) 12/19/19 08:00 Alkaline Phosphatase 94 U/L (45-117) 12/19/19 08:00 Total Protein 6.6 g/dl (6.4-8.2) 12/19/19 08:00 Albumin 3.3 g/dl (3.4-5.0) L 12/19/19 08:00 Urine Color Yellow 12/20/19 14:30 Urine Appearance Clear 12/20/19 14:30 Urine pH 8.5 (5.0-8.0) H D 12/20/19 14:30 Ur Specific [place] 1.018 (1.010-1.035) 12/20/19 14:30 Urine Protein Negative (NEGATIVE) 12/20/19 14:30 Urine Glucose (UA) Negative (NEGATIVE) 12/20/19 14:30 Urine Ketones Negative (NEGATIVE) 12/20/19 14:30 Urine Blood Negative (NEGATIVE) 12/20/19 14:30 Urine Nitrite Negative (NEGATIVE) 12/20/19 14:30 Urine Bilirubin Negative (NEGATIVE) 12/20/19 14:30 Urine Urobilinogen 0.2 mg/dL (0.2-1.0) 12/20/19 14:30 Ur Leukocyte Esterase Negative (NEGATIVE) 12/20/19 14:30 RPR Titer Nonreactive (NONREACTIVE) 12/19/19 08:00 lab noted Assessment: 12/22/19 14:32 alcohol withdrawal Plan: librium regiment
[2019-12-22] MEDS: THIAMINE HCL 100 MG TABLET (FP) PO SCH (22:40)
[2019-12-22] MEDS: MELATONIN 5 MG TABLETS PO PRN (22:40)
[2019-12-22] MEDS: amLODIPine BESYLATE 10 MG TABLET (FP) PO SCH (22:42)
[2019-12-23] MEDS ORDERED: chlordiazePOXIDE HCL 10 MG CAPSULE PO ONE (05:00)
[2019-12-23] MEDS: METHADONE HCL 40 MG DISPERSABLE TABLET PO SCH (05:47)
[2019-12-23 09:14] VITALS: BP 116/83; PULSE 86; TEMP 98.2
--- NOTE | 2019-12-23 09:48 | DS ---
[facility] Detox Discharge Summary Admission Date: 12/18/19 Discharge Date: 12/23/19 - History Present History: Alcohol Dependence - Physical Exam Results Vital Signs: Vital Signs Temperature 98.2 F 12/23/19 08:45 Pulse Rate 86 12/23/19 08:45 Respiratory Rate 18 12/23/19 08:45 Blood Pressure 116/83 12/23/19 08:45 O2 Sat by Pulse Oximetry (%) Pertinent Admission Physical Exam Findings: PE Gnl: WDWN, in no distress Mentation: nl Gait: steady Skin: dry CIWA: 2 Laboratory Last Values WBC 5.4 K/mm3 (4.0-10.0) 12/19/19 08:00 RBC 3.94 M/mm3 (4.00-5.60) L 12/19/19 08:00 Hgb 12.0 GM/dL (11.7-16.9) 12/19/19 08:00 Hct 36.0 % (35.4-49) 12/19/19 08:00 MCV 91.5 fl (80-96) 12/19/19 08:00 MCH 30.6 pg (25.7-33.7) 12/19/19 08:00 MCHC 33.5 g/dl (32.0-35.9) 12/19/19 08:00 RDW 15.3 % (11.9-15.9) 12/19/19 08:00 Plt Count 238 K/MM3 (134-434) 12/19/19 08:00 MPV 8.9 fl (7.5-11.1) 12/19/19 08:00 Sodium 139 mmol/L (136-145) 12/19/19 08:00 Potassium 4.2 mmol/L (3.5-5.1) 12/19/19 08:00 Chloride 105 mmol/L (98-107) 12/19/19 08:00 Carbon Dioxide 28 mmol/L (21-32) 12/19/19 08:00 Anion Gap 6 MMOL/L (8-16) L 12/19/19 08:00 BUN 13.4 mg/dL (7-18) 12/19/19 08:00 Creatinine 0.8 mg/dL (0.55-1.3) 12/19/19 08:00 Est GFR (CKD-EPI)AfAm 115.74 12/19/19 08:00 Est GFR (CKD-EPI)NonAf 99.86 12/19/19 08:00 Random Glucose 96 mg/dL (74-106) 12/19/19 08:00 Calcium 8.7 mg/dL (8.5-10.1) 12/19/19 08:00 Total Bilirubin 0.2 mg/dL (0.2-1) 12/19/19 08:00 AST 42 U/L (15-37) H 12/19/19 08:00 ALT 55 U/L (13-61) 12/19/19 08:00 Alkaline Phosphatase 94 U/L (45-117) 12/19/19 08:00 Total Protein 6.6 g/dl (6.4-8.2) 12/19/19 08:00 Albumin 3.3 g/dl (3.4-5.0) L 12/19/19 08:00 Urine Color Yellow 12/20/19 14:30 Urine Appearance Clear 12/20/19 14:30 Urine pH 8.5 (5.0-8.0) H D 12/20/19 14:30 Ur Specific [place] 1.018 (1.010-1.035) 12/20/19 14:30 Urine Protein Negative (NEGATIVE) 12/20/19 14:30 Urine Glucose (UA) Negative (NEGATIVE) 12/20/19 14:30 Urine Ketones Negative (NEGATIVE) 12/20/19 14:30 Urine Blood Negative (NEGATIVE) 12/20/19 14:30 Urine Nitrite Negative (NEGATIVE) 12/20/19 14:30 Urine Bilirubin Negative (NEGATIVE) 12/20/19 14:30 Urine Urobilinogen 0.2 mg/dL (0.2-1.0) 12/20/19 14:30 Ur Leukocyte Esterase Negative (NEGATIVE) 12/20/19 14:30 RPR Titer Nonreactive (NONREACTIVE) 12/19/19 08:00 Vital Signs Temperature 98.2 F 12/23/19 08:45 Pulse Rate 86 12/23/19 08:45 Respiratory Rate 18 12/23/19 08:45 Blood Pressure 116/83 12/23/19 08:45 O2 Sat by Pulse Oximetry (%) - Treatment Hospital Course: Detox Protocol Followed (Librium), Detoxed Safely, Responded well, Discharged Condition Good, Rehab Referral Accepted Patient has Accepted a Rehab Referral to: yes - Medication Discharge Medications: Ambulatory Orders Chlorpromazine [Thorazine -] 100 mg PO BID 12/18/19 - Diagnosis (1) Alcohol dependence with uncomplicated withdrawal Current Visit: Yes Status: Acute - AMA Did Patient Leave Against Medical Advice: No (regular discharge)
--- NOTE | 2019-12-23 09:52 | PN ---
[facility] CIWA - CIWA Score Nausea/Vomitin-No Nausea/No Vomiting Muscle Tremors: 1-None Visible, but [place] Anxiety: 0-No Anxiety, at Ease Agitation: 0-Normal Activity Paroxysmal Sweats: No Perspiration Orientation: 0-Oriented Tacttile Disturbances: 0-None Auditory Disturbances: 0-None Visual Disturbances: 1-Very Mild Sensitivity Headache: 0-None Present CIWA-Ar Total Score: 2 S Progress Note (SOAP) Subjective: Feeling well, asking about Rehab Objective: 12/23/19 09:49 PE Gnl: WDWN, in no distress mentation; nl gait; nl Assessment: 12/23/19 09:50 1. Alcohol use disorder 12/23/19 09:51 2. Schizophrenia, seen by Dr. Espaañ, on chlorpromazine Plan: 1. Discharge today 2. Refer to Rehab
[2019-12-23] MEDS: PRENATAL VITAMINS W/ FOLIC ACID TABLET (FP) PO SCH (10:06)
[2019-12-23] MEDS: chlorproMAZINE HCL 25 MG TABLET PO SCH (10:06)
[2019-12-23] MEDS: LISINOPRIL 10 MG TABLET (FP) PO SCH (10:07)
[2019-12-23] MEDS: NICOTINE 14 MG/24 HOURS TOPICAL PATCH TD SCH (10:08)
[2019-12-23] MEDS: NICOTINE 21 MG/24 HOURS TOPICAL PATCH TD SCH (10:08)
== END 2019-12-23 13:14 | disposition other institution (70) | DRG 773 ==
LOC: YASAS 20:07 → Y3N 22:50
PROVIDERS: ADMIT Allergy & Immunology; ATTEND Allergy & Immunology
PROC: HZ2ZZZZ Detoxification Services for Substance Abuse Treatment (ICD-10-PCS; principal; 2019-12-18)
DX: F10.230 Alcohol dependence with withdrawal, uncomplicated (principal); F11.20 Opioid dependence, uncomplicated; F12.20 Cannabis dependence, uncomplicated; F17.210 Nicotine dependence, cigarettes, uncomplicated; F20.9 Schizophrenia, unspecified; F19.24 Other psychoactive substance dependence with psychoactive substance-induced mood disorder; F31.9 Bipolar disorder, unspecified; F41.9 Anxiety disorder, unspecified; I10 Essential (primary) hypertension; Z86.19 Personal history of other infectious and parasitic diseases; Z91.013 Allergy to seafood; Z91.048 Other nonmedicinal substance allergy status; Z59.0 Homelessness
CPT/HCPCS: 36415; 80053; 81003; 85027; 86593; 93005; 93010

== ENCOUNTER 2019-12-23 14:35 | Inpatient (IN) | payer OTHER ==
--- NOTE | 2019-12-23 18:26 | PN ---
[facility] Progress Note Note: Psychiatry Attending's note : Called by nurse for medications orders. Request : seroquel 50 mg po bid. Patient is already known to hand sign writer. From [address] [place] [address].Transferred to [facility] today. Resumed seroquel 50 mg po bid. Continuity of care.
[2019-12-23] MEDS ORDERED: ACETAMINOPHEN 325 MG TABLET (FP) PO PRN (18:31)
[2019-12-23] MEDS ORDERED: P-EPHED 60MG/TRIPROLIDI 2.5MG TABLET PO PRN (18:31)
[2019-12-23] MEDS ORDERED: guaiFENesin 200 MG/10 ML 10 ML UNIT-DOSE CUPS PO PRN (18:31)
[2019-12-23] MEDS ORDERED: LOPERAMIDE HCL 2 MG CAPSULE PO PRN (18:31)
[2019-12-23] MEDS ORDERED: MAGNESIUM CITRATE 300 ML BOTTLE PO PRN (18:31)
[2019-12-23] MEDS ORDERED: NICOTINE POLACRILEX 2 MG GUM BUC PRN (18:31)
[2019-12-23] MEDS ORDERED: IBUPROFEN 400 MG TABLET (FP) PO PRN (18:31)
[2019-12-23] MEDS ORDERED: hydrOXYzine PAMOATE 25 MG CAPSULE (FP) PO PRN (18:31)
[2019-12-23] MEDS ORDERED: MAGNESIUM HYDROX 2400MG/30ML ORAL SUSPENSION 30 ML CUP PO PRN (18:31)
[2019-12-23] MEDS ORDERED: MENTHOL/PHENOL 1 EACH UD MM PRN (18:31)
--- NOTE | 2019-12-23 18:31 | HP ---
[facility] Rehab Assess/Revision - Admission History Admitted to Rehab from: [facility] Date of Admission to Rehab: 12/23/2019 - Findings Detox History & Physical reviewed: Yes Concur with findings: Yes Comments/Additional Findings: Completed alcohol detox and stable for admission to rehab Inpatient Rehab Admission - Rehab Decision to Admit Inpatient rehab admission?: Yes - Initial Determination Are CD services needed?: Yes Free of communicable disease: Yes Not in need of hospitalization: Yes - Rehab Admission Criteria Previous failed treatment: Yes Poor recovery environment: Yes Comorbidities: Yes Lacks judgement: No Patient is meeting Inpatient Rehab admission criteria:: Yes
[2019-12-23] MEDS: chlorproMAZINE HCL 25 MG TABLET PO SCH (21:22)
[2019-12-23] MEDS: THIAMINE HCL 100 MG TABLET (FP) PO SCH (21:22)
[2019-12-23] MEDS ORDERED: MELATONIN 5 MG TABLETS PO PRN (22:00)
[2019-12-24] MEDS: METHADONE HCL 40 MG DISPERSABLE TABLET PO SCH (06:21)
[2019-12-24] MEDS: chlorproMAZINE HCL 25 MG TABLET PO SCH ×2 (10:39→22:24)
[2019-12-24] MEDS: PRENATAL VITAMINS W/ FOLIC ACID TABLET (FP) PO SCH (10:39)
[2019-12-24] MEDS: amLODIPine BESYLATE 10 MG TABLET (FP) PO SCH (10:39)
[2019-12-24] MEDS: LISINOPRIL 10 MG TABLET (FP) PO SCH (10:39)
[2019-12-24] MEDS: NICOTINE 14 MG/24 HOURS TOPICAL PATCH TD SCH (10:40)
[2019-12-24] MEDS: MAG HYDROX/AL HYDROX/SIMETH 30 ML UNIT-DOSE CUP PO PRN (17:05)
[2019-12-24] MEDS: THIAMINE HCL 100 MG TABLET (FP) PO SCH (22:24)
[2019-12-25] MEDS: METHADONE HCL 40 MG DISPERSABLE TABLET PO SCH (07:41)
[2019-12-25] MEDS: PRENATAL VITAMINS W/ FOLIC ACID TABLET (FP) PO SCH (10:10)
[2019-12-25] MEDS: chlorproMAZINE HCL 25 MG TABLET PO SCH ×2 (10:10→21:18)
[2019-12-25] MEDS: amLODIPine BESYLATE 10 MG TABLET (FP) PO SCH (10:10)
[2019-12-25] MEDS: LISINOPRIL 10 MG TABLET (FP) PO SCH (10:10)
[2019-12-25] MEDS: NICOTINE 14 MG/24 HOURS TOPICAL PATCH TD SCH (10:11)
[2019-12-25] MEDS: THIAMINE HCL 100 MG TABLET (FP) PO SCH (21:18)
[2019-12-26] MEDS: METHADONE HCL 40 MG DISPERSABLE TABLET PO SCH (06:40)
[2019-12-26] MEDS: PRENATAL VITAMINS W/ FOLIC ACID TABLET (FP) PO SCH (10:22)
[2019-12-26] MEDS: amLODIPine BESYLATE 10 MG TABLET (FP) PO SCH (10:22)
[2019-12-26] MEDS: NICOTINE 14 MG/24 HOURS TOPICAL PATCH TD SCH (10:23)
[2019-12-26] MEDS: chlorproMAZINE HCL 25 MG TABLET PO SCH ×2 (10:24→21:58)
[2019-12-26] MEDS: LISINOPRIL 10 MG TABLET (FP) PO SCH (10:24)
--- NOTE | 2019-12-26 11:40 | PN ---
[facility] Progress Note Note: Pt is a 54 y/o male with a hx of ANN-alcohol on Methadone 40 mg po daily with [facility] admitted to rehab from [address] [place] [address] on 12/23/19. PMHx:Hep C. PsycHx: Bipolar d/o. Pt reports he has no hx of HTN but was started on meds-norvasc 10 mg po daily and Lisinopril 10 mg po daily in detox due to elevated BP. Pt is not enthusiastic with being on the medications stating "I've never been on blood pressure meds in my life". Reports decreased appetite. Pt reports he has a primary care provider at [place], [place]. Vital Signs - 24 hr 12/25/19 12/26/19 12/26/19 21:23 00:28 03:36 Temperature Pulse Rate 71 Respiratory 16 16 Rate Blood Pressure 122/74 12/26/19 07:04 Temperature 97.4 F L Pulse Rate 85 Respiratory 16 Rate Blood Pressure 94/72 Alert o x 3,denies s/h/i nad oob ambulating with steady gait. extremities/skin:no edema;mole on left lower leg(davidson);skin intact. A/P ANN s/p detox maintain safety increase po fluids monitor blood pressure and re-eval meds. psych re-eval for medication times dosing. D/w pt to follow up with his primary care doctor after rehab treatment for management.
[2019-12-26] MEDS ORDERED: COLLOIDAL OATMEAL 1 BAR EACH TP PRN (11:59)
[2019-12-26] MEDS ORDERED: WITCH HAZEL 50% (TUCKS) 40 PAD/JAR PAD TP PRN (12:28)
[2019-12-26] MEDS: HYDROCORTISONE 2.5% TOPICAL CREAM 30 GM TUBE TP SCH ×2 (14:12→21:58)
[2019-12-26] MEDS: MINERAL OIL/PETROLAT/WATER TOPICAL CREAM 113 GM JAR TP SCH (14:12)
[2019-12-26] MEDS: THIAMINE HCL 100 MG TABLET (FP) PO SCH (21:59)
[2019-12-27] MEDS: METHADONE HCL 40 MG DISPERSABLE TABLET PO SCH (07:24)
--- NOTE | 2019-12-27 09:43 | CONSULT ---
[facility] Psychiatric Consult - Data Date of interview: 12/27/19 Admission source: [facility] Identifying data: Patient is a 54 year old single male, father of two, unemployed, homeless, and is supported by disability. This is one of multiple admissions for patient. Patient admitted to for alcohol dependence. Substance Abuse History: Smoking Cessation. Smoking history: Current every day smoker. Have you smoked in the past 12 months: Yes. Aproximately how many cigarettes per day: 10. Cigars Per Day: 0. Hx Chewing Tobacco Use: No. Initiated information on smoking cessation: Yes. 'Breaking Loose' booklet given : 12/18/19. - Substance & Tx. History. Hx Alcohol Use: Yes. Hx Substance Use : Yes. Substance Use Type: Heroin, Prescribed (MTD 40 MG). Hx Substance Use Treatment: Yes ([facility] - Substances abused. Alcohol. Substance route: Oral. Frequency: Daily. Amount used: Vodka 3 pints. Age of first use: 10. Date of last use: 12/18/19 (2 PINTS) Medical History: Consistent with hepatitis C (treated) Psychiatric History: Patient's first psychiatric contact was in his late 20's after his mother and he experienced depressed mood and onset disturbances of auditory/visual hallucinations. He was admitted to a hospital in [place] (can't recall), diagnosed with schizophrenia, bipolar disorder and prescribed psychotropic medications. Throughout the years Mr. Conde reports hospitalizations at various institutions including but not limited to [facility], [facility], [facility] (in [place]), facilities in [place] and most recently last month at [facility] after endorsing suicidal ideation. Mr. Conde reports history of multiple suicide attemps by overdosing on medications and illicit substances. Patient is currently provided with outpatient psychiatric care by Dr. Sultana at [facility] and is prescribed thorazine 100mg BID + Zoloft (unsure of dose) klonopin 1mg PRN + Ambien 10mg HS. Patient seen by Dr. España in detox and was resumed on a reduced dose of thorazine (50mg BID). At present patient reports moments of irritability throughout the day. He denies auditory/visual hallucinations, and suicidal/homicidal ideation. Physical/Sexual Abuse/Trauma History: denies. Mental Status Exam - Mental Status Exam Alert and Oriented to: Time, Place, Person Cognitive Function: Good Patient Appearance: Well Groomed Mood: Euthymic Affect: Appropriate Patient Behavior: Appropriate, Cooperative Speech Pattern: Clear, Appropriate Voice Loudness: Normal Thought Process: Intact, Goal Oriented Thought Disorder: Not Present Hallucinations: Denies Suicidal Ideation: Denies Homicidal Ideation: Denies Insight/Judgement: Poor Sleep: Fair Appetite: Fair Muscle strength/Tone: Normal Gait/Station: Normal Psychiatric Findings - Problem List ([place] 1, 2,3) (1) Alcohol use disorder Current Visit: Yes Status: Chronic (2) Methadone maintenance therapy patient Current Visit: Yes Status: Chronic Comment: [facility] (3) Schizoaffective disorder Current Visit: Yes Status: Chronic Qualifiers: Schizoaffective disorder type: unspecified Qualified Code(s): F25.9 - Schizoaffective disorder, unspecified - Initial Treatment Plan Initial Treatment Plan: Psychoeducation provided. Rehab in progress. Will order Thorazine 100mg BID + Zoloft 50mg daily. Benefits and side effects discussed. Verbal consent given.
[2019-12-27] MEDS: NICOTINE 14 MG/24 HOURS TOPICAL PATCH TD SCH (10:46)
[2019-12-27] MEDS: HYDROCORTISONE 2.5% TOPICAL CREAM 30 GM TUBE TP SCH ×2 (10:47→21:30)
[2019-12-27] MEDS: amLODIPine BESYLATE 10 MG TABLET (FP) PO SCH (10:48)
[2019-12-27] MEDS: PRENATAL VITAMINS W/ FOLIC ACID TABLET (FP) PO SCH (10:48)
[2019-12-27] MEDS: LISINOPRIL 10 MG TABLET (FP) PO SCH (10:49)
[2019-12-27] MEDS: chlorproMAZINE HCL 100 MG TABLET PO SCH ×2 (10:49→21:31)
[2019-12-27] MEDS: SERTRALINE HCL 50 MG TABLET (FP) PO SCH (10:51)
[2019-12-27] MEDS: chlorproMAZINE HCL 25 MG TABLET PO SCH (10:57)
[2019-12-27] MEDS: MINERAL OIL/PETROLAT/WATER TOPICAL CREAM 113 GM JAR TP SCH (11:00)
[2019-12-27] MEDS: THIAMINE HCL 100 MG TABLET (FP) PO SCH (21:28)
[2019-12-28] MEDS: METHADONE HCL 40 MG DISPERSABLE TABLET PO SCH (06:40)
[2019-12-28] MEDS: MINERAL OIL/PETROLAT/WATER TOPICAL CREAM 113 GM JAR TP SCH (10:47)
[2019-12-28] MEDS: amLODIPine BESYLATE 10 MG TABLET (FP) PO SCH (10:47)
[2019-12-28] MEDS: HYDROCORTISONE 2.5% TOPICAL CREAM 30 GM TUBE TP SCH ×2 (10:47→21:42)
[2019-12-28] MEDS: NICOTINE 14 MG/24 HOURS TOPICAL PATCH TD SCH (10:47)
[2019-12-28] MEDS: chlorproMAZINE HCL 100 MG TABLET PO SCH (10:48)
[2019-12-28] MEDS: SERTRALINE HCL 50 MG TABLET (FP) PO SCH (10:48)
[2019-12-28] MEDS: LISINOPRIL 10 MG TABLET (FP) PO SCH (10:48)
[2019-12-28] MEDS: PRENATAL VITAMINS W/ FOLIC ACID TABLET (FP) PO SCH (10:48)
[2019-12-28] MEDS: chlorproMAZINE HCL 25 MG TABLET PO SCH ×2 (11:41→21:42)
[2019-12-28] MEDS: THIAMINE HCL 100 MG TABLET (FP) PO SCH (21:42)
[2019-12-28] MEDS: MAG HYDROX/AL HYDROX/SIMETH 30 ML UNIT-DOSE CUP PO PRN (21:48)
[2019-12-29] MEDS: METHADONE HCL 40 MG DISPERSABLE TABLET PO SCH (06:36)
[2019-12-29] MEDS: HYDROCORTISONE 2.5% TOPICAL CREAM 30 GM TUBE TP SCH ×2 (10:07→21:33)
[2019-12-29] MEDS: PRENATAL VITAMINS W/ FOLIC ACID TABLET (FP) PO SCH (10:07)
[2019-12-29] MEDS: LISINOPRIL 10 MG TABLET (FP) PO SCH (10:07)
[2019-12-29] MEDS: SERTRALINE HCL 50 MG TABLET (FP) PO SCH (10:07)
[2019-12-29] MEDS: chlorproMAZINE HCL 25 MG TABLET PO SCH ×2 (10:08→21:32)
[2019-12-29] MEDS: MINERAL OIL/PETROLAT/WATER TOPICAL CREAM 113 GM JAR TP SCH (10:08)
[2019-12-29] MEDS: amLODIPine BESYLATE 10 MG TABLET (FP) PO SCH (10:08)
[2019-12-29] MEDS: NICOTINE 14 MG/24 HOURS TOPICAL PATCH TD SCH (10:08)
[2019-12-29] MEDS: THIAMINE HCL 100 MG TABLET (FP) PO SCH (21:33)
[2019-12-30] MEDS: METHADONE HCL 40 MG DISPERSABLE TABLET PO SCH (06:52)
[2019-12-30] MEDS: PRENATAL VITAMINS W/ FOLIC ACID TABLET (FP) PO SCH (10:27)
[2019-12-30] MEDS: SERTRALINE HCL 50 MG TABLET (FP) PO SCH (10:27)
[2019-12-30] MEDS: amLODIPine BESYLATE 10 MG TABLET (FP) PO SCH (10:28)
[2019-12-30] MEDS: NICOTINE 14 MG/24 HOURS TOPICAL PATCH TD SCH (10:28)
[2019-12-30] MEDS: chlorproMAZINE HCL 25 MG TABLET PO SCH ×3 (10:28→22:04)
[2019-12-30] MEDS: LISINOPRIL 10 MG TABLET (FP) PO SCH (10:28)
[2019-12-30] MEDS: HYDROCORTISONE 2.5% TOPICAL CREAM 30 GM TUBE TP SCH ×2 (10:29→21:30)
[2019-12-30] MEDS: MINERAL OIL/PETROLAT/WATER TOPICAL CREAM 113 GM JAR TP SCH (10:29)
[2019-12-30] MEDS: THIAMINE HCL 100 MG TABLET (FP) PO SCH (21:30)
[2019-12-31] MEDS: METHADONE HCL 40 MG DISPERSABLE TABLET PO SCH (06:31)
[2019-12-31] MEDS: HYDROCORTISONE 2.5% TOPICAL CREAM 30 GM TUBE TP SCH ×2 (10:16→21:17)
[2019-12-31] MEDS: MINERAL OIL/PETROLAT/WATER TOPICAL CREAM 113 GM JAR TP SCH (10:18)
[2019-12-31] MEDS: NICOTINE 14 MG/24 HOURS TOPICAL PATCH TD SCH (10:19)
[2019-12-31] MEDS: amLODIPine BESYLATE 10 MG TABLET (FP) PO SCH (10:19)
[2019-12-31] MEDS: PRENATAL VITAMINS W/ FOLIC ACID TABLET (FP) PO SCH (10:19)
[2019-12-31] MEDS: SERTRALINE HCL 50 MG TABLET (FP) PO SCH (10:20)
[2019-12-31] MEDS: LISINOPRIL 10 MG TABLET (FP) PO SCH (10:22)
[2019-12-31] MEDS: chlorproMAZINE HCL 25 MG TABLET PO SCH ×3 (10:22→21:17)
[2019-12-31] MEDS: THIAMINE HCL 100 MG TABLET (FP) PO SCH (21:17)
[2020-01-01] MEDS: METHADONE HCL 40 MG DISPERSABLE TABLET PO SCH (06:25)
[2020-01-01] MEDS: HYDROCORTISONE 2.5% TOPICAL CREAM 30 GM TUBE TP SCH ×2 (09:57→21:47)
[2020-01-01] MEDS: PRENATAL VITAMINS W/ FOLIC ACID TABLET (FP) PO SCH (09:57)
[2020-01-01] MEDS: SERTRALINE HCL 50 MG TABLET (FP) PO SCH (09:57)
[2020-01-01] MEDS: NICOTINE 14 MG/24 HOURS TOPICAL PATCH TD SCH (09:58)
[2020-01-01] MEDS: LISINOPRIL 10 MG TABLET (FP) PO SCH (09:58)
[2020-01-01] MEDS: amLODIPine BESYLATE 10 MG TABLET (FP) PO SCH (09:58)
[2020-01-01] MEDS: MINERAL OIL/PETROLAT/WATER TOPICAL CREAM 113 GM JAR TP SCH (09:58)
[2020-01-01] MEDS: chlorproMAZINE HCL 25 MG TABLET PO SCH ×2 (09:58→21:47)
[2020-01-01] MEDS: THIAMINE HCL 100 MG TABLET (FP) PO SCH (21:47)
[2020-01-02] MEDS: METHADONE HCL 40 MG DISPERSABLE TABLET PO SCH (06:28)
[2020-01-02] MEDS: amLODIPine BESYLATE 10 MG TABLET (FP) PO SCH (10:11)
[2020-01-02] MEDS: NICOTINE 14 MG/24 HOURS TOPICAL PATCH TD SCH (10:11)
[2020-01-02] MEDS: HYDROCORTISONE 2.5% TOPICAL CREAM 30 GM TUBE TP SCH (10:11)
[2020-01-02] MEDS: PRENATAL VITAMINS W/ FOLIC ACID TABLET (FP) PO SCH (10:11)
[2020-01-02] MEDS: MINERAL OIL/PETROLAT/WATER TOPICAL CREAM 113 GM JAR TP SCH (10:11)
[2020-01-02] MEDS: chlorproMAZINE HCL 25 MG TABLET PO SCH ×2 (10:12→21:29)
[2020-01-02] MEDS: LISINOPRIL 10 MG TABLET (FP) PO SCH (10:12)
[2020-01-02] MEDS: SERTRALINE HCL 50 MG TABLET (FP) PO SCH (10:12)
[2020-01-02] MEDS: DOCUSATE SODIUM 100 MG CAPSULE (FP) PO SCH (21:29)
[2020-01-02] MEDS: THIAMINE HCL 100 MG TABLET (FP) PO SCH (21:30)
[2020-01-03] MEDS: METHADONE HCL 40 MG DISPERSABLE TABLET PO SCH (06:32)
[2020-01-03] MEDS: PRENATAL VITAMINS W/ FOLIC ACID TABLET (FP) PO SCH (10:34)
[2020-01-03] MEDS: SERTRALINE HCL 50 MG TABLET (FP) PO SCH (10:34)
[2020-01-03] MEDS: chlorproMAZINE HCL 25 MG TABLET PO SCH ×2 (10:35→22:26)
[2020-01-03] MEDS: NICOTINE 14 MG/24 HOURS TOPICAL PATCH TD SCH (10:35)
[2020-01-03] MEDS: MINERAL OIL/PETROLAT/WATER TOPICAL CREAM 113 GM JAR TP SCH (10:36)
[2020-01-03] MEDS: DOCUSATE SODIUM 100 MG CAPSULE (FP) PO SCH (22:26)
[2020-01-03] MEDS: THIAMINE HCL 100 MG TABLET (FP) PO SCH (22:27)
[2020-01-04] MEDS: METHADONE HCL 40 MG DISPERSABLE TABLET PO SCH (05:50)
[2020-01-04 08:28] VITALS: PULSE 78; TEMP 97.4
[2020-01-04] MEDS: PRENATAL VITAMINS W/ FOLIC ACID TABLET (FP) PO SCH (10:22)
[2020-01-04] MEDS: SERTRALINE HCL 50 MG TABLET (FP) PO SCH (10:22)
[2020-01-04] MEDS: chlorproMAZINE HCL 25 MG TABLET PO SCH ×2 (10:23→21:36)
[2020-01-04] MEDS: MINERAL OIL/PETROLAT/WATER TOPICAL CREAM 113 GM JAR TP SCH (10:23)
[2020-01-04] MEDS: NICOTINE 14 MG/24 HOURS TOPICAL PATCH TD SCH (10:23)
--- NOTE | 2020-01-04 12:49 | DS ---
[facility] Rehab Discharge Summary - [facility] Rehab Discharge Summary Admission Date: 12/23/19 Discharge Date: 01/05/20 - History Present History: Alcohol dependence, Cannabis dependence, Cocaine dependence, MMTP Additional Comments: Pt is a 54 y/o male with a hx of ANN admitted to rehab and scheduled to discharge on 01/05/20. Pt met with his Flat Breakdown Processor Jessie Watson and has been referred to CD aftercare follow up with S:[facility] program in [place], [place] as well as return to [facility]. Pt has a psych care provider at [facility] with Dr. Shanelle Shoemaker. Pt reports primary care medical provider at [facility]. Pertinent Past History: ??HTN(although pt denies as well as denies meds while in rehab this admission) Hep C Schizoaffective d/o Insomnia - Discharge Physical Exam Vital Signs: Vital Signs Temperature 97.4 F L 01/04/20 06:30 Pulse Rate 78 01/04/20 06:30 Respiratory Rate 18 01/04/20 06:30 Blood Pressure 131/89 01/04/20 06:30 O2 Sat by Pulse Oximetry (%) Alert o x3, denies s/h/i nad oob ambulating with steady gait cardiac:s1 s2, rrr lungs:cta,robert., good air flow abdomen:+bs,soft,nt,nd extremities/skin:no edema;skin intact. Pertinent Admission Physical Exam Findings: Status stable on admission to rehab from detox. - Treatment Discharge Condition: Discharge condition good Hospital Course: Rehabilitated safely Responded well CD aftercare referral accepted participated in groups and individual sessions while in treatment. - Medication Discharge Medications: Ambulatory Orders Chlorpromazine [Thorazine -] 50 mg PO BID tablet 12/23/19 Chlorpromazine [Thorazine -] 100 mg PO BID #60 tablet 01/05/20 Sertraline HCl [Zoloft -] 50 mg PO DAILY #30 tablet 01/05/20 - Medication-Assisted Treatment (MAT) Medication-Assisted Treatment (MAT): No - Discharge Instructions Diet, activity, other medical instructions: Diet:MERCEDES Activity: oob ad kacy Other medical instructions:follow up with CD aftercare recommendation as scheduled. follow up with your primary care provider at [facility] for medical management within 1-2 weeks after discharge. - Diagnosis (1) Cocaine dependence Status: Chronic Qualifiers: Substance use status: uncomplicated Qualified Code(s): F14.20 - Cocaine dependence, uncomplicated (2) Alcohol use disorder Status: Chronic (3) Cannabis dependence Status: Chronic (4) Methadone maintenance therapy patient Status: Chronic (5) Nicotine dependence Status: Chronic Qualifiers: Nicotine product type: cigarettes Substance use status: uncomplicated Qualified Code(s): F17.210 - Nicotine dependence, cigarettes, uncomplicated (6) Hepatitis C Status: Resolved Qualifiers: Viral hepatitis chronicity: chronic Hepatic coma status: without hepatic coma Qualified Code(s): B18.2 - Chronic viral hepatitis C - Follow-up Referral Minutes to complete discharge: 25 - AMA Did Patient Leave Against Medical Advice: No
[2020-01-04] MEDS: DOCUSATE SODIUM 100 MG CAPSULE (FP) PO SCH (21:36)
[2020-01-04] MEDS: THIAMINE HCL 100 MG TABLET (FP) PO SCH (21:36)
[2020-01-05] MEDS: METHADONE HCL 40 MG DISPERSABLE TABLET PO SCH (06:59)
[2020-01-05 08:06] VITALS: BP 132/86
--- NOTE | 2020-01-05 08:34 | PN ---
S Progress Note Note: Psychiatric nurse practitioner note: Patient scheduled for discharge today. A 30 day prescription of Zoloft 50mg daily + Thorazine 100mg BID was electronically sent to [facility], [address] [place] [address].
== END 2020-01-05 09:00 | disposition home or self-care (01) | DRG 772 ==
LOC: YASAS 14:35 → Y5N 14:36
PROVIDERS: ADMIT Allergy & Immunology; ATTEND Allergy & Immunology
PROC: HZ42ZZZ Group Counseling for Substance Abuse Treatment, Cognitive-Behavioral (ICD-10-PCS; principal; 2019-12-23)
DX: F10.20 Alcohol dependence, uncomplicated (principal); F11.20 Opioid dependence, uncomplicated; F14.20 Cocaine dependence, uncomplicated; F12.20 Cannabis dependence, uncomplicated; F17.210 Nicotine dependence, cigarettes, uncomplicated; F25.9 Schizoaffective disorder, unspecified; B18.2 Chronic viral hepatitis C; G47.00 Insomnia, unspecified; Z91.013 Allergy to seafood; Z88.8 Allergy status to other drugs, medicaments and biological substances

== ENCOUNTER 2020-05-19 08:39 | Inpatient (IN) | payer OTHER ==
--- NOTE | 2020-05-19 09:31 | BHS.RME ---
Substance Use & Tx History - Substance Use History Alcohol Substance amount: 2 pints Frequency of use: Daily Substance route: Oral Date of Last Use: 05/19/20 - Last Treatment Date of last treatment: 04/19/20 Treatment type: Substance Use Disorder (ANN) Where was last treatment: Detox Physical/Psych/Mental Status - Behavior General Behavior: Increased activity (restlessness, agitation) Eye Contact: Normal Other Behaviors: Mannerisms - Cooperativeness Cooperativeness: Cooperative - Thinking Thought Processes: Tight, Logical, Goal Directed - Physical Health Problems Is patient presently having any pain?: No Does patient presently have any injuries (include location): No Does patient currently have a fever: No CIWA Nausea/Vomitin Muscle Tremors: 2 Anxiety: 2 Agitation: 1-Slight > Activity Paroxysmal Sweats: No Perspiration Orientation: 0-Oriented Tacttile Disturbances: 0-None Auditory Disturbances: 0-None Visual Disturbances: 3-Moderate Sensitivity Headache: 0-None Present CIWA-Ar Total Score: 10
--- NOTE | 2020-05-19 09:39 | HP ---
CIWA Score Nausea/Vomitin Muscle Tremors: 2 Anxiety: 2 Agitation: 1-Slight > Activity Paroxysmal Sweats: No Perspiration Orientation: 0-Oriented Tacttile Disturbances: 0-None Auditory Disturbances: 0-None Visual Disturbances: 3-Moderate Sensitivity Headache: 0-None Present CIWA-Ar Total Score: 10 - Admission Criteria OASAS Guidelines: Admission for Medically Managed Detox: Requires at least one of the followin. CIWA greater than 12 2. Seizures within the past 24 hours 3. Delirium tremens within the past 24 hours 4. Hallucinations within the past 24 hours 5. Acute intervention needed for co occurring medical disorder 6. Acute intervention needed for co occurring psychiatric disorder 7. Severe withdrawal that cannot be handled at a lower level of care (continued vomiting, continued diarrhea, abnormal vital signs) requiring intravenous medication and/or fluids 8. Patient presents the following: Acute intervention needed for co-occurring med or psych disorder (severe anxiety) Admission Criteria Met: Admission criteria met Admitting History and Physical - Past Medical History Hepatobiliary: Yes: Hepatitis C (completed treatment at [facility]) Psych: Yes: Anxiety, Bipolar, Depression - Past Surgical History Past Surgical History: Yes: None - Smoking History Smoking history: Current every day smoker Have you smoked in the past 12 months: Yes Aproximately how many cigarettes per day: 5 - Alcohol/Substance Use Hx Alcohol Use: Yes - Social History ADL: Independent History of Recent Travel: No Admission ROS [facility] Chief Complaint: I need detox Allergies/Adverse Reactions: Allergies Allergy/AdvReac Type Severity Reaction Status Date / Time fish derived [Fish derived] Allergy Intermediate Swelling Verified 05/19/20 09:51 iodine [Iodine] Allergy Intermediate Verified 05/19/20 09:51 History of Present Illness: 55 year old man with alcohol use presents for alcohol detox, his last treatment was initiated on 04/19/20. Patient is on methadone maintenance at [facility], 30mg, last medicated from take home bottle. Patient reports he left the other bottle in the house because the local city driver came very early and as he was rushing, he forgot to bring it. He denies seizures or blackouts. Exam Limitations: No Limitations - Ebola screening Have you traveled outside of the country in the last 21 days: No Have you had contact with anyone from an Ebola affected area: No Have you been sick,other than usual withdrawal symptoms: No Do you have a fever: No - Review of Systems Constitutional: Changes in sleep, Weight Stable EENT: reports: No Symptoms Reported Respiratory: reports: SOB with Exertion Cardiac: reports: No Symptoms Reported GI: reports: Nausea, Abdominal cramping : reports: No Symptoms Reported Musculoskeletal: reports: No Symptoms Reported Integumentary: reports: Sweating Neuro: reports: Headache, Numbness Endocrine: reports: No Symptoms Reported Hematology: reports: No Symptoms Reported Psychiatric: reports: Anxious, Depressed Other Systems: Reviewed and Negative Patient History - Patient Medical History Hx Anemia: No Hx Asthma: No Hx Chronic Obstructive Pulmonary Disease (COPD): No Hx Cancer: No Hx Cardiac Disorders: No Hx Congestive Heart Failure: No Hx Hypertension: No Hx Hypercholesterolemia: No Hx Pacemaker: No HX Cerebrovascular Accident: No Hx Seizures: No Hx Dementia: No Hx Diabetes: No Hx Gastrointestinal Disorders: No Hx Liver Disease: No Hx Genitourinary Disorders: No Hx Sexually Transmitted Disorders: No Hx Renal Disease (ESRD): No Hx Thyroid Disease: No Hx Human Immunodeficiency Virus (HIV): No Hx Hepatitis C: Yes (treatment) Hx Depression: Yes Hx Suicide Attempt: No Hx Bipolar Disorder: Yes Hx Schizophrenia: No - Patient Surgical History Past Surgical History: No Anesthesia Reaction: No - PPD History Previous Implant?: Yes Documented Results: Negative w/proof Implanted On Prior [facility] Admission?: Yes Date: 08/18/19 Results: NEGATIVE PPD to be Administered?: No - Smoking Cessation Smoking history: Current every day smoker Have you smoked in the past 12 months: Yes Aproximately how many cigarettes per day: 7 Cigars Per Day: 0 Hx Chewing Tobacco Use: No Initiated information on smoking cessation: Yes 'Breaking Loose' booklet given: 05/19/20 Admission Physical Exam BHS - Physical General Appearance: Yes: No Apparent Distress HEENTM: Yes: Hearing grossly Normal, Normocephalic, Normal Voice Respiratory: Yes: Chest Non-Tender, Lungs Clear, Normal Breath Sounds, No Respiratory Distress, No Accessory Muscle Use Neck: Yes: No masses,lesions,Nodules, Supple Breast: Yes: Breast Exam Deferred Cardiology: Yes: Regular Rhythm, Regular Rate, S1, S2 Abdominal: Yes: Normal Bowel Sounds, Non Tender, Soft Genitourinary: Yes: Within Normal Limits Back: Yes: Normal Inspection Musculoskeletal: Yes: full range of Motion, Gait Steady, Pelvis Stable Extremities: Yes: Normal Inspection, Normal Range of Motion Neurological: Yes: Fully Oriented, Alert, Motor Strength 5/5, Normal Mood/Affect, Normal Response Integumentary: Yes: Normal Color Lymphatic: Yes: Within Normal Limits - Diagnostic (1) Alcohol dependence with uncomplicated withdrawal Current Visit: Yes Status: Acute (2) Cannabis dependence Current Visit: Yes Status: Chronic (3) Methadone maintenance therapy patient Current Visit: Yes Status: Chronic Comment: [facility] (4) Nicotine dependence Current Visit: Yes Status: Chronic Qualifiers: Nicotine product type: cigarettes Substance use status: uncomplicated Qualified Code(s): F17.210 - Nicotine dependence, cigarettes, uncomplicated Cleared for Admission S - Detox or Rehab [facility] Level of Care: Medically Managed Detox Regimen/Protocol: Librium Claeared for Rehab Admission: No Breathalyzer - Breathalyzer Breathalyzer: 0.141 Urine Drug Screen - Test Device Lot number: [id number] Expiration date: 07/09/21 - Control Is test valid?: Yes - Results Drug screen NEGATIVE: No Urine drug screen results: THC-Marijuana, FEN-Fentanyl, MOP-Opiates, MTD- Methadone, BZO-Benzodiazepines Inpatient Rehab Admission - Rehab Decision to Admit Inpatient rehab admission?: No
[2020-05-19 09:44] VITALS: BMI 26.1
[2020-05-19] MEDS ORDERED: MAG HYDROX/AL HYDROX/SIMETH 30 ML UNIT-DOSE CUP PO PRN (09:52)
[2020-05-19] MEDS ORDERED: MENTHOL/PHENOL 1 EACH UD MM PRN (09:52)
[2020-05-19] MEDS ORDERED: BISMUTH SUBSALICYLATE 524 MG/30 ML UD PO PRN (09:52)
[2020-05-19] MEDS ORDERED: IBUPROFEN 400 MG TABLET (FP) PO PRN (09:52)
[2020-05-19] MEDS ORDERED: chlordiazePOXIDE HCL 10 MG CAPSULE PO PRN (09:52)
[2020-05-19] MEDS ORDERED: METHOCARBAMOL 500 MG TABLET PO PRN (09:52)
[2020-05-19] MEDS ORDERED: ONDANSETRON *ODT* 4 MG TABLET SL ONE (09:52)
[2020-05-19] MEDS ORDERED: ACETAMINOPHEN 325 MG TABLET (FP) PO PRN ×2 (09:52)
[2020-05-19] MEDS ORDERED: MAGNESIUM CITRATE 300 ML BOTTLE PO PRN (09:52)
[2020-05-19] MEDS ORDERED: MAGNESIUM HYDROX 2400MG/30ML ORAL SUSPENSION 30 ML CUP PO PRN (09:52)
[2020-05-19] MEDS ORDERED: NICOTINE POLACRILEX 2 MG GUM BUC PRN (09:52)
--- NOTE | 2020-05-19 10:39 | PN ---
S Progress Note Note: Patient's methadone has been verified despite previously telling staff that the clinic is closed.
[2020-05-19] MEDS: hydrOXYzine PAMOATE 25 MG CAPSULE (FP) PO SCH ×4 (11:10→22:27)
[2020-05-19] MEDS: NICOTINE 7 MG/24 HOURS TOPICAL PATCH TD SCH (11:11)
[2020-05-19] MEDS: PRENATAL VITAMINS W/ FOLIC ACID TABLET (FP) PO SCH (11:11)
[2020-05-19 11:30] LABS: HEMATOCRIT 40.6 % (35.4-49); HEMOGLOBIN 13.2 GM/dL (11.7-16.9); MCHC 32.5 g/dl (32.0-35.9); MEAN CELL VOLUME 92.3 fl (80-96); MEAN PLT VOLUME 9.2 fl (7.5-11.1); PLATELET COUNT 161 K/MM3 (134-434); WHITE BLOOD COUNT 4.7 K/mm3 (4.0-10.0)
[2020-05-19 11:41] LABS: ALBUMIN 4.3 g/dl (3.4-5.0); BILIRUBIN,TOTAL 0.6 mg/dL (0.2-1); BLOOD UREA NITROGEN 8.1 mg/dL (7-18); CREATININE 0.7 mg/dL (0.55-1.3); POTASSIUM 3.8 mmol/L (3.5-5.1); TOT PROT 8.2 g/dl (6.4-8.2)
[2020-05-19] MEDS: chlordiazePOXIDE HCL 25 MG CAPSULE PO SCH ×2 (13:26→22:27)
[2020-05-19] MEDS: THIAMINE HCL 100 MG TABLET (FP) PO SCH (22:27)
[2020-05-19] MEDS: MELATONIN 5 MG TABLETS PO SCH (22:27)
[2020-05-20] MEDS ORDERED: METHADONE HCL 10 MG TABLET PO ONE (06:00)
[2020-05-20] MEDS: chlordiazePOXIDE HCL 25 MG CAPSULE PO SCH (06:41)
[2020-05-20] MEDS: hydrOXYzine PAMOATE 25 MG CAPSULE (FP) PO SCH ×5 (06:41→22:26)
[2020-05-20] MEDS: METHADONE HCL 10 MG TABLET PO SCH (06:41)
[2020-05-20] MEDS ORDERED: ALBUTEROL SO4 0.083% IH SOL 2.5 MG/3 ML VIAL.NEB. NEB PRN (09:20)
--- NOTE | 2020-05-20 09:23 | PN ---
[facility] CIWA - CIWA Score Nausea/Vomitin-Mild Nausea/No Vomiting Muscle Tremors: 3 Anxiety: 3 Agitation: 1-Slight > Activity Paroxysmal Sweats: 1-Minimal Palms Moist Orientation: 0-Oriented Tacttile Disturbances: 1-Very Mild Itch/Numbness Auditory Disturbances: 0-None Visual Disturbances: 2-Mild Sensitivity Headache: 0-None Present CIWA-Ar Total Score: 12 [facility] Progress Note (SOAP) Subjective: 55 years old male admitted on 05/19/20 for alcohol withdrawal sx management treating with librium detox regiment reports itchy dry skin eucerin cream bid reports smoking cigarettes daily with a long time trouble to take a deep breath appears to have excertional dyspnea after coughing mucinex + ventolin prn + nebulizer prn Objective: 05/20/20 09:27 Vital Signs - 24 hr 05/19/20 05/19/20 05/19/20 09:33 10:28 10:29 Temperature 97.5 F L 97.8 F Pulse Rate 63 61 Respiratory 20 18 Rate Blood Pressure 136/91 140/91 O2 Sat by Pulse 98 Oximetry (%) 05/19/20 05/19/20 05/19/20 12:46 14:34 17:06 Temperature 98 F 98.0 F Pulse Rate 77 66 62 Respiratory 18 18 Rate Blood Pressure 145/95 140/82 148/98 O2 Sat by Pulse 97 98 Oximetry (%) 05/19/20 05/20/20 20:38 07:00 Temperature 98.6 F 97.8 F Pulse Rate 74 64 Respiratory 18 18 Rate Blood Pressure 107/71 145/94 O2 Sat by Pulse 98 98 Oximetry (%) 05/20/20 09:29 bp elevation clonidine 0.1 mg po rpn Laboratory Tests 05/19/20 05/19/20 05/19/20 10:00 10:00 10:00 WBC 4.7 RBC 4.40 Hgb 13.2 Hct 40.6 MCV 92.3 MCH 30.0 MCHC 32.5 RDW 16.0 H Plt Count 161 MPV 9.2 Sodium 142 Potassium 3.8 Chloride 106 Carbon Dioxide 30 Anion Gap 6 L BUN 8.1 Creatinine 0.7 Est GFR (CKD-EPI)AfAm 121.41 Est GFR (CKD-EPI)NonAf 104.76 Random Glucose 97 Calcium 9.0 Total Bilirubin 0.6 AST 94 H ALT 96 H Alkaline Phosphatase 93 Total Protein 8.2 Albumin 4.3 Syphilis Serology Non-reactive lab noted ast elevation discontinue librium begin ativan detox regiment Assessment: 05/20/20 09:34 alcohol withdrawal ast elevation copd Plan: ativan regiment ventolin prn albuterol prn
[2020-05-20] MEDS ORDERED: cloNIDine HCL 0.1 MG TABLET PO PRN (09:28)
[2020-05-20] MEDS ORDERED: LORazepam 1 MG TABLET PO PRN (09:31)
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
[2020-05-20] MEDS: NICOTINE 7 MG/24 HOURS TOPICAL PATCH TD SCH (10:15)
[2020-05-20] MEDS: SERTRALINE HCL 50 MG TABLET (FP) PO SCH (10:16)
[2020-05-20] MEDS: LORazepam 2 MG TABLET PO SCH ×3 (10:16→22:27)
[2020-05-20] MEDS: PRENATAL VITAMINS W/ FOLIC ACID TABLET (FP) PO SCH (10:16)
[2020-05-20] MEDS: ALBUTEROL SO4 HFA INHALER IH PRN (10:18)
[2020-05-20] MEDS: MINERAL OIL/PETROLAT/WATER TOPICAL CREAM 113 GM JAR TP SCH ×2 (11:09→22:26)
[2020-05-20] MEDS: guaiFENesin 600 MG TABLET.ER (FP) PO SCH ×2 (11:09→22:26)
[2020-05-20] MEDS: chlorproMAZINE HCL 100 MG TABLET PO SCH ×2 (13:22→22:26)
[2020-05-20] MEDS ORDERED: SUVOREXANT 10 MG TABLET PO PRN (22:00)
[2020-05-20] MEDS: MELATONIN 5 MG TABLETS PO SCH (22:26)
[2020-05-20] MEDS: THIAMINE HCL 100 MG TABLET (FP) PO SCH (22:27)
[2020-05-21] MEDS ORDERED: chlordiazePOXIDE 5 MG CAPSULE PO SCH (05:00)
[2020-05-21] MEDS: hydrOXYzine PAMOATE 25 MG CAPSULE (FP) PO SCH ×5 (06:22→22:24)
[2020-05-21] MEDS: METHADONE HCL 10 MG TABLET PO SCH (06:22)
[2020-05-21] MEDS: LORazepam 1 MG TABLET PO SCH ×4 (06:22→22:23)
[2020-05-21] MEDS: ALBUTEROL SO4 HFA INHALER IH PRN (08:38)
[2020-05-21] MEDS: guaiFENesin 600 MG TABLET.ER (FP) PO SCH ×2 (10:38→22:23)
[2020-05-21] MEDS: NICOTINE 7 MG/24 HOURS TOPICAL PATCH TD SCH (10:38)
[2020-05-21] MEDS: MINERAL OIL/PETROLAT/WATER TOPICAL CREAM 113 GM JAR TP SCH ×2 (10:38→22:24)
[2020-05-21] MEDS: SERTRALINE HCL 50 MG TABLET (FP) PO SCH (10:39)
[2020-05-21] MEDS: PRENATAL VITAMINS W/ FOLIC ACID TABLET (FP) PO SCH (10:39)
[2020-05-21] MEDS: chlorproMAZINE HCL 100 MG TABLET PO SCH ×2 (10:39→22:23)
--- NOTE | 2020-05-21 12:14 | PN ---
[facility] CIWA - CIWA Score Nausea/Vomitin-No Nausea/No Vomiting Muscle Tremors: 1-None Visible, but [place] Anxiety: 1-Mildly Anxious Agitation: 1-Slight > Activity Paroxysmal Sweats: No Perspiration Orientation: 0-Oriented Tacttile Disturbances: 0-None Auditory Disturbances: 0-None Visual Disturbances: 0-None Headache: 1-Very Mild CIWA-Ar Total Score: 4 [facility] Progress Note (SOAP) Subjective: alert,irritable,anxious,interrupted sleep Objective: 05/21/20 12:11 Vital Signs Temperature 98.6 F 05/21/20 09:34 Pulse Rate 65 05/21/20 09:34 Respiratory Rate 18 05/21/20 09:34 Blood Pressure 130/86 05/21/20 09:34 O2 Sat by Pulse Oximetry (%) 98 05/21/20 09:34 Assessment: 05/21/20 12:12 withdrawal symptom Plan: continue detox librium regimen,continue methadone 30 mgs po daily maintenance ,discharge in am
--- NOTE | 2020-05-21 12:17 | PN ---
S Progress Note Note: correction patient discharge day is thu
[2020-05-21] MEDS: THIAMINE HCL 100 MG TABLET (FP) PO SCH (22:23)
[2020-05-21] MEDS: MELATONIN 5 MG TABLETS PO SCH (22:26)
[2020-05-22] MEDS ORDERED: chlordiazePOXIDE HCL 10 MG CAPSULE PO PRN
[2020-05-22] MEDS ORDERED: LORazepam 0.5 MG TABLET PO PRN
[2020-05-22] MEDS ORDERED: chlordiazePOXIDE HCL 10 MG CAPSULE PO SCH (05:00)
[2020-05-22] MEDS: hydrOXYzine PAMOATE 25 MG CAPSULE (FP) PO SCH ×5 (06:35→22:15)
[2020-05-22] MEDS: LORazepam 0.5 MG TABLET PO SCH ×4 (06:35→22:13)
[2020-05-22] MEDS: METHADONE HCL 10 MG TABLET PO SCH (06:35)
[2020-05-22] MEDS: SERTRALINE HCL 50 MG TABLET (FP) PO SCH (10:33)
[2020-05-22] MEDS: NICOTINE 7 MG/24 HOURS TOPICAL PATCH TD SCH (10:33)
[2020-05-22] MEDS: guaiFENesin 600 MG TABLET.ER (FP) PO SCH ×2 (10:33→22:13)
[2020-05-22] MEDS: PRENATAL VITAMINS W/ FOLIC ACID TABLET (FP) PO SCH (10:33)
[2020-05-22] MEDS: chlorproMAZINE HCL 100 MG TABLET PO SCH ×2 (10:33→22:13)
[2020-05-22] MEDS: MINERAL OIL/PETROLAT/WATER TOPICAL CREAM 113 GM JAR TP SCH ×2 (10:34→22:15)
--- NOTE | 2020-05-22 10:46 | PN ---
S CIWA - CIWA Score Nausea/Vomitin-No Nausea/No Vomiting Muscle Tremors: 1-None Visible, but [place] Anxiety: 1-Mildly Anxious Agitation: 0-Normal Activity Paroxysmal Sweats: No Perspiration Orientation: 0-Oriented Tacttile Disturbances: 0-None Auditory Disturbances: 0-None Visual Disturbances: 0-None Headache: 0-None Present CIWA-Ar Total Score: 2 B[facility] Progress Note (SOAP) Subjective: Pt reports detox proceeding well and decreased w/s. Last Ativan taper in A.M. Pt scheduled to discharge on 05/23/20. Objective: 05/22/20 10:44 Vital Signs - 24 hr 05/21/20 05/21/20 05/21/20 13:15 17:00 20:30 Temperature 97.5 F L 97.8 F Pulse Rate 101 H 77 Respiratory 18 18 Rate Blood Pressure 118/67 125/85 O2 Sat by Pulse 98 98 Oximetry (%) 05/21/20 05/22/20 22:24 06:21 Temperature 97.8 F 98.0 F Pulse Rate 77 64 Respiratory 18 18 Rate Blood Pressure 132/90 112/72 O2 Sat by Pulse 96 Oximetry (%) Laboratory Tests 05/19/20 05/19/20 05/19/20 10:00 10:00 10:00 WBC 4.7 RBC 4.40 Hgb 13.2 Hct 40.6 MCV 92.3 MCH 30.0 MCHC 32.5 RDW 16.0 H Plt Count 161 MPV 9.2 Sodium 142 Potassium 3.8 Chloride 106 Carbon Dioxide 30 Anion Gap 6 L BUN 8.1 Creatinine 0.7 Est GFR (CKD-EPI)AfAm 121.41 Est GFR (CKD-EPI)NonAf 104.76 Random Glucose 97 Calcium 9.0 Total Bilirubin 0.6 AST 94 H ALT 96 H Alkaline Phosphatase 93 Total Protein 8.2 Albumin 4.3 Syphilis Serology Non-reactive COVID-19 (TOMASZ) 05/19/20 10:00 WBC RBC Hgb Hct MCV MCH MCHC RDW Plt Count MPV Sodium Potassium Chloride Carbon Dioxide Anion Gap BUN Creatinine Est GFR (CKD-EPI)AfAm Est GFR (CKD-EPI)NonAf Random Glucose Calcium Total Bilirubin AST ALT Alkaline Phosphatase Total Protein Albumin Syphilis Serology COVID-19 (TOMASZ) Not detected alert o x 3 nad oob ambulating with steady gait Assessment: 05/22/20 10:44 mild w/s medically stable Plan: cont detox increase po fluids maintain safety pt may be discharged in the morning if medically stable.
[2020-05-22] MEDS: ALBUTEROL SO4 HFA INHALER IH PRN (12:17)
[2020-05-22] MEDS: MELATONIN 5 MG TABLETS PO SCH (22:15)
[2020-05-22] MEDS: THIAMINE HCL 100 MG TABLET (FP) PO SCH (22:15)
[2020-05-23] MEDS ORDERED: LORazepam 0.5 MG TABLET PO ONE (05:00)
[2020-05-23] MEDS ORDERED: chlordiazePOXIDE HCL 10 MG CAPSULE PO ONE (05:00)
[2020-05-23] MEDS: METHADONE HCL 10 MG TABLET PO SCH (06:20)
[2020-05-23] MEDS: hydrOXYzine PAMOATE 25 MG CAPSULE (FP) PO SCH ×2 (06:20→09:26)
[2020-05-23 06:43] VITALS: BP 127/84; PULSE 66; TEMP 97.3
--- NOTE | 2020-05-23 08:17 | PN ---
[facility] Progress Note Note: Patient is scheduled for discharge today. Scripts for30 days supply of medications(Thorazine 100 mg/tid, Zoloft 100 mg/day) are electronically transmitted to [facility], [address] [place] [id number]
[2020-05-23] MEDS: MINERAL OIL/PETROLAT/WATER TOPICAL CREAM 113 GM JAR TP SCH (09:26)
[2020-05-23] MEDS: SERTRALINE HCL 50 MG TABLET (FP) PO SCH (09:26)
[2020-05-23] MEDS: NICOTINE 7 MG/24 HOURS TOPICAL PATCH TD SCH (09:26)
[2020-05-23] MEDS: chlorproMAZINE HCL 100 MG TABLET PO SCH (09:26)
[2020-05-23] MEDS: PRENATAL VITAMINS W/ FOLIC ACID TABLET (FP) PO SCH (09:26)
[2020-05-23] MEDS: guaiFENesin 600 MG TABLET.ER (FP) PO SCH (09:26)
--- NOTE | 2020-05-23 13:15 | DS ---
[facility] Detox Discharge Summary Admission Date: 05/19/20 Discharge Date: 05/23/20 - History Present History: Alcohol Dependence, MMTP Pertinent Past History: Hep C COPD Mood Disorder - Physical Exam Results Vital Signs: Vital Signs Temperature 97.3 F L 05/23/20 06:17 Pulse Rate 66 05/23/20 06:17 Respiratory Rate 18 05/23/20 06:17 Blood Pressure 127/84 05/23/20 06:17 O2 Sat by Pulse Oximetry (%) 96 05/23/20 06:17 VSS Alert o x 3 nad oob ambulating with steady gait Active ROM all ext. Pertinent Admission Physical Exam Findings: Laboratory Tests 05/19/20 05/19/20 05/19/20 10:00 10:00 10:00 WBC 4.7 RBC 4.40 Hgb 13.2 Hct 40.6 MCV 92.3 MCH 30.0 MCHC 32.5 RDW 16.0 H Plt Count 161 MPV 9.2 Sodium 142 Potassium 3.8 Chloride 106 Carbon Dioxide 30 Anion Gap 6 L BUN 8.1 Creatinine 0.7 Est GFR (CKD-EPI)AfAm 121.41 Est GFR (CKD-EPI)NonAf 104.76 Random Glucose 97 Calcium 9.0 Total Bilirubin 0.6 AST 94 H ALT 96 H Alkaline Phosphatase 93 Total Protein 8.2 Albumin 4.3 Syphilis Serology Non-reactive COVID-19 (TOMASZ) 05/19/20 10:00 WBC RBC Hgb Hct MCV MCH MCHC RDW Plt Count MPV Sodium Potassium Chloride Carbon Dioxide Anion Gap BUN Creatinine Est GFR (CKD-EPI)AfAm Est GFR (CKD-EPI)NonAf Random Glucose Calcium Total Bilirubin AST ALT Alkaline Phosphatase Total Protein Albumin Syphilis Serology COVID-19 (TOMASZ) Not detected - Treatment Hospital Course: Detox Protocol Followed, Detoxed Safely, Responded well, Discharged Condition Good, Rehab Referral Accepted Patient has Accepted a Rehab Referral to: [facility] - Medication Discharge Medications: Ambulatory Orders Chlorpromazine [Thorazine -] 100 mg PO BID #60 tablet 05/23/20 Sertraline HCl [Zoloft] 100 mg PO DAILY #30 tablet 05/23/20 - Diagnosis (1) Alcohol dependence with uncomplicated withdrawal Status: Acute (2) COPD (chronic obstructive pulmonary disease) Status: Chronic Qualifiers: Emphysema type: unspecified (3) Nicotine dependence Status: Acute Qualifiers: Nicotine product type: cigarettes Substance use status: in withdrawal Qualified Code(s): F17.213 - Nicotine dependence, cigarettes, with withdrawal (4) Methadone maintenance therapy patient Status: Chronic - AMA Did Patient Leave Against Medical Advice: No
== END 2020-05-23 11:05 | disposition home or self-care (01) | DRG 773 ==
LOC: YASAS 08:39 → Y5N DETOX 09:50
PROVIDERS: ADMIT Allergy & Immunology; ATTEND Allergy & Immunology
PROC: HZ2ZZZZ Detoxification Services for Substance Abuse Treatment (ICD-10-PCS; principal; 2020-05-19)
DX: F10.230 Alcohol dependence with withdrawal, uncomplicated (principal); F11.20 Opioid dependence, uncomplicated; F12.20 Cannabis dependence, uncomplicated; F17.210 Nicotine dependence, cigarettes, uncomplicated; F10.24 Alcohol dependence with alcohol-induced mood disorder; F10.282 Alcohol dependence with alcohol-induced sleep disorder; F31.9 Bipolar disorder, unspecified; F39 Unspecified mood [affective] disorder; J44.9 Chronic obstructive pulmonary disease, unspecified; B18.2 Chronic viral hepatitis C; L85.3 Xerosis cutis; R06.09 Other forms of dyspnea; Z91.410 Personal history of adult physical and sexual abuse; Z56.0 Unemployment, unspecified; Z59.0 Homelessness; Z88.8 Allergy status to other drugs, medicaments and biological substances; Z91.018 Allergy to other foods
CPT/HCPCS: 36415; 80053; 85027; 86780; J0735; U0003

== ENCOUNTER 2020-10-23 09:59 | Inpatient (IN) | payer OTHER ==
[2020-10-23 11:49] VITALS: BMI 23.9
[2020-10-23] MEDS ORDERED: MAGNESIUM HYDROX 2400MG/30ML ORAL SUSPENSION 30 ML CUP PO PRN (11:53)
[2020-10-23] MEDS ORDERED: ACETAMINOPHEN 325 MG TABLET (FP) PO PRN ×2 (11:53)
[2020-10-23] MEDS ORDERED: LORazepam 1 MG TABLET PO PRN (11:53)
[2020-10-23] MEDS ORDERED: MENTHOL/PHENOL 1 EACH UD MM PRN (11:53)
[2020-10-23] MEDS ORDERED: ONDANSETRON *ODT* 4 MG TABLET SL PRN (11:53)
[2020-10-23] MEDS ORDERED: METHOCARBAMOL 500 MG TABLET PO PRN (11:53)
[2020-10-23] MEDS ORDERED: MAG HYDROX/AL HYDROX/SIMETH 30 ML UNIT-DOSE CUP PO PRN (11:53)
[2020-10-23] MEDS ORDERED: IBUPROFEN 400 MG TABLET (FP) PO PRN (11:53)
[2020-10-23] MEDS ORDERED: BISMUTH SUBSALICYLATE 262 MG/15 ML BTL PO PRN (11:53)
[2020-10-23] MEDS ORDERED: NICOTINE POLACRILEX 2 MG GUM BUC PRN (11:53)
[2020-10-23] MEDS ORDERED: MAGNESIUM CITRATE 300 ML BOTTLE PO PRN (11:53)
[2020-10-23] MEDS: NICOTINE 14 MG/24 HOURS TOPICAL PATCH TD SCH (12:19)
[2020-10-23] MEDS: hydrOXYzine PAMOATE 25 MG CAPSULE (FP) PO SCH ×3 (14:41→22:36)
[2020-10-23 15:36] LABS: HEMOGLOBIN 12.7 GM/dL (11.7-16.9); MCH 30.6 pg (25.7-33.7); MCHC 32.7 g/dl (32.0-35.9); MEAN CELL VOLUME 93.7 fl (80-96); MEAN PLT VOLUME 9.3 fl (7.5-11.1); PLATELET COUNT 176 K/MM3 (134-434); RBC 4.16 M/mm3 (4.00-5.60); RDW 15.4 % (11.9-15.9); WHITE BLOOD COUNT 5.2 K/mm3 (4.0-10.0)
[2020-10-23 15:38] LABS: POTASSIUM 3.9 mmol/L (3.5-5.1)
[2020-10-23 15:40] LABS: CALCIUM 9.5 mg/dL (8.5-10.1)
[2020-10-23 15:41] LABS: ALBUMIN 4.1 g/dl (3.4-5.0); BLOOD UREA NITROGEN 7.6 mg/dL (7-18)
[2020-10-23 15:44] LABS: CREATININE 0.5 mg/dL (0.55-1.3)
[2020-10-23 15:45] LABS: BILIRUBIN,TOTAL 0.3 mg/dL (0.2-1)
[2020-10-23 15:46] LABS: TOT PROT 7.9 g/dl (6.4-8.2)
[2020-10-23] MEDS: LORazepam 2 MG TABLET PO SCH ×2 (16:51→22:36)
[2020-10-23] MEDS ORDERED: cloNIDine HCL 0.1 MG TABLET PO ONE (18:28)
[2020-10-23] MEDS ORDERED: METOPROLOL TARTRATE 25 MG TABLET (FP) PO ONE (21:14)
[2020-10-23] MEDS: MELATONIN 5 MG TABLETS PO SCH (22:36)
[2020-10-23] MEDS: chlorproMAZINE HCL 100 MG TABLET PO SCH (22:36)
[2020-10-23] MEDS: THIAMINE HCL 100 MG TABLET (FP) PO SCH (22:36)
[2020-10-24] MEDS: LORazepam 2 MG TABLET PO SCH ×4 (05:03→22:17)
[2020-10-24] MEDS: METHADONE HCL 10 MG TABLET PO SCH (05:03)
[2020-10-24] MEDS: hydrOXYzine PAMOATE 25 MG CAPSULE (FP) PO SCH ×5 (05:03→22:17)
[2020-10-24] MEDS: SERTRALINE HCL 50 MG TABLET (FP) PO SCH (10:28)
[2020-10-24] MEDS: chlorproMAZINE HCL 100 MG TABLET PO SCH ×2 (10:28→22:17)
[2020-10-24] MEDS: NICOTINE 14 MG/24 HOURS TOPICAL PATCH TD SCH (10:28)
[2020-10-24] MEDS: PRENATAL VITAMINS W/ FOLIC ACID TABLET (FP) PO SCH (10:28)
[2020-10-24] MEDS: amLODIPine BESYLATE 10 MG TABLET (FP) PO SCH (10:28)
[2020-10-24] MEDS ORDERED: MASKS NR ONE (17:52)
[2020-10-24] MEDS: THIAMINE HCL 100 MG TABLET (FP) PO SCH (22:17)
[2020-10-24] MEDS: MELATONIN 5 MG TABLETS PO SCH (22:17)
[2020-10-25] MEDS: hydrOXYzine PAMOATE 25 MG CAPSULE (FP) PO SCH ×5 (05:53→22:14)
[2020-10-25] MEDS: LORazepam 1 MG TABLET PO SCH ×4 (05:53→22:14)
[2020-10-25] MEDS: METHADONE HCL 10 MG TABLET PO SCH (05:54)
[2020-10-25] MEDS: SERTRALINE HCL 50 MG TABLET (FP) PO SCH (10:33)
[2020-10-25] MEDS: chlorproMAZINE HCL 100 MG TABLET PO SCH ×2 (10:33→22:14)
[2020-10-25] MEDS: amLODIPine BESYLATE 10 MG TABLET (FP) PO SCH (10:33)
[2020-10-25] MEDS: PRENATAL VITAMINS W/ FOLIC ACID TABLET (FP) PO SCH (10:33)
[2020-10-25] MEDS: NICOTINE 14 MG/24 HOURS TOPICAL PATCH TD SCH (10:35)
[2020-10-25 11:07] LABS: SGOT/AST 80 U/L (15-37); SGPT/ALT 97 U/L (13-61)
[2020-10-25 11:10] LABS: ALK PHOS 124 U/L (45-117)
[2020-10-25] MEDS: MELATONIN 5 MG TABLETS PO SCH (22:14)
[2020-10-25] MEDS: THIAMINE HCL 100 MG TABLET (FP) PO SCH (22:14)
[2020-10-26] MEDS ORDERED: LORazepam 0.5 MG TABLET PO PRN
[2020-10-26] MEDS: METHADONE HCL 10 MG TABLET PO SCH (05:08)
[2020-10-26] MEDS: LORazepam 0.5 MG TABLET PO SCH ×2 (05:08→10:38)
[2020-10-26] MEDS: hydrOXYzine PAMOATE 25 MG CAPSULE (FP) PO SCH ×2 (05:08→09:44)
[2020-10-26] MEDS ORDERED: LACTULOSE 20 GM/30 ML UDC (FOR ORAL USE ONLY) PO SCH (07:30)
[2020-10-26 09:10] VITALS: BP 128/87; TEMP 96.6
[2020-10-26] MEDS: PRENATAL VITAMINS W/ FOLIC ACID TABLET (FP) PO SCH (09:40)
[2020-10-26] MEDS: NICOTINE 14 MG/24 HOURS TOPICAL PATCH TD SCH (09:41)
[2020-10-26] MEDS: amLODIPine BESYLATE 10 MG TABLET (FP) PO SCH (09:43)
[2020-10-26 11:50] VITALS: PULSE 102
[2020-10-27] MEDS ORDERED: LORazepam 0.5 MG TABLET PO ONE (05:00)
== END 2020-10-26 12:06 | disposition left against medical advice (07) | DRG 770 ==
LOC: YASAS 09:59 → Y3N 11:29
PROVIDERS: ADMIT Allergy & Immunology; ATTEND Allergy & Immunology
PROC: HZ2ZZZZ Detoxification Services for Substance Abuse Treatment (ICD-10-PCS; principal; 2020-10-23)
DX: F10.230 Alcohol dependence with withdrawal, uncomplicated (principal); F10.282 Alcohol dependence with alcohol-induced sleep disorder; F11.20 Opioid dependence, uncomplicated; F17.210 Nicotine dependence, cigarettes, uncomplicated; F25.9 Schizoaffective disorder, unspecified; R94.5 Abnormal results of liver function studies; E72.20 Disorder of urea cycle metabolism, unspecified; R41.82 Altered mental status, unspecified; R03.0 Elevated blood-pressure reading, without diagnosis of hypertension; Z86.19 Personal history of other infectious and parasitic diseases; Z91.013 Allergy to seafood
CPT/HCPCS: 36415; 80053; 82140; 84075; 84450; 84460; 85027; 86780; C9803; J0735; U0003

== ENCOUNTER 2020-11-24 14:41 | Inpatient (IN) | payer OTHER ==
[2020-11-24 16:41] VITALS: BMI 25.2
[2020-11-24] MEDS ORDERED: NICOTINE POLACRILEX 2 MG GUM BUC PRN (18:20)
[2020-11-24] MEDS ORDERED: ONDANSETRON *ODT* 4 MG TABLET SL PRN (18:20)
[2020-11-24] MEDS ORDERED: IBUPROFEN 400 MG TABLET (FP) PO PRN (18:20)
[2020-11-24] MEDS ORDERED: MAGNESIUM HYDROX 2400MG/30ML ORAL SUSPENSION 30 ML CUP PO PRN (18:20)
[2020-11-24] MEDS ORDERED: BISMUTH SUBSALICYLATE 524 MG/30 ML UD PO PRN (18:20)
[2020-11-24] MEDS ORDERED: ACETAMINOPHEN 325 MG TABLET (FP) PO PRN ×2 (18:20)
[2020-11-24] MEDS ORDERED: METHOCARBAMOL 500 MG TABLET PO PRN (18:20)
[2020-11-24] MEDS ORDERED: MENTHOL/PHENOL 1 EACH UD MM PRN (18:20)
[2020-11-24] MEDS ORDERED: MAGNESIUM CITRATE 300 ML BOTTLE PO PRN (18:20)
[2020-11-24] MEDS ORDERED: MAG HYDROX/AL HYDROX/SIMETH 30 ML UNIT-DOSE CUP PO PRN (18:20)
[2020-11-24] MEDS ORDERED: LORazepam 1 MG TABLET PO PRN (18:20)
[2020-11-24] MEDS: hydrOXYzine PAMOATE 25 MG CAPSULE (FP) PO SCH (22:59)
[2020-11-24] MEDS: THIAMINE HCL 100 MG TABLET (FP) PO SCH (22:59)
[2020-11-24] MEDS: MELATONIN 5 MG TABLETS PO SCH (22:59)
[2020-11-24] MEDS: LORazepam 2 MG TABLET PO SCH (23:02)
[2020-11-25] MEDS ORDERED: METHADONE HCL 10 MG TABLET PO ONE (06:00)
[2020-11-25] MEDS: LORazepam 2 MG TABLET PO SCH ×4 (07:02→22:53)
[2020-11-25] MEDS: hydrOXYzine PAMOATE 25 MG CAPSULE (FP) PO SCH ×5 (07:04→22:53)
[2020-11-25] MEDS: PRENATAL VITAMINS W/ FOLIC ACID TABLET (FP) PO SCH (10:35)
[2020-11-25] MEDS: NICOTINE 21 MG/24 HOURS TOPICAL PATCH TD SCH (10:36)
[2020-11-25 10:42] LABS: HEMATOCRIT 37.7 % (35.4-49); HEMOGLOBIN 12.8 GM/dL (11.7-16.9); MCHC 33.9 g/dl (32.0-35.9); MEAN CELL VOLUME 91.5 fl (80-96); MEAN PLT VOLUME 8.9 fl (7.5-11.1); PLATELET COUNT 152 K/MM3 (134-434); RBC 4.12 M/mm3 (4.00-5.60); RDW 14.9 % (11.9-15.9); WHITE BLOOD COUNT 3.9 K/mm3 (4.0-10.0)
[2020-11-25 10:45] LABS: ALBUMIN 3.8 g/dl (3.4-5.0); BLOOD UREA NITROGEN 10.3 mg/dL (7-18); CALCIUM 9.1 mg/dL (8.5-10.1)
[2020-11-25 10:49] LABS: CREATININE 0.7 mg/dL (0.55-1.3)
[2020-11-25 10:50] LABS: BILIRUBIN,TOTAL 1.2 mg/dL (0.2-1); TOT PROT 7.5 g/dl (6.4-8.2)
[2020-11-25] MEDS ORDERED: amLODIPine BESYLATE 5 MG TABLET (FP) PO ONE (16:37)
[2020-11-25] MEDS: LACTULOSE 20 GM/30 ML UDC (FOR ORAL USE ONLY) PO SCH ×2 (17:29→22:53)
[2020-11-25] MEDS: MELATONIN 5 MG TABLETS PO SCH (22:53)
[2020-11-25] MEDS: THIAMINE HCL 100 MG TABLET (FP) PO SCH (22:53)
[2020-11-26] MEDS: LORazepam 1 MG TABLET PO SCH ×2 (05:40→11:23)
[2020-11-26] MEDS: hydrOXYzine PAMOATE 25 MG CAPSULE (FP) PO SCH (05:41)
[2020-11-26] MEDS ORDERED: METHADONE HCL 10 MG TABLET PO ONE (06:00)
[2020-11-26 06:58] VITALS: PULSE 87
[2020-11-26 08:58] VITALS: BP 158/99; TEMP 97.4
[2020-11-26] MEDS ORDERED: hydrOXYzine PAMOATE 25 MG CAPSULE (FP) PO PRN (09:08)
[2020-11-26] MEDS ORDERED: amLODIPine BESYLATE 5 MG TABLET (FP) PO SCH (10:00)
[2020-11-26] MEDS: NICOTINE 21 MG/24 HOURS TOPICAL PATCH TD SCH (11:23)
[2020-11-26] MEDS: PRENATAL VITAMINS W/ FOLIC ACID TABLET (FP) PO SCH (11:23)
[2020-11-26] MEDS: LACTULOSE 20 GM/30 ML UDC (FOR ORAL USE ONLY) PO SCH (11:23)
[2020-11-27] MEDS ORDERED: LORazepam 0.5 MG TABLET PO PRN
[2020-11-27] MEDS ORDERED: LORazepam 0.5 MG TABLET PO SCH (05:00)
[2020-11-28] MEDS ORDERED: LORazepam 0.5 MG TABLET PO ONE (05:00)
== END 2020-11-26 09:22 | disposition left against medical advice (07) | DRG 770 ==
LOC: YASAS 14:41 → Y3N 18:43
PROVIDERS: ADMIT Allergy & Immunology; ATTEND Allergy & Immunology
PROC: HZ2ZZZZ Detoxification Services for Substance Abuse Treatment (ICD-10-PCS; principal; 2020-11-24)
DX: F10.230 Alcohol dependence with withdrawal, uncomplicated (principal); F11.20 Opioid dependence, uncomplicated; F14.20 Cocaine dependence, uncomplicated; F12.20 Cannabis dependence, uncomplicated; F17.210 Nicotine dependence, cigarettes, uncomplicated; F10.282 Alcohol dependence with alcohol-induced sleep disorder; F10.24 Alcohol dependence with alcohol-induced mood disorder; F25.9 Schizoaffective disorder, unspecified; F31.9 Bipolar disorder, unspecified; F41.9 Anxiety disorder, unspecified; F51.05 Insomnia due to other mental disorder; E72.20 Disorder of urea cycle metabolism, unspecified; I10 Essential (primary) hypertension; J44.9 Chronic obstructive pulmonary disease, unspecified; R74.01 Elevation of levels of liver transaminase levels; Z91.018 Allergy to other foods; Z88.8 Allergy status to other drugs, medicaments and biological substances
CPT/HCPCS: 36415; 80053; 82140; 85027; 86780; C9803; U0003

== ENCOUNTER 2021-03-21 17:43 | Inpatient (IN) | payer OTHER ==
[2021-03-21 20:59] VITALS: BMI 25.2
[2021-03-21] MEDS ORDERED: LORazepam 1 MG TABLET PO PRN (21:04)
[2021-03-21] MEDS ORDERED: IBUPROFEN 400 MG TABLET (FP) PO PRN (21:04)
[2021-03-21] MEDS ORDERED: MAGNESIUM HYDROX 2400MG/30ML ORAL SUSPENSION 30 ML CUP PO PRN (21:04)
[2021-03-21] MEDS ORDERED: MAGNESIUM CITRATE 300 ML BOTTLE PO PRN (21:04)
[2021-03-21] MEDS ORDERED: MAG HYDROX/AL HYDROX/SIMETH 30 ML UNIT-DOSE CUP PO PRN (21:04)
[2021-03-21] MEDS ORDERED: NICOTINE POLACRILEX 2 MG GUM BUC PRN (21:04)
[2021-03-21] MEDS ORDERED: ONDANSETRON *ODT* 4 MG TABLET SL PRN (21:04)
[2021-03-21] MEDS ORDERED: BISMUTH SUBSALICYLATE 524 MG/30 ML UD PO PRN (21:04)
[2021-03-21] MEDS ORDERED: ACETAMINOPHEN 325 MG TABLET (FP) PO PRN ×2 (21:04)
[2021-03-21] MEDS ORDERED: METHOCARBAMOL 500 MG TABLET PO PRN (21:04)
[2021-03-21] MEDS ORDERED: MENTHOL/PHENOL 1 EACH UD MM PRN (21:04)
[2021-03-22] MEDS: LORazepam 2 MG TABLET PO SCH ×2 (00:02→06:03)
[2021-03-22] MEDS: THIAMINE HCL 100 MG TABLET (FP) PO SCH ×2 (00:02→22:43)
[2021-03-22] MEDS: MELATONIN 5 MG TABLETS PO SCH ×2 (00:03→22:43)
[2021-03-22] MEDS ORDERED: chlordiazePOXIDE HCL 25 MG CAPSULE PO PRN (09:42)
[2021-03-22] MEDS: PRENATAL VITAMINS W/ FOLIC ACID TABLET (FP) PO SCH (10:39)
[2021-03-22] MEDS: NICOTINE 14 MG/24 HOURS TOPICAL PATCH TD SCH (10:39)
[2021-03-22] MEDS: chlordiazePOXIDE HCL 25 MG CAPSULE PO SCH ×3 (10:41→22:43)
[2021-03-22] MEDS: METHADONE HCL 10 MG TABLET PO SCH (10:41)
[2021-03-22] MEDS: chlorproMAZINE HCL 100 MG TABLET PO SCH ×2 (11:19→22:43)
[2021-03-22 11:28] LABS: HEMATOCRIT 36.4 % (35.4-49); HEMOGLOBIN 12.3 GM/dL (11.7-16.9); MCH 30.8 pg (25.7-33.7); MCHC 33.7 g/dl (32.0-35.9); MEAN CELL VOLUME 91.6 fl (80-96); MEAN PLT VOLUME 8.9 fl (7.5-11.1); PLATELET COUNT 197 K/MM3 (134-434); RBC 3.97 M/mm3 (4.00-5.60); RDW 15.2 % (11.9-15.9); WHITE BLOOD COUNT 3.2 K/mm3 (4.0-10.0)
[2021-03-22 11:40] LABS: CALCIUM 8.9 mg/dL (8.5-10.1)
[2021-03-22 11:41] LABS: ALBUMIN 3.9 g/dl (3.4-5.0); BLOOD UREA NITROGEN 13.2 mg/dL (7-18)
[2021-03-22 11:43] LABS: CREATININE 0.6 mg/dL (0.55-1.3)
[2021-03-22 11:45] LABS: BILIRUBIN,TOTAL 0.6 mg/dL (0.2-1); TOT PROT 7.5 g/dl (6.4-8.2)
[2021-03-23] MEDS ORDERED: LORazepam 1 MG TABLET PO SCH (05:00)
[2021-03-23] MEDS: chlordiazePOXIDE HCL 25 MG CAPSULE PO SCH ×4 (05:55→23:03)
[2021-03-23] MEDS: METHADONE HCL 10 MG TABLET PO SCH (05:56)
[2021-03-23] MEDS: PRENATAL VITAMINS W/ FOLIC ACID TABLET (FP) PO SCH (10:21)
[2021-03-23] MEDS: chlorproMAZINE HCL 100 MG TABLET PO SCH ×2 (10:22→23:03)
[2021-03-23] MEDS: NICOTINE 14 MG/24 HOURS TOPICAL PATCH TD SCH (10:22)
[2021-03-23] MEDS: THIAMINE HCL 100 MG TABLET (FP) PO SCH (23:03)
[2021-03-23] MEDS: MELATONIN 5 MG TABLETS PO SCH (23:03)
[2021-03-24] MEDS ORDERED: LORazepam 0.5 MG TABLET PO PRN
[2021-03-24] MEDS ORDERED: LORazepam 0.5 MG TABLET PO SCH (05:00)
[2021-03-24] MEDS: chlordiazePOXIDE HCL 25 MG CAPSULE PO SCH ×2 (06:21→10:18)
[2021-03-24] MEDS: METHADONE HCL 10 MG TABLET PO SCH (06:21)
[2021-03-24] MEDS: NICOTINE 14 MG/24 HOURS TOPICAL PATCH TD SCH (10:17)
[2021-03-24] MEDS: PRENATAL VITAMINS W/ FOLIC ACID TABLET (FP) PO SCH (10:17)
[2021-03-24] MEDS: chlorproMAZINE HCL 100 MG TABLET PO SCH (10:19)
[2021-03-24 14:42] VITALS: BP 127/91; PULSE 112; TEMP 97.3
[2021-03-25] MEDS ORDERED: chlordiazePOXIDE HCL 10 MG CAPSULE PO PRN
[2021-03-25] MEDS ORDERED: chlordiazePOXIDE HCL 10 MG CAPSULE PO SCH (05:00)
[2021-03-25] MEDS ORDERED: LORazepam 0.5 MG TABLET PO ONE (05:00)
[2021-03-26] MEDS ORDERED: chlordiazePOXIDE HCL 10 MG CAPSULE PO SCH (05:00)
[2021-03-27] MEDS ORDERED: chlordiazePOXIDE HCL 10 MG CAPSULE PO ONE (05:00)
== END 2021-03-24 15:57 | disposition left against medical advice (07) | DRG 770 ==
LOC: YASAS 17:43 → Y3N 22:10
PROVIDERS: ADMIT Allergy & Immunology; ATTEND Allergy & Immunology
PROC: HZ2ZZZZ Detoxification Services for Substance Abuse Treatment (ICD-10-PCS; principal; 2021-03-21)
DX: F10.230 Alcohol dependence with withdrawal, uncomplicated (principal); F11.23 Opioid dependence with withdrawal; F17.210 Nicotine dependence, cigarettes, uncomplicated; F25.9 Schizoaffective disorder, unspecified; F31.9 Bipolar disorder, unspecified; F41.9 Anxiety disorder, unspecified; J44.9 Chronic obstructive pulmonary disease, unspecified; B18.2 Chronic viral hepatitis C; R94.5 Abnormal results of liver function studies; Z91.048 Other nonmedicinal substance allergy status; Z91.013 Allergy to seafood
CPT/HCPCS: 36415; 80053; 85027; 86780; C9803; U0003; U0005

== ENCOUNTER 2021-06-26 10:20 | Inpatient (IN) | payer OTHER ==
[2021-06-26 11:23] VITALS: BMI 25.2
[2021-06-26] MEDS ORDERED: ACETAMINOPHEN 325 MG TABLET (FP) PO PRN ×2 (12:38)
[2021-06-26] MEDS ORDERED: IBUPROFEN 400 MG TABLET (FP) PO PRN (12:38)
[2021-06-26] MEDS ORDERED: BISMUTH SUBSALICYLATE 262 MG/15 ML BTL PO PRN (12:38)
[2021-06-26] MEDS ORDERED: MENTHOL/PHENOL 1 EACH UD MM PRN (12:38)
[2021-06-26] MEDS ORDERED: METHOCARBAMOL 500 MG TABLET PO PRN (12:38)
[2021-06-26] MEDS ORDERED: MAGNESIUM HYDROX 2400MG/30ML ORAL SUSPENSION 30 ML CUP PO PRN (12:38)
[2021-06-26] MEDS ORDERED: MAG HYDROX/AL HYDROX/SIMETH 30 ML UNIT-DOSE CUP PO PRN (12:38)
[2021-06-26] MEDS ORDERED: ONDANSETRON *ODT* 4 MG TABLET SL PRN (12:38)
[2021-06-26] MEDS ORDERED: MAGNESIUM CITRATE 300 ML BOTTLE PO PRN (12:38)
[2021-06-26] MEDS ORDERED: NICOTINE 10 MG CARTRIDGE (INHALER) IH PRN (12:38)
[2021-06-26] MEDS ORDERED: LORazepam 1 MG TABLET PO PRN (12:38)
[2021-06-26] MEDS: NICOTINE 7 MG/24 HOURS TOPICAL PATCH TD SCH (13:04)
[2021-06-26] MEDS: PRENATAL VITAMINS W/ FOLIC ACID TABLET (FP) PO SCH (13:05)
[2021-06-26] MEDS ORDERED: hydrOXYzine PAMOATE 25 MG CAPSULE (FP) PO SCH (14:00)
[2021-06-26 16:40] LABS: HEMOGLOBIN 12.6 GM/dL (11.7-16.9); MCH 31.7 pg (25.7-33.7); MCHC 33.3 g/dl (32.0-35.9); MEAN CELL VOLUME 95.1 fl (80-96); MEAN PLT VOLUME 8.8 fl (7.5-11.1); PLATELET COUNT 243 10^3/uL (134-434); RBC 3.99 M/mm3 (4.00-5.60); RDW 16.1 % (11.9-15.9); WHITE BLOOD COUNT 5.6 K/mm3 (4.0-10.0)
[2021-06-26 16:48] LABS: CALCIUM 9.1 mg/dL (8.5-10.1)
[2021-06-26 16:49] LABS: BLOOD UREA NITROGEN 10.9 mg/dL (7-18)
[2021-06-26 16:52] LABS: CREATININE 0.7 mg/dL (0.55-1.3)
[2021-06-26 16:54] LABS: BILIRUBIN,TOTAL 0.2 mg/dL (0.2-1); TOT PROT 7.9 g/dl (6.4-8.2)
[2021-06-26] MEDS: LORazepam 2 MG TABLET PO SCH ×2 (17:40→22:47)
[2021-06-26] MEDS: hydrOXYzine PAMOATE 25 MG CAPSULE (FP) PO PRN (17:42)
[2021-06-26] MEDS ORDERED: MELATONIN 5 MG TABLETS PO SCH (22:00)
[2021-06-26] MEDS: THIAMINE HCL 100 MG TABLET (FP) PO SCH (22:47)
[2021-06-26] MEDS: chlorproMAZINE HCL 25 MG TABLET PO SCH (22:47)
[2021-06-26] MEDS: GABAPENTIN 100 MG CAPSULE PO SCH (22:47)
[2021-06-26] MEDS: SUVOREXANT 5 MG TABLET PO PRN (22:49)
[2021-06-27] MEDS: methaDONE HCL 10 MG TABLET PO SCH (06:52)
[2021-06-27] MEDS: GABAPENTIN 100 MG CAPSULE PO SCH ×3 (06:52→22:47)
[2021-06-27] MEDS: LORazepam 2 MG TABLET PO SCH ×4 (06:52→22:46)
[2021-06-27] MEDS: amLODIPine BESYLATE 10 MG TABLET (FP) PO SCH (11:30)
[2021-06-27] MEDS: SERTRALINE HCL 50 MG TABLET (FP) PO SCH (11:30)
[2021-06-27] MEDS: PRENATAL VITAMINS W/ FOLIC ACID TABLET (FP) PO SCH (11:30)
[2021-06-27] MEDS: NICOTINE 7 MG/24 HOURS TOPICAL PATCH TD SCH (11:30)
[2021-06-27] MEDS: chlorproMAZINE HCL 25 MG TABLET PO SCH ×2 (11:31→22:47)
[2021-06-27] MEDS: hydrOXYzine PAMOATE 25 MG CAPSULE (FP) PO PRN (18:27)
[2021-06-27] MEDS: THIAMINE HCL 100 MG TABLET (FP) PO SCH (22:47)
[2021-06-27] MEDS: SUVOREXANT 5 MG TABLET PO PRN (22:48)
[2021-06-28] MEDS: GABAPENTIN 100 MG CAPSULE PO SCH ×3 (05:48→22:56)
[2021-06-28] MEDS: methaDONE HCL 10 MG TABLET PO SCH (05:48)
[2021-06-28] MEDS: LORazepam 1 MG TABLET PO SCH ×4 (05:49→22:56)
[2021-06-28] MEDS: chlorproMAZINE HCL 25 MG TABLET PO SCH ×2 (10:42→22:56)
[2021-06-28] MEDS: SERTRALINE HCL 50 MG TABLET (FP) PO SCH (10:42)
[2021-06-28] MEDS: PRENATAL VITAMINS W/ FOLIC ACID TABLET (FP) PO SCH (10:42)
[2021-06-28] MEDS: NICOTINE 7 MG/24 HOURS TOPICAL PATCH TD SCH (10:43)
[2021-06-28] MEDS: hydrOXYzine PAMOATE 25 MG CAPSULE (FP) PO PRN (10:43)
[2021-06-28] MEDS: amLODIPine BESYLATE 10 MG TABLET (FP) PO SCH (10:45)
[2021-06-28] MEDS: THIAMINE HCL 100 MG TABLET (FP) PO SCH (22:56)
[2021-06-29] MEDS ORDERED: LORazepam 0.5 MG TABLET PO PRN
[2021-06-29] MEDS: GABAPENTIN 100 MG CAPSULE PO SCH ×2 (05:16→14:59)
[2021-06-29] MEDS: methaDONE HCL 10 MG TABLET PO SCH (05:16)
[2021-06-29] MEDS: LORazepam 0.5 MG TABLET PO SCH ×3 (05:16→19:00)
[2021-06-29] MEDS: chlorproMAZINE HCL 25 MG TABLET PO SCH (13:07)
[2021-06-29] MEDS: amLODIPine BESYLATE 10 MG TABLET (FP) PO SCH (13:08)
[2021-06-29] MEDS: NICOTINE 7 MG/24 HOURS TOPICAL PATCH TD SCH (13:08)
[2021-06-29] MEDS: PRENATAL VITAMINS W/ FOLIC ACID TABLET (FP) PO SCH (13:09)
[2021-06-29] MEDS: SERTRALINE HCL 50 MG TABLET (FP) PO SCH (13:10)
[2021-06-29 14:16] VITALS: BP 120/77; PULSE 68; TEMP 97.3
[2021-06-30] MEDS ORDERED: LORazepam 0.5 MG TABLET PO ONE (05:00)
== END 2021-06-29 20:11 | disposition home or self-care (01) | DRG 773 ==
LOC: YASAS 10:20 → Y3N 12:20
PROVIDERS: ADMIT Allergy & Immunology; ATTEND Allergy & Immunology
PROC: HZ2ZZZZ Detoxification Services for Substance Abuse Treatment (ICD-10-PCS; principal; 2021-06-26)
DX: F10.230 Alcohol dependence with withdrawal, uncomplicated (principal); F11.20 Opioid dependence, uncomplicated; F14.20 Cocaine dependence, uncomplicated; F12.20 Cannabis dependence, uncomplicated; F17.210 Nicotine dependence, cigarettes, uncomplicated; F10.282 Alcohol dependence with alcohol-induced sleep disorder; F10.24 Alcohol dependence with alcohol-induced mood disorder; F20.9 Schizophrenia, unspecified; F33.9 Major depressive disorder, recurrent, unspecified; F41.9 Anxiety disorder, unspecified; I10 Essential (primary) hypertension; J44.9 Chronic obstructive pulmonary disease, unspecified; B18.2 Chronic viral hepatitis C; Z91.5 Personal history of self-harm; Z91.013 Allergy to seafood; Z88.8 Allergy status to other drugs, medicaments and biological substances
CPT/HCPCS: 36415; 80053; 85027; 86780; C9803; U0003; U0005

== ENCOUNTER 2021-10-11 16:51 | Inpatient (IN) | payer OTHER ==
[2021-10-11 17:55] VITALS: BMI 23.5
[2021-10-11] MEDS ORDERED: MENTHOL/PHENOL 1 EACH UD MM PRN (20:11)
[2021-10-11] MEDS ORDERED: IBUPROFEN 400 MG TABLET (FP) PO PRN (20:11)
[2021-10-11] MEDS ORDERED: NALOXONE (NARCAN) HCL 4 MG/0.1 ML SPRAY NS PRN (20:11)
[2021-10-11] MEDS ORDERED: ACETAMINOPHEN 325 MG TABLET (FP) PO PRN ×2 (20:11)
[2021-10-11] MEDS ORDERED: DICYCLOMINE HCL 10 MG CAPSULE PO PRN (20:11)
[2021-10-11] MEDS ORDERED: guaiFENesin 200 MG/10 ML 10 ML UNIT-DOSE CUPS PO PRN (20:11)
[2021-10-11] MEDS ORDERED: MAGNESIUM HYDROX 2400MG/30ML ORAL SUSPENSION 30 ML CUP PO PRN (20:11)
[2021-10-11] MEDS ORDERED: ONDANSETRON *ODT* 4 MG TABLET SL PRN (20:11)
[2021-10-11] MEDS ORDERED: P-EPHED 60MG/TRIPROLIDI 2.5MG TABLET PO PRN (20:11)
[2021-10-11] MEDS ORDERED: NALOXONE HCL 0.4 MG/ML VIAL IM PRN (20:11)
[2021-10-11] MEDS ORDERED: MAG HYDROX/AL HYDROX/SIMETH 30 ML UNIT-DOSE CUP PO PRN (20:11)
[2021-10-11] MEDS ORDERED: MAGNESIUM CITRATE 300 ML BOTTLE PO PRN (20:11)
[2021-10-11] MEDS ORDERED: NICOTINE 10 MG CARTRIDGE (INHALER) IH PRN (20:11)
[2021-10-11] MEDS ORDERED: BISMUTH SUBSALICYLATE 524 MG/30 ML PO PRN (20:11)
[2021-10-11] MEDS ORDERED: MELATONIN 5 MG TABLETS PO SCH (22:00)
[2021-10-11] MEDS: THIAMINE HCL 100 MG TABLET (FP) PO SCH (22:37)
[2021-10-11] MEDS: hydrOXYzine PAMOATE 25 MG CAPSULE (FP) PO SCH (23:30)
[2021-10-12] MEDS: METHOCARBAMOL 500 MG TABLET PO PRN ×2 (06:01→13:44)
[2021-10-12] MEDS: hydrOXYzine PAMOATE 25 MG CAPSULE (FP) PO SCH (06:01)
[2021-10-12] MEDS ORDERED: cloNIDine HCL 0.1 MG TABLET PO ONE ×2 (06:44→13:46)
[2021-10-12] MEDS ORDERED: chlordiazePOXIDE HCL 25 MG CAPSULE PO ONE (09:23)
[2021-10-12] MEDS: amLODIPine BESYLATE 10 MG TABLET (FP) PO SCH (09:43)
[2021-10-12] MEDS: SERTRALINE HCL 50 MG TABLET (FP) PO SCH (09:44)
[2021-10-12] MEDS: methaDONE HCL 10 MG TABLET PO SCH (09:45)
[2021-10-12] MEDS: NICOTINE 14 MG/24 HOURS TOPICAL PATCH TD SCH (09:46)
[2021-10-12] MEDS: PRENATAL VITAMINS W/ FOLIC ACID TABLET (FP) PO SCH (09:46)
[2021-10-12 13:17] LABS: HEMATOCRIT 35.2 % (35.4-49); HEMOGLOBIN 11.8 GM/dL (11.7-16.9); MCH 31.9 pg (25.7-33.7); MCHC 33.5 g/dl (32.0-35.9); PLATELET COUNT 141 10^3/uL (134-434); RBC 3.71 M/mm3 (4.00-5.60); RDW 15.6 % (11.9-15.9); WHITE BLOOD COUNT 4.7 K/mm3 (4.0-10.0)
[2021-10-12 13:34] LABS: ALBUMIN 3.9 g/dl (3.4-5.0); BLOOD UREA NITROGEN 11.8 mg/dL (7-18)
[2021-10-12 13:37] LABS: CREATININE 0.6 mg/dL (0.55-1.3)
[2021-10-12 13:39] LABS: BILIRUBIN,TOTAL 0.6 mg/dL (0.2-1); TOT PROT 7.9 g/dl (6.4-8.2)
[2021-10-12] MEDS: chlordiazePOXIDE HCL 25 MG CAPSULE PO PRN (13:44)
[2021-10-12] MEDS: chlordiazePOXIDE HCL 25 MG CAPSULE PO SCH ×2 (17:48→22:15)
[2021-10-12] MEDS ORDERED: SUVOREXANT 10 MG TABLET PO PRN ×2 (22:00)
[2021-10-12] MEDS: THIAMINE HCL 100 MG TABLET (FP) PO SCH (22:16)
[2021-10-13] MEDS: methaDONE HCL 10 MG TABLET PO SCH (06:11)
[2021-10-13] MEDS: chlordiazePOXIDE HCL 25 MG CAPSULE PO SCH ×4 (06:11→22:19)
[2021-10-13] MEDS: amLODIPine BESYLATE 10 MG TABLET (FP) PO SCH (10:07)
[2021-10-13] MEDS: SERTRALINE HCL 50 MG TABLET (FP) PO SCH (10:07)
[2021-10-13] MEDS: METHOCARBAMOL 500 MG TABLET PO PRN (10:07)
[2021-10-13] MEDS: PRENATAL VITAMINS W/ FOLIC ACID TABLET (FP) PO SCH (10:07)
[2021-10-13] MEDS: NICOTINE 14 MG/24 HOURS TOPICAL PATCH TD SCH (10:10)
[2021-10-13] MEDS ORDERED: LISINOPRIL 10 MG TABLET PO ONE (14:43)
[2021-10-13] MEDS: THIAMINE HCL 100 MG TABLET (FP) PO SCH (22:19)
[2021-10-14] MEDS: methaDONE HCL 10 MG TABLET PO SCH (06:40)
[2021-10-14] MEDS: chlordiazePOXIDE HCL 25 MG CAPSULE PO SCH ×4 (06:41→18:48)
[2021-10-14] MEDS: PRENATAL VITAMINS W/ FOLIC ACID TABLET (FP) PO SCH (10:15)
[2021-10-14] MEDS: amLODIPine BESYLATE 10 MG TABLET (FP) PO SCH (10:16)
[2021-10-14] MEDS: METHOCARBAMOL 500 MG TABLET PO PRN (10:16)
[2021-10-14] MEDS: SERTRALINE HCL 50 MG TABLET (FP) PO SCH (10:16)
[2021-10-14] MEDS: NICOTINE 14 MG/24 HOURS TOPICAL PATCH TD SCH (10:17)
[2021-10-14] MEDS: chlordiazePOXIDE HCL 25 MG CAPSULE PO PRN (18:03)
[2021-10-14] MEDS ORDERED: chlorproMAZINE HCL 25 MG TABLET PO SCH (22:00)
[2021-10-15] MEDS ORDERED: chlordiazePOXIDE HCL 10 MG CAPSULE PO PRN
[2021-10-15] MEDS: THIAMINE HCL 100 MG TABLET (FP) PO SCH (01:23)
[2021-10-15] MEDS ORDERED: chlordiazePOXIDE HCL 10 MG CAPSULE PO SCH (05:00)
[2021-10-15] MEDS: methaDONE HCL 10 MG TABLET PO SCH (06:07)
[2021-10-15 10:08] VITALS: BP 107/75; PULSE 92; TEMP 96.1
[2021-10-16] MEDS ORDERED: chlordiazePOXIDE HCL 10 MG CAPSULE PO SCH (05:00)
[2021-10-17] MEDS ORDERED: chlordiazePOXIDE HCL 10 MG CAPSULE PO ONE (05:00)
== END 2021-10-15 11:05 | disposition left against medical advice (07) | DRG 770 ==
LOC: YASAS 16:51 → UNDOADMIN 21:37 → Y6N 21:37
PROVIDERS: ADMIT Allergy & Immunology; ATTEND Allergy & Immunology
PROC: HZ2ZZZZ Detoxification Services for Substance Abuse Treatment (ICD-10-PCS; principal; 2021-10-11)
DX: F10.230 Alcohol dependence with withdrawal, uncomplicated (principal); F10.24 Alcohol dependence with alcohol-induced mood disorder; F11.20 Opioid dependence, uncomplicated; F14.20 Cocaine dependence, uncomplicated; F12.20 Cannabis dependence, uncomplicated; F17.213 Nicotine dependence, cigarettes, with withdrawal; F31.9 Bipolar disorder, unspecified; F19.24 Other psychoactive substance dependence with psychoactive substance-induced mood disorder; F19.282 Other psychoactive substance dependence with psychoactive substance-induced sleep disorder; F20.9 Schizophrenia, unspecified; I10 Essential (primary) hypertension; B18.2 Chronic viral hepatitis C; J43.9 Emphysema, unspecified; R74.01 Elevation of levels of liver transaminase levels; R73.09 Other abnormal glucose; Z91.013 Allergy to seafood; Z88.8 Allergy status to other drugs, medicaments and biological substances; Z56.0 Unemployment, unspecified
CPT/HCPCS: 36415; 80053; 82962; 85027; 86780; C9803; J0735; U0003; U0005

== ENCOUNTER 2023-09-15 11:32 | Inpatient (IN) | payer OTHER ==
[2023-09-15 11:58] VITALS: BMI 21.9
[2023-09-15] MEDS ORDERED: LOPERAMIDE HCL 2 MG CAPSULE PO PRN (13:27)
[2023-09-15] MEDS ORDERED: POLYETHYLENE GLYCOL (HEALTHYLAX) 3350 17 GM PACKET PO PRN (13:27)
[2023-09-15] MEDS ORDERED: METHOCARBAMOL 500 MG TABLET PO PRN (13:27)
[2023-09-15] MEDS ORDERED: BENZONATATE 200 MG CAPSULE PO PRN (13:27)
[2023-09-15] MEDS ORDERED: MAG HYDROX/AL HYDROX/SIMETH 30 ML UNIT-DOSE CUP PO PRN (13:27)
[2023-09-15] MEDS ORDERED: DICYCLOMINE HCL 10 MG CAPSULE PO PRN (13:27)
[2023-09-15] MEDS ORDERED: BISMUTH SUBSALICYLATE 524 MG/30 ML PO PRN (13:27)
[2023-09-15] MEDS ORDERED: BENZOCAINE/MENTHOL (CHLORASEPTIC ) LOZENGE MM PRN (13:27)
[2023-09-15] MEDS ORDERED: hydrOXYzine PAMOATE 25 MG CAPSULE (FP) PO PRN (13:27)
[2023-09-15] MEDS ORDERED: guaiFENesin 600 MG TABLET.ER (FP) PO PRN (13:27)
[2023-09-15] MEDS ORDERED: ACETAMINOPHEN 325 MG TABLET (FP) PO PRN (13:27)
[2023-09-15] MEDS ORDERED: NALOXONE HCL 0.4 MG/ML VIAL IM PRN (13:27)
[2023-09-15] MEDS ORDERED: NALOXONE HCL (KLOXXADO) 8 MG SPRAY NS PRN (13:27)
[2023-09-15] MEDS ORDERED: ONDANSETRON *ODT* 4 MG TABLET SL PRN (13:27)
[2023-09-15] MEDS ORDERED: IBUPROFEN 400 MG TABLET (FP) PO PRN (13:27)
[2023-09-15] MEDS ORDERED: NICOTINE POLACRILEX 4 MG GUM BUC PRN (13:27)
[2023-09-15] MEDS ORDERED: LORazepam 1 MG TABLET PO PRN (13:27)
[2023-09-15] MEDS ORDERED: IBUPROFEN 600 MG TABLET (FP) PO PRN (13:27)
[2023-09-15] MEDS ORDERED: MAGNESIUM HYDROX 2400MG/30ML ORAL SUSPENSION 30 ML CUP PO PRN (13:27)
[2023-09-15] MEDS: PRENATAL VITAMINS W/ FOLIC ACID TABLET (FP) PO SCH (13:56)
[2023-09-15 16:52] LABS: HEMATOCRIT 40.9 % (35.4-49); HEMOGLOBIN 13.5 GM/dL (11.7-16.9); MCH 30.1 pg (25.7-33.7); MCHC 33.1 g/dl (32.0-35.9); MEAN CELL VOLUME 90.9 fl (80-96); MEAN PLT VOLUME 8.4 fl (7.5-11.1); PLATELET COUNT 269 10^3/uL (134-434); RDW 15.3 % (11.9-15.9); WHITE BLOOD COUNT 6.9 K/mm3 (4.0-10.0)
[2023-09-15 17:16] LABS: POTASSIUM 3.5 mmol/L (3.5-5.1)
[2023-09-15 17:18] LABS: ALBUMIN 4.2 g/dl (3.4-5.0); CALCIUM 9.2 mg/dL (8.5-10.1)
[2023-09-15 17:21] LABS: CREATININE 1.9 mg/dL (0.55-1.3)
[2023-09-15 17:23] LABS: BILIRUBIN,TOTAL 0.4 mg/dL (0.2-1); TOT PROT 8.6 g/dl (6.4-8.2)
[2023-09-15] MEDS: LORazepam 2 MG TABLET PO SCH ×2 (17:43→22:26)
[2023-09-15] MEDS ORDERED: MELATONIN 5 MG TABLETS PO SCH (22:00)
[2023-09-15] MEDS ORDERED: THIAMINE HCL 100 MG TABLET (FP) PO SCH (22:00)
[2023-09-16] MEDS: LORazepam 2 MG TABLET PO SCH (05:56)
[2023-09-16] MEDS ORDERED: methaDONE HCL 10 MG TABLET PO SCH (06:00)
[2023-09-16 08:54] VITALS: BP 128/78; PULSE 70; RESP 18; TEMP 98.3
[2023-09-16] MEDS ORDERED: amLODIPine BESYLATE 10 MG TABLET (FP) PO SCH (10:00)
[2023-09-16] MEDS: PRENATAL VITAMINS W/ FOLIC ACID TABLET (FP) PO SCH (10:05)
[2023-09-17] MEDS ORDERED: LORazepam 1 MG TABLET PO SCH (05:00)
[2023-09-18] MEDS ORDERED: LORazepam 0.5 MG TABLET PO PRN
[2023-09-18] MEDS ORDERED: LORazepam 0.5 MG TABLET PO SCH (05:00)
[2023-09-19] MEDS ORDERED: LORazepam 0.5 MG TABLET PO ONE (05:00)
== END 2023-09-16 10:22 | disposition left against medical advice (07) | DRG 770 ==
LOC: YASAS 11:32 → Y3N 14:00
PROVIDERS: ADMIT Allergy & Immunology; ATTEND Surgery
PROC: HZ2ZZZZ Detoxification Services for Substance Abuse Treatment (ICD-10-PCS; principal; 2023-09-15)
DX: F10.230 Alcohol dependence with withdrawal, uncomplicated (principal); F11.20 Opioid dependence, uncomplicated; F17.210 Nicotine dependence, cigarettes, uncomplicated; I10 Essential (primary) hypertension; J43.9 Emphysema, unspecified; Z88.0 Allergy status to penicillin
CPT/HCPCS: 36415; 80053; 80307; 85027; 86780; 87635; 87811; 93005; 93010

== ENCOUNTER 2023-11-23 11:22 | Inpatient (IN) | payer OTHER ==
[2023-11-23 11:47] VITALS: BMI 24.0
[2023-11-23] MEDS ORDERED: BISMUTH SUBSALICYLATE 524 MG/30 ML PO PRN (12:17)
[2023-11-23] MEDS ORDERED: DICYCLOMINE HCL 10 MG CAPSULE PO PRN (12:17)
[2023-11-23] MEDS ORDERED: IBUPROFEN 400 MG TABLET (FP) PO PRN (12:17)
[2023-11-23] MEDS ORDERED: MAGNESIUM HYDROX 2400MG/30ML ORAL SUSPENSION 30 ML CUP PO PRN (12:17)
[2023-11-23] MEDS ORDERED: NALOXONE HCL 0.4 MG/ML VIAL IM PRN (12:17)
[2023-11-23] MEDS ORDERED: MAG HYDROX/AL HYDROX/SIMETH 30 ML UNIT-DOSE CUP PO PRN (12:17)
[2023-11-23] MEDS ORDERED: ACETAMINOPHEN 325 MG TABLET (FP) PO PRN (12:17)
[2023-11-23] MEDS ORDERED: hydrOXYzine PAMOATE 25 MG CAPSULE (FP) PO PRN (12:17)
[2023-11-23] MEDS ORDERED: POLYETHYLENE GLYCOL (HEALTHYLAX) 3350 17 GM PACKET PO PRN (12:17)
[2023-11-23] MEDS ORDERED: IBUPROFEN 600 MG TABLET (FP) PO PRN (12:17)
[2023-11-23] MEDS ORDERED: BENZOCAINE/MENTHOL (CHLORASEPTIC ) LOZENGE MM PRN (12:17)
[2023-11-23] MEDS ORDERED: LOPERAMIDE HCL 2 MG CAPSULE PO PRN (12:17)
[2023-11-23] MEDS ORDERED: ONDANSETRON *ODT* 4 MG TABLET SL PRN (12:17)
[2023-11-23] MEDS ORDERED: guaiFENesin 600 MG TABLET.ER (FP) PO PRN (12:17)
[2023-11-23] MEDS ORDERED: LORazepam 1 MG TABLET PO PRN (12:17)
[2023-11-23] MEDS ORDERED: NICOTINE POLACRILEX 2 MG GUM BUC PRN (12:17)
[2023-11-23] MEDS ORDERED: NALOXONE HCL (KLOXXADO) 8 MG SPRAY NS PRN (12:17)
[2023-11-23] MEDS ORDERED: BENZONATATE 200 MG CAPSULE PO PRN (12:17)
[2023-11-23] MEDS: PRENATAL VITAMINS W/ FOLIC ACID TABLET (FP) PO SCH (15:09)
[2023-11-23] MEDS: LORazepam 2 MG TABLET PO SCH ×2 (17:28→22:14)
[2023-11-23] MEDS: METHOCARBAMOL 500 MG TABLET PO PRN (20:45)
[2023-11-23] MEDS ORDERED: MELATONIN 5 MG TABLETS PO SCH (22:00)
[2023-11-23] MEDS: THIAMINE HCL 100 MG TABLET (FP) PO SCH (22:14)
[2023-11-23] MEDS ORDERED: cloNIDine HCL 0.1 MG TABLET PO ONE (23:37)
[2023-11-24] MEDS: LORazepam 2 MG TABLET PO SCH ×4 (05:57→22:33)
[2023-11-24] MEDS ORDERED: methaDONE HCL 10 MG TABLET PO ONE (09:30)
[2023-11-24] MEDS: METHOCARBAMOL 500 MG TABLET PO PRN ×2 (09:39→22:33)
[2023-11-24] MEDS: amLODIPine BESYLATE 10 MG TABLET (FP) PO SCH (09:39)
[2023-11-24] MEDS: PRENATAL VITAMINS W/ FOLIC ACID TABLET (FP) PO SCH (09:40)
[2023-11-24 11:40] LABS: HEMATOCRIT 36.6 % (35.4-49); HEMOGLOBIN 11.8 GM/dL (11.7-16.9); MCH 30.5 pg (25.7-33.7); MCHC 32.3 g/dl (32.0-35.9); MEAN CELL VOLUME 94.5 fl (80-96); MEAN PLT VOLUME 9.3 fl (7.5-11.1); PLATELET COUNT 166 10^3/uL (134-434); RBC 3.87 M/mm3 (4.00-5.60); WHITE BLOOD COUNT 4.1 K/mm3 (4.0-10.0)
[2023-11-24 11:42] LABS: CHLORIDE 104 mmol/L (98-107); POTASSIUM 4.5 mmol/L (3.5-5.1); SODIUM 139 mmol/L (136-145)
[2023-11-24 11:53] LABS: SGOT/AST 43 U/L (15-37); SGPT/ALT 42 U/L (13-61)
[2023-11-24 11:55] LABS: BILIRUBIN,TOTAL 0.5 mg/dL (0.2-1); TOT PROT 7.4 g/dl (6.4-8.2)
[2023-11-24 11:56] LABS: ALK PHOS 91 U/L (45-117); ANION GAP 6 mmol/L (4-13); BLOOD UREA NITROGEN 14.9 mg/dL (7-18); CALCIUM 9.9 mg/dL (8.5-10.1); CO2 29 mmol/L (21-32)
[2023-11-24 11:58] LABS: ALBUMIN 3.6 g/dl (3.4-5.0); GLUCOSE,RANDOM 108 mg/dL (74-106)
[2023-11-24 12:01] LABS: CREATININE 0.6 mg/dL (0.55-1.3)
[2023-11-24] MEDS: ALBUTEROL SO4 HFA INHALER IH PRN ×2 (17:35→22:37)
[2023-11-24] MEDS: THIAMINE HCL 100 MG TABLET (FP) PO SCH (22:34)
[2023-11-25] MEDS: LORazepam 1 MG TABLET PO SCH ×2 (05:14→10:11)
[2023-11-25] MEDS ORDERED: methaDONE HCL 10 MG TABLET PO SCH (06:00)
[2023-11-25 09:35] VITALS: BP 148/98; PULSE 85; RESP 18; TEMP 97.7
[2023-11-25] MEDS ORDERED: LACTULOSE 20 GM/30 ML UDC (FOR ORAL USE ONLY) PO SCH (10:00)
[2023-11-25] MEDS: amLODIPine BESYLATE 10 MG TABLET (FP) PO SCH (10:10)
[2023-11-25] MEDS: PRENATAL VITAMINS W/ FOLIC ACID TABLET (FP) PO SCH (10:10)
[2023-11-26] MEDS ORDERED: LORazepam 0.5 MG TABLET PO PRN
[2023-11-26] MEDS ORDERED: LORazepam 0.5 MG TABLET PO SCH (05:00)
[2023-11-27] MEDS ORDERED: LORazepam 0.5 MG TABLET PO ONE (05:00)
== END 2023-11-25 10:55 | disposition left against medical advice (07) | DRG 770 ==
LOC: YASAS 11:22 → Y6N 15:22
PROVIDERS: ADMIT Allergy & Immunology; ATTEND Allergy & Immunology
PROC: HZ2ZZZZ Detoxification Services for Substance Abuse Treatment (ICD-10-PCS; principal; 2023-11-23)
DX: F10.230 Alcohol dependence with withdrawal, uncomplicated (principal); F11.20 Opioid dependence, uncomplicated; F13.20 Sedative, hypnotic or anxiolytic dependence, uncomplicated; F14.20 Cocaine dependence, uncomplicated; F12.20 Cannabis dependence, uncomplicated; F19.282 Other psychoactive substance dependence with psychoactive substance-induced sleep disorder; F19.280 Other psychoactive substance dependence with psychoactive substance-induced anxiety disorder; F25.9 Schizoaffective disorder, unspecified; I10 Essential (primary) hypertension; J43.9 Emphysema, unspecified; J45.20 Mild intermittent asthma, uncomplicated; R79.89 Other specified abnormal findings of blood chemistry; Z86.19 Personal history of other infectious and parasitic diseases; Z88.0 Allergy status to penicillin; Z88.8 Allergy status to other drugs, medicaments and biological substances
CPT/HCPCS: 36415; 80053; 80307; 82140; 85027; 86780; 87635

== ENCOUNTER 2024-09-12 09:15 | Inpatient (IN) | payer OTHER ==
[2024-09-12 10:00] VITALS: BMI 23.2
[2024-09-12] MEDS ORDERED: MAG HYDROX/AL HYDROX/SIMETH 30 ML UNIT-DOSE CUP PO PRN (11:13)
[2024-09-12] MEDS ORDERED: BENZOCAINE/MENTHOL (CHLORASEPTIC ) LOZENGE MM PRN (11:13)
[2024-09-12] MEDS ORDERED: POLYETHYLENE GLYCOL (HEALTHYLAX) 3350 17 GM PACKET PO PRN (11:13)
[2024-09-12] MEDS ORDERED: IBUPROFEN 400 MG TABLET (FP) PO PRN (11:13)
[2024-09-12] MEDS ORDERED: NALOXONE (NARCAN) HCL 4 MG/0.1 ML SPRAY NS PRN (11:13)
[2024-09-12] MEDS ORDERED: BENZONATATE 200 MG CAPSULE PO PRN (11:13)
[2024-09-12] MEDS ORDERED: LOPERAMIDE HCL 2 MG CAPSULE PO PRN (11:13)
[2024-09-12] MEDS ORDERED: BISMUTH SUBSALICYLATE 262 MG/15 ML BTL PO PRN (11:13)
[2024-09-12] MEDS ORDERED: DICYCLOMINE HCL 10 MG CAPSULE PO PRN (11:13)
[2024-09-12] MEDS ORDERED: guaiFENesin 600 MG TABLET.ER (FP) PO PRN (11:13)
[2024-09-12] MEDS ORDERED: ACETAMINOPHEN 325 MG TABLET (FP) PO PRN (11:13)
[2024-09-12] MEDS ORDERED: MAGNESIUM HYDROX 2400MG/30ML ORAL SUSPENSION 30 ML CUP PO PRN (11:13)
[2024-09-12] MEDS ORDERED: ALBUTEROL SO4 HFA INHALER IH PRN (11:18)
[2024-09-12] MEDS ORDERED: chlordiazePOXIDE HCL 25 MG CAPSULE ONE (11:49)
[2024-09-12] MEDS ORDERED: amLODIPine BESYLATE 5 MG TABLET (FP) ONE (11:50)
[2024-09-12] MEDS ORDERED: methaDONE HCL 10 MG TABLET (FOR DETOX USE ONLY) ONE (11:50)
[2024-09-12] MEDS ORDERED: BUPRENORPHINE/NALOXONE 0.5 MG/0.125 MG FILM ONE (11:51)
[2024-09-12] MEDS: amLODIPine BESYLATE 10 MG TABLET (FP) PO SCH (11:54)
[2024-09-12] MEDS: methaDONE HCL 10 MG TABLET (FOR DETOX USE ONLY) PO ONE (11:54)
[2024-09-12] MEDS: chlordiazePOXIDE HCL 25 MG CAPSULE PO SCH (11:55)
[2024-09-12] MEDS: BUPRENORPHINE/NALOXONE 0.5 MG/0.125 MG FILM SL ONE ×2 (11:55→22:41)
[2024-09-12] MEDS: cloNIDine HCL 0.1 MG TABLET PO SCH (14:55)
[2024-09-12] MEDS: MELATONIN 5 MG TABLETS PO SCH (22:18)
[2024-09-12] MEDS: THIAMINE 100 MG TABLET PO SCH (22:18)
[2024-09-13] MEDS: hydrOXYzine PAMOATE 25 MG CAPSULE (FP) PO PRN (01:02)
[2024-09-13] MEDS: chlordiazePOXIDE HCL 25 MG CAPSULE PO PRN (01:02)
[2024-09-13] MEDS: METHOCARBAMOL 500 MG TABLET PO PRN (01:02)
[2024-09-13] MEDS: TAMSULOSIN HCL 0.4 MG CAP PO SCH (09:25)
[2024-09-13] MEDS: BUPRENORPHINE/NALOXONE 0.5 MG/0.125 MG FILM SL SCH (10:10)
[2024-09-13] MEDS: ONDANSETRON *ODT* 4 MG TABLET SL PRN (10:12)
[2024-09-13] MEDS: PRENATAL VITAMINS W/ FOLIC ACID TABLET (FP) PO SCH (10:13)
[2024-09-13] MEDS: PANTOPRAZOLE 40 MG TABLET PO SCH (10:13)
[2024-09-13] MEDS: FLUTICASONE/UMECLIDIN/VILANTER(100-62.5-25 TRELEGY ELLIPTA) INAHLER IH SCH (10:17)
[2024-09-13 11:17] LABS: HEMATOCRIT 36.3 % (35.4-49); HEMOGLOBIN 11.8 GM/dL (11.7-16.9); MCH 30.7 pg (25.7-33.7); MCHC 32.4 g/dl (32.0-35.9); MEAN CELL VOLUME 94.6 fl (80-96); MEAN PLT VOLUME 10.2 fl (7.5-11.1); PLATELET COUNT 193 10^3/uL (134-434); RBC 3.84 M/mm3 (4.00-5.60); RDW 15.1 % (11.9-15.9)
[2024-09-13 11:50] LABS: POTASSIUM 3.8 mmol/L (3.5-5.1)
[2024-09-13 12:09] LABS: BLOOD UREA NITROGEN 10.5 mg/dL (7-18)
[2024-09-13 12:10] LABS: CALCIUM 9.4 mg/dL (8.5-10.1)
[2024-09-13 12:14] LABS: BILIRUBIN,TOTAL 0.7 mg/dL (0.2-1); CREATININE 0.6 mg/dL (0.55-1.3)
[2024-09-13 12:15] LABS: TOT PROT 7.2 g/dl (6.4-8.2)
[2024-09-14] MEDS: chlordiazePOXIDE HCL 25 MG CAPSULE PO SCH (05:34)
[2024-09-14] MEDS: BUPRENORPHINE/NALOXONE 2 MG/0.5 MG FILM PACKET SL SCH (10:08)
[2024-09-14] MEDS: methaDONE HCL 10 MG TABLET (FOR DETOX USE ONLY) PO ONE (10:10)
[2024-09-15] MEDS ORDERED: chlordiazePOXIDE HCL 10 MG CAPSULE PO PRN
[2024-09-15] MEDS: chlordiazePOXIDE HCL 10 MG CAPSULE PO SCH (05:23)
[2024-09-15] MEDS: BUPRENORPHINE/NALOXONE 4 MG/1 MG FILM PACKET SL SCH (10:28)
[2024-09-15] MEDS: IBUPROFEN 600 MG TABLET (FP) PO PRN (23:01)
[2024-09-16] MEDS: chlordiazePOXIDE HCL 10 MG CAPSULE PO SCH (05:45)
[2024-09-16] MEDS: methaDONE HCL 10 MG TABLET (FOR DETOX USE ONLY) PO ONE (09:08)
[2024-09-16] MEDS: BUPRENORPHINE/NALOXONE 8 MG/2 MG FILM PACKET SL SCH (09:10)
[2024-09-17] MEDS: chlordiazePOXIDE HCL 10 MG CAPSULE PO ONE (05:33)
[2024-09-17 09:09] VITALS: BP 117/96; PULSE 71; RESP 18; TEMP 97.8
[2024-09-17] MEDS: BUPRENORPHINE/NALOXONE 8 MG/2 MG FILM PACKET SL SCH (09:38)
[2024-09-17] MEDS: NALOXONE (NYS OPIOID OVERDOSE PROGRAM) 4 MG/0.1 ML SPRAY NS PRN (09:43)
== END 2024-09-17 11:39 | disposition other institution (70) | DRG 773 ==
LOC: YASAS 09:15 → Y3N 11:49
PROVIDERS: ADMIT Allergy & Immunology; ATTEND Surgery
PROC: HZ2ZZZZ Detoxification Services for Substance Abuse Treatment (ICD-10-PCS; principal; 2024-09-12)
DX: F11.23 Opioid dependence with withdrawal (principal); F10.230 Alcohol dependence with withdrawal, uncomplicated; F17.210 Nicotine dependence, cigarettes, uncomplicated; F25.9 Schizoaffective disorder, unspecified; F31.9 Bipolar disorder, unspecified; F41.9 Anxiety disorder, unspecified; I10 Essential (primary) hypertension; K21.9 Gastro-esophageal reflux disease without esophagitis; J45.20 Mild intermittent asthma, uncomplicated; N40.0 Benign prostatic hyperplasia without lower urinary tract symptoms; Z88.0 Allergy status to penicillin
CPT/HCPCS: 36415; 80053; 80305; 80307; 85027; 86780; 93005; 93010; Q0162